=== PATIENT | male | born 1955 | race Caucasian/White ===

== ENCOUNTER 2019-02-23 03:13 | Inpatient (IN) ==
[2019-02-23] MEDS ORDERED: Aspirin 81 MG TAB.CHEW PO ONE (03:18)
[2019-02-23] MEDS ORDERED: Nitroglycerin 0.4 MG TAB.SUBL SL PRN (03:50)
[2019-02-23 04:14] LABS: Basophils # 0.1 K/mcL (0.0-0.2); Basophils % 0.6 %; Eosinophils # 0.3 K/mcL (0.0-0.6); Hemoglobin 13.4 g/dL (12.9-16.9); Immature Granulocytes % 0.4 % (0-4); Lymphocytes # 2.3 K/mcL (0.6-4.6); Lymphocytes % 28.3 %; Mean Corpuscular HGB Conc 33.5 g/dL (31.6-35.5); Mean Corpuscular Hemoglobin 28.3 pg (28.0-33.3); Mean Corpuscular Volume 84.4 fL (83.0-100.0); Mean Platelet Volume 8.7 fL (9.4-12.4); Monocytes # 0.6 K/mcL (0.0-1.3); Monocytes % 7.6 %; Neutrophils # 4.8 K/mcL (1.6-8.9); Platelet Count 321 K/mcL (140-400); Red Blood Count 4.74 M/mcL (4.19-5.50); Red Cell Distribution Width 12.8 % (11.5-14.5); Segmented Neutrophils % 59.1 %
[2019-02-23] MEDS ORDERED: *HR* FentaNYL (PF) 100 MCG/2 ML VIAL IVP ONE (04:20)
[2019-02-23 04:21] LABS: INR 0.9; Prothrombin Time 9.7 Seconds (9.4-12.1)
[2019-02-23 04:37] LABS: Alanine Aminotransferase 8 Units/L (7-52); Albumin 3.6 g/dL (3.5-5.7); Albumin/Globulin Ratio 1.3 (1.1-2.2); Alkaline Phosphatase 90 Units/L (34-104); Aspartate Amino Transferase 13 Units/L (13-39); BUN/Creatinine Ratio 12 (6-26); Bilirubin,Indirect 0.3 mg/dL (0.0-1.2); Bilirubin,Total 0.3 mg/dL (0.3-1.0); Blood Urea Nitrogen 27 mg/dL (8-23); Calcium 8.8 mg/dL (8.6-10.3); Carbon Dioxide 27 mEq/L (23-29); Chloride 97 mEq/L (98-107); Globulin 2.7 g/dL (2.4-3.5); Glucose 500 mg/dL (70-105); Lipase 33 Units/L (11-82); Osmolality,Calculated 307 (280-300); Potassium 3.7 mEq/L (3.5-5.1); Sodium 135 mEq/L (136-145); Total Protein 6.3 g/dL (6.4-8.9); Troponin I < 0.03 ng/mL (< 0.04); eGFR For Non-African Americans 29 (> 60)
--- NOTE | 2019-02-23 04:37 | Emergency Department Note ---
Disposition Clinical Impression: Chest pain Qualifiers: Chest pain type: unspecified Qualified Code(s): R07.9 - Chest pain, unspecified Disposition: Admitted As Inpatient Condition: Fair [facility] Care Provider[facility] - Forms: ED Satisfaction Letter Time of Disposition: 05:53 Chest Pain HPI - General Chief Complaint: ED Chest Pain Stated Complaint: chest pain Time Seen by Provider: 02/23/19 03:18 Source: patient Mode of arrival: ambulatory Limitations: no limitations Vital Signs Reviewed: Yes Nursing Notes Reviewed: Yes - History of Present Illness HPI Narrative: Alert and oriented nontoxic-appearing 64-year-old male with a history of diabetes, hypertension, hyperlipidemia presents for evaluation of a sudden onset of nonradiating left lower chest/left lateral chest pain that began while he was sitting on the couch watching television. He describes the pain as sharp in nature. It is worse with inspiration, cough, and is somewhat reproducible with palpation. He denies any associated nausea, vomiting, diaphoresis, fever, chills, hemoptysis. He denies any known alleviating factors. Currently, he rates his pain a 6 out of 10 on a 10 point scale. Pt complaint: chest pain Onset (ago): Just [employer] Duration: constant Onset: during rest Pain Location: left chest Severity: moderate Severity scale (1-10): 6 Quality: sharp Pain Radiation: none Improves with: nothing Worsens with: exertion, inspiration, palpation, other (Cough) Associated symptoms: Denies: nausea, vomiting, diaphoresis, syncope, palpitations, fever, leg swelling Treatments prior to arrival chest pain: none - Related Data Home Medications Medication Instructions Recorded Confirmed Cyanocobalamin (Vitamin B-12) 100 mcg PO HS 05/28/17 01/15/19 [Vitamin B-12] Lisinopril [Zestril] 40 mg PO DAILY 05/28/17 01/15/19 Magnesium Oxide [Magnesium] 400 mg PO QPM 05/28/17 01/15/19 Subcutaneous Insulin Pump [T:Slim] 1 each MC AD 05/28/17 01/15/19 Tamsulosin [Flomax] 0.4 mg PO HS 05/28/17 01/15/19 hydroCHLOROthiazide 25 mg PO DAILY 05/28/17 01/15/19 [Hydrochlorothiazide] Amlodipine Besylate 2.5 mg PO DAILY 01/14/19 01/15/19 Folic Acid 1 mg PO BID 01/14/19 01/15/19 Acetaminophen [Tylenol] 1,000 mg PO BID PRN 01/15/19 01/15/19 Acetaminophen/Butalbital/Caffe 1 tab PO TID PRN MDD 6 TABS PER DAY 01/15/19 01/15/19 [Fioricet] Acyclovir [Zovirax] 400 mg PO BID 01/15/19 01/15/19 Aspirin [Adult Aspirin Regimen] 81 mg PO HS 01/15/19 01/15/19 Aspirin/Acetaminophen/Caffeine 2 tab PO DAILY PRN 01/15/19 01/15/19 [Excedrin Migraine Caplet] Aspirin/Sod Bicarb/Citric Acid 2 tab PO DAILY 01/15/19 01/15/19 [[place] Original Tab Eff] Atorvastatin Calcium [Lipitor] 80 mg PO HS 01/15/19 01/15/19 Capsaicin [Arthritis Pain Relief] 1 appl TP TID PRN 01/15/19 01/15/19 Cetirizine HCl [Zyrtec] 10 mg PO DAILY 01/15/19 01/15/19 DULoxetine [Cymbalta] 90 mg PO HS 01/15/19 01/15/19 Dextrose/Vitamin D3 [Trueplus 4 tab PO PRN PRN 01/15/19 01/15/19 Glucose 4 gm Tab Chew] EPINEPHrine [Epipen] 0.3 mg IM ONCE PRN 01/15/19 01/15/19 Ergocalciferol (VITAMIN D2) 6,000 unit PO HS 01/15/19 01/15/19 [Vitamin D2] Folic Acid/Vit Bcomp,C [Hm Super 400 mcg PO HS 01/15/19 01/15/19 Vitamin B Complex] Glucagon,Human Recombinant 1 mg IJ ONCE PRN 01/15/19 01/15/19 [Glucagon Emergency Kit] Insulin ASPART [NovoLOG] 0 unit SQ AD 01/15/19 01/15/19 Magnesium Oxide [Magnesium] 800 mg PO QAM 01/15/19 01/15/19 Multivitamin [Daily Multiple 1 tab PO HS 01/15/19 01/15/19 Vitamin] Omeprazole Magnesium [Prilosec Otc] 20 mg PO HS 01/15/19 01/15/19 Previous Rx's Medication Instructions Recorded Aspirin Enteric Coated [Aspirin EC] 81 mg PO HS tablet. 01/18/19 Propranolol [Inderal] 10 mg PO HS #30 tablet 01/18/19 SUMAtriptan succinate [Imitrex] 50 mg PO DAILY PRN #20 tablet 01/18/19 Allergies Allergy/AdvReac Type Severity Reaction Status Date / Time No Known Allergies Allergy Verified 01/15/19 16:58 All systems ED: reviewed and negative except as stated. Review of Systems: As Per HPI Constitutional: Denies: fever, chills, weakness, weight change Eyes: Denies: eye pain, eye discharge, vision change ENT ED: Denies: ear pain, throat pain, dental pain, hearing loss, epistaxis, congestion, dysphagia Cardiovascular: Reports: as per HPI, chest pain. Denies: palpitations, dyspnea on exertion, edema, syncope Respiratory: Denies: cough, dyspnea, wheezes, hemoptysis, stridor Gastrointestinal: Denies: abdominal pain, nausea, vomiting, diarrhea, constipation, hematemesis, melena, hematochezia Genitourinary: Denies: urgency, dysuria, frequency, hematuria Musculoskeletal: Denies: back pain, neck pain, arthralgia, myalgia Integumentary: Denies: rash, abrasion, lesions Neurological: Denies: headache, weakness, numbness, paresthesias, confusion, abnormal gait, vertigo Psychiatric: Denies: anxiety, depression, suicidal thoughts, homicidal thoughts, auditory hallucinations, visual hallucinations Endocrine: Denies: fatigue Hematological/Lymphatic: Denies: easy bleeding, easy bruising Allergic/Immunologic: Denies: facial swelling, urticaria Chest Pain PMH - Past Medical History Medical history: Reports: diabetes, hypertension, migraine, renal disease, other Surgical history: Reports: appendectomy, cholecystectomy, other Psychiatric history: Reports: anxiety, depression - Social History Smoking Status: Former smoker Alcohol use: Reports: occasionally Drug use: Reports: none Physical Exam - General Limitations: no limitations General appearance: alert, in no apparent distress - Head Head exam: atraumatic, normocephalic, normal inspection - Eye Eye exam: Present: normal appearance, PERRL, EOMI. Absent: conjunctival injection - ENT ENT exam: mucous membranes moist - Neck Neck exam: Present: normal inspection, full ROM - Chest Chest inspection: Present: normal inspection, symmetric chest wall rise, tenderness (Left-sided anterior/anterolateral chest wall tenderness with palpation area this somewhat reproduces the patient's symptoms but not in their entirety.) - Respiratory Respiratory exam: Present: normal lung sounds bilaterally. Absent: respiratory distress, wheezes, stridor, accessory muscle use, prolonged expiratory phase - Cardiovascular Cardiovascular exam: Present: regular rate, normal rhythm, normal heart sounds - Abdominal Exam Abdominal exam: Present: soft, Non-Tender, normal bowel sounds - Extremities Exam Extremities exam: Present: normal inspection, full ROM. Absent: pedal edema - Neurological Exam Neurological exam: Present: alert, oriented X3, normal gait - Psychiatric Psychiatric exam: Present: normal affect, normal mood - Skin Skin exam: Present: warm, dry, intact, normal color. Absent: rash Course Course Narrative: 0516: I spoke with Dr. Duncan, admitting hospitalist. He has accepted the patient for admission to the hospitalist care for a chest pain rule out. This patient's case has been discussed with Dr. Hartman as well. Dr. Hartman has had a [id number] evaluation with the patient and agrees with admission to the hospitalist service. - Reevaluation(s) Reevaluation #1: The patient states complete resolution of chest pain after the administration of IV fentanyl. He has a normal EKG. Normal troponin. Normal chest x-ray. He does, however, have a heart score of 4. As such, he will be admitted to medicine for further cardiac evaluation. The patient is agreeable with this plan. Time: 05:30 Vital Signs Temperature 98.2 F 02/23/19 03:15 Pulse Rate 102 02/23/19 03:15 Respiratory Rate 02/23/19 03:15 Blood Pressure 218/126 02/23/19 03:15 O2 Sat by Pulse Oximetry 97 02/23/19 03:15 Temperature 98.2 F 02/23/19 03:15 Pulse Rate 82 02/23/19 05:24 Respiratory Rate 20 02/23/19 05:24 Blood Pressure 177/126 02/23/19 05:24 O2 Sat by Pulse Oximetry 96 02/23/19 05:24 Oxygen Delivery Oxygen Delivery Room Air Chest Pain - Medical Records Medical records reviewed: Yes I reviewed the patient's medical records. - Lab Data Lab results reviewed: Yes I reviewed the patient's lab results. Lab results narrative: Lab Results 02/23/19 02/23/19 02/23/19 Range/Units 03:52 03:52 03:52 WBC 8.2 (4.3-11.1) K/mcL RBC 4.74 (4.19-5.50) M/mcL Hgb 13.4 (12.9-16.9) g/dL Hct 40.0 (37.5-50.1) % MCV 84.4 (83.0-100.0) fL MCH 28.3 (28.0-33.3) pg MCHC 33.5 (31.6-35.5) g/dL RDW 12.8 (11.5-14.5) % Plt Count 321 (140-400) K/mcL MPV 8.7 L (9.4-12.4) fL Immature Gran % 0.4 (0-4) % Seg Neutrophils % 59.1 % Lymphocytes % 28.3 % Monocytes % 7.6 % Eosinophils % 4.0 % Basophils % 0.6 % Neutrophils # 4.8 (1.6-8.9) K/mcL Lymphocytes # 2.3 (0.6-4.6) K/mcL Monocytes # 0.6 (0.0-1.3) K/mcL Eosinophils # 0.3 (0.0-0.6) K/mcL Basophils # 0.1 (0.0-0.2) K/mcL PT 9.7 (9.4-12.1) Seconds INR 0.9 APTT 32.0 (26.0-36.0) Seconds D-Dimer 480 (0-500) ng/mLFEU Sodium 135 L (136-145) mEq/L Potassium 3.7 (3.5-5.1) mEq/L Chloride 97 L (98-107) mEq/L Carbon Dioxide 27 (23-29) mEq/L BUN 27 H (8-23) mg/dL Creatinine 2.28 H (0.70-1.30) mg/dL Est GFR ( Amer) 35 L (> 60) Est GFR (Non-Af Amer) 29 L (> 60) BUN/Creatinine Ratio 12 (6-26) Glucose 500 H* (70-105) mg/dL Calculated Osmolality 307 H (280-300) Calcium 8.8 (8.6-10.3) mg/dL Total Bilirubin 0.3 (0.3-1.0) mg/dL Direct Bilirubin 0.0 (0.0-0.2) mg/dL Indirect Bilirubin 0.3 (0.0-1.2) mg/dL AST 13 (13-39) Units/L ALT 8 (7-52) Units/L Alkaline Phosphatase 90 (34-104) Units/L Troponin I < 0.03 (< 0.04) ng/mL Serum Total Protein 6.3 L (6.4-8.9) g/dL Albumin 3.6 (3.5-5.7) g/dL Globulin 2.7 (2.4-3.5) g/dL Albumin/Globulin Ratio 1.3 (1.1-2.2) Lipase 33 (11-82) Units/L Result diagrams: 02/23/19 03:52 02/23/19 03:52 Lab Results 02/23/19 02/23/19 02/23/19 Range/Units 03:52 03:52 03:52 WBC 8.2 (4.3-11.1) K/mcL RBC 4.74 (4.19-5.50) M/mcL Hgb 13.4 (12.9-16.9) g/dL Hct 40.0 (37.5-50.1) % MCV 84.4 (83.0-100.0) fL MCH 28.3 (28.0-33.3) pg MCHC 33.5 (31.6-35.5) g/dL RDW 12.8 (11.5-14.5) % Plt Count 321 (140-400) K/mcL MPV 8.7 L (9.4-12.4) fL Immature Gran % 0.4 (0-4) % Seg Neutrophils % 59.1 % Lymphocytes % 28.3 % Monocytes % 7.6 % Eosinophils % 4.0 % Basophils % 0.6 % Neutrophils # 4.8 (1.6-8.9) K/mcL Lymphocytes # 2.3 (0.6-4.6) K/mcL Monocytes # 0.6 (0.0-1.3) K/mcL Eosinophils # 0.3 (0.0-0.6) K/mcL Basophils # 0.1 (0.0-0.2) K/mcL PT 9.7 (9.4-12.1) Seconds INR 0.9 APTT 32.0 (26.0-36.0) Seconds D-Dimer 480 (0-500) ng/mLFEU Sodium 135 L (136-145) mEq/L Potassium 3.7 (3.5-5.1) mEq/L Chloride 97 L (98-107) mEq/L Carbon Dioxide 27 (23-29) mEq/L BUN 27 H (8-23) mg/dL Creatinine 2.28 H (0.70-1.30) mg/dL Est GFR ( Amer) 35 L (> 60) Est GFR (Non-Af Amer) 29 L (> 60) BUN/Creatinine Ratio 12 (6-26) Glucose 500 H* (70-105) mg/dL Calculated Osmolality 307 H (280-300) Calcium 8.8 (8.6-10.3) mg/dL Total Bilirubin 0.3 (0.3-1.0) mg/dL Direct Bilirubin 0.0 (0.0-0.2) mg/dL Indirect Bilirubin 0.3 (0.0-1.2) mg/dL AST 13 (13-39) Units/L ALT 8 (7-52) Units/L Alkaline Phosphatase 90 (34-104) Units/L Troponin I < 0.03 (< 0.04) ng/mL Serum Total Protein 6.3 L (6.4-8.9) g/dL Albumin 3.6 (3.5-5.7) g/dL Globulin 2.7 (2.4-3.5) g/dL Albumin/Globulin Ratio 1.3 (1.1-2.2) Lipase 33 (11-82) Units/L - Radiology Data Radiology results reviewed: Yes I reviewed the patient's radiology results. - EKG Data EKG attestation: Yes I reviewed and interpreted this EKG. EKG results narrative: EKG shows a sinus rhythm at a rate of 96 bpm. TN interval 176, QRS duration 91, QT/QTc interval 44/435. No ectopy noted. No ST elevation or significant dep ressions. No changes in morphology when compared to an EKG dated from 08/2016. Heart Score - Score History: Moderately Suspicious EKG: Normal Age: 45-65 Risk Factors: Equal/Greater than 3 risk factor or history of atherosclerotic disease Troponin: Less than normal limit HEART Score Total: 4
--- NOTE | 2019-02-23 05:06 | Emergency Department Note ---
Disposition Clinical Impression: Chest pain Disposition: Admitted As Inpatient Condition: Fair [facility]errals: [facility] [Primary Care Provider[facility] - Forms: ED Satisfaction Letter Time of Disposition: 05:12 General Adult HPI - General Chief complaint: ED Chest Pain Stated complaint: chest pain Time Seen by Provider: 02/23/19 03:18 Source: patient Mode of arrival: ambulatory Limitations: no limitations - History of Present Illness Pain Scale: 6 - Related Data Home Medications Medication Instructions Recorded Confirmed Cyanocobalamin (Vitamin B-12) 100 mcg PO HS 05/28/17 01/15/19 [Vitamin B-12] Lisinopril [Zestril] 40 mg PO DAILY 05/28/17 01/15/19 Magnesium Oxide [Magnesium] 400 mg PO QPM 05/28/17 01/15/19 Subcutaneous Insulin Pump [T:Slim] 1 each MC AD 05/28/17 01/15/19 Tamsulosin [Flomax] 0.4 mg PO HS 05/28/17 01/15/19 hydroCHLOROthiazide 25 mg PO DAILY 05/28/17 01/15/19 [Hydrochlorothiazide] Amlodipine Besylate 2.5 mg PO DAILY 01/14/19 01/15/19 Folic Acid 1 mg PO BID 01/14/19 01/15/19 Acetaminophen [Tylenol] 1,000 mg PO BID PRN 01/15/19 01/15/19 Acetaminophen/Butalbital/Caffe 1 tab PO TID PRN MDD 6 TABS PER DAY 01/15/19 01/15/19 [Fioricet] Acyclovir [Zovirax] 400 mg PO BID 01/15/19 01/15/19 Aspirin [Adult Aspirin Regimen] 81 mg PO HS 01/15/19 01/15/19 Aspirin/Acetaminophen/Caffeine 2 tab PO DAILY PRN 01/15/19 01/15/19 [Excedrin Migraine Caplet] Aspirin/Sod Bicarb/Citric Acid 2 tab PO DAILY 01/15/19 01/15/19 [[place] Original Tab Eff] Atorvastatin Calcium [Lipitor] 80 mg PO HS 01/15/19 01/15/19 Capsaicin [Arthritis Pain Relief] 1 appl TP TID PRN 01/15/19 01/15/19 Cetirizine HCl [Zyrtec] 10 mg PO DAILY 01/15/19 01/15/19 DULoxetine [Cymbalta] 90 mg PO HS 01/15/19 01/15/19 Dextrose/Vitamin D3 [Trueplus 4 tab PO PRN PRN 01/15/19 01/15/19 Glucose 4 gm Tab Chew] EPINEPHrine [Epipen] 0.3 mg IM ONCE PRN 01/15/19 01/15/19 Ergocalciferol (VITAMIN D2) 6,000 unit PO HS 01/15/19 01/15/19 [Vitamin D2] Folic Acid/Vit Bcomp,C [Hm Super 400 mcg PO HS 01/15/19 01/15/19 Vitamin B Complex] Glucagon,Human Recombinant 1 mg IJ ONCE PRN 01/15/19 01/15/19 [Glucagon Emergency Kit] Insulin ASPART [NovoLOG] 0 unit SQ AD 01/15/19 01/15/19 Magnesium Oxide [Magnesium] 800 mg PO QAM 01/15/19 01/15/19 Multivitamin [Daily Multiple 1 tab PO HS 01/15/19 01/15/19 Vitamin] Omeprazole Magnesium [Prilosec Otc] 20 mg PO HS 01/15/19 01/15/19 Previous Rx's Medication Instructions Recorded Aspirin Enteric Coated [Aspirin EC] 81 mg PO HS tablet. 01/18/19 Propranolol [Inderal] 10 mg PO HS #30 tablet 01/18/19 SUMAtriptan succinate [Imitrex] 50 mg PO DAILY PRN #20 tablet 01/18/19 Allergies Allergy/AdvReac Type Severity Reaction Status Date / Time No Known Allergies Allergy Verified 01/15/19 16:58 Constitutional: Denies: fever, chills, weakness, weight change Eyes: Denies: eye pain, eye discharge, vision change ENT ED: Denies: ear pain, throat pain, dental pain, hearing loss, epistaxis, congestion, dysphagia Cardiovascular: Reports: as per HPI, chest pain. Denies: palpitations, dyspnea on exertion, edema, syncope Respiratory: Denies: cough, dyspnea, wheezes, hemoptysis, stridor Gastrointestinal: Denies: abdominal pain, nausea, vomiting, diarrhea, constipation, hematemesis, melena, hematochezia Genitourinary: Denies: urgency, dysuria, frequency, hematuria Musculoskeletal: Denies: back pain, neck pain, arthralgia, myalgia Integumentary: Denies: rash, abrasion, lesions Neurological: Denies: headache, weakness, numbness, paresthesias, confusion, abnormal gait, vertigo Psychiatric: Denies: anxiety, depression, suicidal thoughts, homicidal thoughts, auditory hallucinations, visual hallucinations Endocrine: Denies: fatigue Hematological/Lymphatic: Denies: easy bleeding, easy bruising Allergic/Immunologic: Denies: facial swelling, urticaria Past Medical History - Past Medical History Medical history: Reports: diabetes, hypertension, migraine, renal disease, other Surgical history: Reports: appendectomy, cholecystectomy, other Psychiatric history: Reports: anxiety, depression - Social History Smoking Status: Former smoker Smokeless Tobacco Status: No Alcohol use: Reports: occasionally Drug use: Reports: none Physical Exam - General Limitations: no limitations General appearance: alert, in no apparent distress Course Vital Signs Temperature 98.2 F 02/23/19 03:15 Pulse Rate 102 02/23/19 03:15 Respiratory Rate 20 02/23/19 03:15 Blood Pressure 218/126 02/23/19 03:15 O2 Sat by Pulse Oximetry 97 02/23/19 03:15 Temperature 98.2 F 02/23/19 03:15 Pulse Rate 100 02/23/19 04:30 Respiratory Rate 20 02/23/19 04:30 Blood Pressure 210/126 02/23/19 04:30 O2 Sat by Pulse Oximetry 97 02/23/19 04:30 Oxygen Delivery Oxygen Delivery Room Air Medical Decision Making - Lab Data Result diagrams: 02/23/19 03:52 02/23/19 03:52 Lab Results 02/23/19 02/23/19 02/23/19 Range/Units 03:52 03:52 03:52 WBC 8.2 (4.3-11.1) K/mcL RBC 4.74 (4.19-5.50) M/mcL Hgb 13.4 (12.9-16.9) g/dL Hct 40.0 (37.5-50.1) % MCV 84.4 (83.0-100.0) fL MCH 28.3 (28.0-33.3) pg MCHC 33.5 (31.6-35.5) g/dL RDW 12.8 (11.5-14.5) % Plt Count 321 (140-400) K/mcL MPV 8.7 L (9.4-12.4) fL Immature Gran % 0.4 (0-4) % Seg Neutrophils % 59.1 % Lymphocytes % 28.3 % Monocytes % 7.6 % Eosinophils % 4.0 % Basophils % 0.6 % Neutrophils # 4.8 (1.6-8.9) K/mcL Lymphocytes # 2.3 (0.6-4.6) K/mcL Monocytes # 0.6 (0.0-1.3) K/mcL Eosinophils # 0.3 (0.0-0.6) K/mcL Basophils # 0.1 (0.0-0.2) K/mcL PT 9.7 (9.4-12.1) Seconds INR 0.9 APTT 32.0 (26.0-36.0) Seconds D-Dimer 480 (0-500) ng/mLFEU Sodium 135 L (136-145) mEq/L Potassium 3.7 (3.5-5.1) mEq/L Chloride 97 L (98-107) mEq/L Carbon Dioxide 27 (23-29) mEq/L BUN 27 H (8-23) mg/dL Creatinine 2.28 H (0.70-1.30) mg/dL Est GFR ( Amer) 35 L (> 60) Est GFR (Non-Af Amer) 29 L (> 60) BUN/Creatinine Ratio 12 (6-26) Glucose 500 H* (70-105) mg/dL Calculated Osmolality 307 H (280-300) Calcium 8.8 (8.6-10.3) mg/dL Total Bilirubin 0.3 (0.3-1.0) mg/dL Direct Bilirubin 0.0 (0.0-0.2) mg/dL Indirect Bilirubin 0.3 (0.0-1.2) mg/dL AST 13 (13-39) Units/L ALT 8 (7-52) Units/L Alkaline Phosphatase 90 (34-104) Units/L Troponin I < 0.03 (< 0.04) ng/mL Serum Total Protein 6.3 L (6.4-8.9) g/dL Albumin 3.6 (3.5-5.7) g/dL Globulin 2.7 (2.4-3.5) g/dL Albumin/Globulin Ratio 1.3 (1.1-2.2) Lipase 33 (11-82) Units/L Attestation Statement - Attestation Attestation: I have seen this patient with the mid level provider. I personally evaluated this patient. I reviewed the charting by the mid-level provider and in agreement with the charting including past medical history family history review of systems current history and physical examination laboratory testing and imaging. Please see documentation by the mid-level provider for full H&P and documentation. Patient presented to the emergency department with chief complaint of sudden onset of left-sided chest pain. He describes it as sharp but also just very intense and radiating around to the left side of his chest. He states he did not really get short of breath but it does sort of hurt to breathe and he does not feel right. He has never had pain like this before. He does not think he goes into his abdomen but states that he has some chronic issues with his abdomen. He denies palpitations. Denies recent surgery travel or immobilization. He states he has never had chest pain like this in the past he has multiple risk factors for coronary artery disease. EKG is interpreted by myself as a normal sinus rhythm, heart rate of 96, no evidence of acute ischemic dysrhythmia or hyperkalemia with compared to prior EKG, there was no acute change. Chest x-ray as interpreted by radiology showed no acute findings. Basic laboratory studies revealed significant hyperglycemia of 500 negative cardiac enzymes negative d-dimer, chronic renal insufficiency with a creatinine of 2.28, slightly increased from baseline. Because on my physical examination it was difficult to delineate his pain being intra-abdominal versus intrathoracic, he did also order a CT scan of the abdomen pelvis with no IV contrast to evaluate for any evidence of aortic aneurysm as it was in his left upper abdomen/left lower chest sudden onset in nature, and somewhat into his back, CT scan abdomen pelvis showed multiple chronic stable findings, no evidence of aortic pathology. Although the patient's symptoms are relatively atypical, he has never had symptoms like this in the past it has been over 10 years since any cardiac eval uation and he has multiple cardiac risk factors, heart score was 4, and patient will be admitted to the hospital for further evaluation and management of chest pain.
[2019-02-23] MEDS ORDERED: *HR* Labetalol 20 MG/4 ML SYRINGE IVP ONE (05:13)
[2019-02-23] MEDS: Insulin Human Regular 10 UNIT in 0.9 % Sodium Chloride 10 ML IV ONE ×2 (05:15→06:17)
[2019-02-23] MEDS ORDERED: *HR* Dextrose 50 % in Water (Syg) 50 ML SYRINGE IVP PRN (09:52)
[2019-02-23] MEDS ORDERED: traMADol 50 MG TABLET PO PRN (09:52)
[2019-02-23] MEDS ORDERED: Ondansetron 4 MG/2 ML VIAL IVP PRN (09:52)
[2019-02-23] MEDS ORDERED: D5% in Water 1,000 ML IVC PRN (09:52)
[2019-02-23] MEDS ORDERED: Acetaminophen 325 MG TABLET PO PRN (09:52)
[2019-02-23] MEDS ORDERED: Dextrose Gel 15 GM/37.5 ML TUBE PO PRN ×2 (09:52)
[2019-02-23] MEDS ORDERED: Naloxone 0.4 MG/ML INJ IVP PRN (09:52)
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
[2019-02-23] MEDS ORDERED: Capsaicin 0.025% 60 GM TUBE TP PRN (09:59)
[2019-02-23] MEDS ORDERED: 0.9 % Sodium Chloride 1,000 ML IVC SCH (10:00)
[2019-02-23] MEDS: Magnesium Oxide 400 MG TABLET PO SCH ×2 (10:38→17:32)
[2019-02-23] MEDS: amLODIPine 5 MG TABLET PO SCH (10:38)
[2019-02-23] MEDS: *HR* HYDROcodone/Acet 5/325 mg TABLET PO PRN ×2 (10:38→22:27)
[2019-02-23] MEDS: Lisinopril 20 MG TABLET PO SCH (10:38)
[2019-02-23] MEDS: Acyclovir 200 MG CAPSULE PO SCH ×2 (10:42→21:31)
[2019-02-23 10:52] LABS: Magnesium 2.1 mg/dL (1.6-2.6)
[2019-02-23 10:53] LABS: Troponin I < 0.03 ng/mL (< 0.04)
[2019-02-23] MEDS: Insulin LISPRO 300 UNITS/3 ML VIAL SQ SCH ×2 (12:04→17:31)
[2019-02-23 12:14] LABS: Estimated Average Glucose 226 mg/dl; Hemoglobin A1C 9.5 %
--- NOTE | 2019-02-23 13:15 | Electrocardiograph Report ---
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
[2019-02-23] MEDS: *HR* Heparin 5,000 UNIT/ML VIAL SQ SCH ×2 (15:17→21:28)
[2019-02-23] MEDS ORDERED: Insulin LISPRO 300 UNITS/3 ML VIAL SQ SCH (21:00)
[2019-02-23] MEDS: SUMAtriptan succinate 50 MG TABLET PO PRN (21:26)
[2019-02-23] MEDS: Aspirin Enteric Coated 81 MG Tablet PO SCH (21:27)
[2019-02-24] MEDS ORDERED: Regadenoson 0.4 MG/5 ML SYRINGE IVP ONE (06:10)
[2019-02-24] MEDS: *HR* Heparin 5,000 UNIT/ML VIAL SQ SCH ×3 (06:37→21:09)
[2019-02-24] MEDS: Acyclovir 200 MG CAPSULE PO SCH (07:39)
[2019-02-24] MEDS: Magnesium Oxide 400 MG TABLET PO SCH ×2 (07:39→17:18)
[2019-02-24] MEDS: *HR* HYDROcodone/Acet 5/325 mg TABLET PO PRN ×2 (07:39→15:27)
[2019-02-24] MEDS: Insulin LISPRO 300 UNITS/3 ML VIAL SQ SCH (07:40)
[2019-02-24 08:53] LABS: Hematocrit 39.8 % (37.5-50.1); Hemoglobin 12.9 g/dL (12.9-16.9); Mean Corpuscular HGB Conc 32.4 g/dL (31.6-35.5); Mean Corpuscular Hemoglobin 27.8 pg (28.0-33.3); Mean Corpuscular Volume 85.8 fL (83.0-100.0); Mean Platelet Volume 8.6 fL (9.4-12.4); Platelet Count 330 K/mcL (140-400); Red Blood Count 4.64 M/mcL (4.19-5.50); Red Cell Distribution Width 13.4 % (11.5-14.5)
[2019-02-24 09:08] LABS: Potassium 3.5 mEq/L (3.5-5.1)
--- NOTE | 2019-02-24 09:17 | Electrocardiograph Report ---
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
[2019-02-24] MEDS: amLODIPine 5 MG TABLET PO SCH (09:40)
[2019-02-24] MEDS: Lisinopril 20 MG TABLET PO SCH (09:40)
--- NOTE | 2019-02-24 10:22 | Internal Med Progress Note ---
Hospitalist Progress Note - Encounter Date of Encounter: 02/24/19 Time of Encounter: 10:20 - Subjective Interval History: Admitted for chest pain and hypertensive urgency - Exam Vitals: Temp Pulse Resp BP Pulse Ox 98.2 F 93 16 141/86 98 02/24/19 07:25 02/24/19 07:25 02/24/19 07:25 02/24/19 09:38 02/24/19 07:25 Exam: General appearance: Present: A&O X 3, no acute distress Head exam: Present: normocephalic Respiratory exam: Present: CTAB. Absent: accessory muscle use, rales, rhonchi, wheezes Cardiovascular exam: Present: RRR, +S1, +S2. Absent: diastolic murmur, gallop, rubs, systolic murmur GI/Abdominal exam: Soft, NT, ND, +BS Extremities exam: Absent: pedal edema Neurological exam: Present: alert, oriented X3, no focal deficits. Absent: altered - Assessment and Plan (1) Hypertensive urgency Current Visit: Yes Status: Acute Assessment and Plan: BP was 218/126 on arrival.He was given Labetalol 10mg IV x1. Resume oral anti-hypertensive therapy.Hydralazine IV prn BP controlled this am on oral amlodipine and lisinopril (2) Diabetes mellitus Current Visit: Yes Status: Chronic Assessment and Plan: Patient with insulin-dependent diabetes mellitus status post pancreatectomy HGB a1c 9.5 Continue basal insulin and SSI. Outpatient management (3) Polycystic kidney disease Current Visit: Yes Status: Chronic Assessment and Plan: Likely contributing to poorly controlled hypertension CT abdomen/pelvis revealed polycystic kidney disease with numerous benign and proteinaceous cysts, not appreciably changed since the previous study on 05/22. Outpatient management. (4) Chest pain Current Visit: Yes Status: Acute Assessment and Plan: Patient with left sided chest pain the setting of hypertensive urgency. Chest pain is reproducible with chest wall palpation Given patient's age and CAD risk factors (hypertension, DM, BMI > 30), patient w as scheduled for stress test this am However patient says medication for stress test gave him a severe headache and stress test was halted Echo was done and came back WNL Pt has reproducible chest pain in a dermatomal distribution suspicious for shingles Started on valcyclovir TID (5) CKD (chronic kidney disease) stage 3, GFR 30-59 ml/min Current Visit: Yes Status: Chronic Assessment and Plan: Renal function near baseline. Continue WALI inhibitor. Follow-up with nephrology as an outpatient (6) HLD (hyperlipidemia) Current Visit: No Status: Chronic Assessment and Plan: Continue statin. (7) Obesity (BMI 30.0-34.9) Current Visit: Yes Status: Chronic Assessment and Plan: Lifestyle modification. (8) Headache Current Visit: Yes Status: Acute Assessment and Plan: Symptomatic control. CT head showed no acute intracranial abnormality (9) Shingles Current Visit: Yes Status: Acute Assessment and Plan: On valacyclovir TID (10) DVT prophylaxis Current Visit: No Status: Acute Assessment and Plan: Heparin subcutaneous TID - Time Spent with Patient Total time spent is greater than 50% in coordination of care (as documented) at patient's floor/unit and/or counseling patient: Internal Medicine: Result - Labs CBC & Chem 7: 02/24/19 08:29 02/24/19 08:29 Labs: Short CBC 02/24/19 Range/Units 08:29 WBC 8.8 (4.3-11.1) K/mcL Hgb 12.9 (12.9-16.9) g/dL Hct 39.8 (37.5-50.1) % Plt Count 330 (140-400) K/mcL BMP 02/24/19 08:29 Sodium 138 Potassium 3.5 Chloride 104 Carbon Dioxide 27 BUN 25 H Creatinine 1.82 H Glucose 153 H Calcium 9.0 Cardiac Enzymes 02/23/19 02/23/19 02/23/19 Range/Units 10:17 15:47 18:16 Troponin I < 0.03 < 0.03 < 0.03 (< 0.04) ng/mL - ABG Interpretation ABG results: PT/INR, D-dimer PT 9.7 Seconds (9.4-12.1) 02/23/19 03:52 480 ng/mLFEU (0-500) 02/23/19 03:52 - Impressions Impressions Abdomen/Pelvis CT 02/23/19 04:19 IMPRESSION: 1. No acute findings in the abdomen or pelvis to account for the patient's pain. 2. Polycystic kidney disease with numerous benign and proteinaceous cysts, not appreciably changed since the previous study on 05/22/2017. 3. Enlarged prostate. 4. Colonic diverticulosis. D/ / 02/23/2019 08:33:20 Tomas Maria MD / dion Interpreting Provider: Tomas Maria MD Consult Discharge Plan - Plan [facility]errals: [facility] [Primary Care Provider] - (2) Diabetes mellitus Qualifiers: Diabetes mellitus type: type 2 Diabetes mellitus snf insulin use: with snf use Diabetes mellitus complication status: without complication Qualified Code(s): E11.9 - Type 2 diabetes mellitus without complications; Z79.4 - extermination supervisor (current) use of insulin (4) Chest pain Qualifiers: Chest pain type: unspecified Qualified Code(s): R07.9 - Chest pain, unspecified (6) HLD (hyperlipidemia) Qualifiers: Hyperlipidemia type: unspecified Qualified Code(s): E78.5 - Hyperlipidemia, unspecified (8) Headache Qualifiers: Headache type: other vascular headache Qualified Code(s): G44.1 - Vascular headache, not elsewhere classified (9) Shingles Qualifiers: Qualified Code(s): B02.9 - Zoster without complications
[2019-02-24] MEDS: SUMAtriptan succinate 50 MG TABLET PO PRN (12:35)
[2019-02-24] MEDS: valACYclovir 500 MG TABLET PO SCH ×2 (14:34→21:09)
[2019-02-24] MEDS: Aspirin Enteric Coated 81 MG Tablet PO SCH (21:09)
[2019-02-25 04:32] LABS: Basophils % 0.4 %; Eosinophils # 0.3 K/mcL (0.0-0.6); Eosinophils % 3.4 %; Hematocrit 38.2 % (37.5-50.1); Hemoglobin 12.2 g/dL (12.9-16.9); Immature Granulocytes % 0.2 % (0-4); Lymphocytes # 2.6 K/mcL (0.6-4.6); Lymphocytes % 31.4 %; Mean Corpuscular HGB Conc 31.9 g/dL (31.6-35.5); Mean Corpuscular Hemoglobin 28.4 pg (28.0-33.3); Mean Corpuscular Volume 88.8 fL (83.0-100.0); Mean Platelet Volume 8.9 fL (9.4-12.4); Monocytes # 0.8 K/mcL (0.0-1.3); Monocytes % 9.5 %; Neutrophils # 4.5 K/mcL (1.6-8.9); Platelet Count 292 K/mcL (140-400); Red Cell Distribution Width 13.2 % (11.5-14.5); Segmented Neutrophils % 55.1 %
[2019-02-25 04:49] LABS: Calcium 9.1 mg/dL (8.6-10.3); Magnesium 2.2 mg/dL (1.6-2.6); Phosphorous 3.4 mg/dL (2.7-4.5); Potassium 3.6 mEq/L (3.5-5.1)
[2019-02-25] MEDS: *HR* Heparin 5,000 UNIT/ML VIAL SQ SCH (05:09)
[2019-02-25 07:17] VITALS: BP 115/70
[2019-02-25] MEDS: valACYclovir 500 MG TABLET PO SCH (08:15)
[2019-02-25] MEDS: Lisinopril 20 MG TABLET PO SCH (08:15)
[2019-02-25] MEDS: Magnesium Oxide 400 MG TABLET PO SCH (08:16)
[2019-02-25] MEDS: amLODIPine 5 MG TABLET PO SCH (08:16)
[2019-02-25] MEDS: *HR* HYDROcodone/Acet 5/325 mg TABLET PO PRN ×2 (08:59→12:18)
--- NOTE | 2019-02-25 09:45 | Discharge Summary ---
Date of Encounter: 02/25/19 Time of Encounter: 09:40 - Discharge Diagnosis (1) Hypertensive urgency Priority: Primary Status: Acute Assessment and Plan: 64 [facility] patient with a PMH of HTN, HLD, CKD stage III due to polycystic kidney disease, and diabetes mellitus on an insulin pump s/p pancreatectomy who presented to the ED complaining of chest pain localized to his LUQ and anterior chest wall in a dermatomal distribution below his left breast. Pain is intermittent, sharp, 8/10 severity, occurs at rest, and resolves spontaneously. Chest pain is reproducible with anterior chest wall/ LUQ palpation. Patient reports associated increased stress as he is currently in the middle of a lawsuit with his employer. He was admitted with chest pain, headache and hypertensive urgency. BP was 218/126 on arrival.He was given Labetalol 10mg IV x1 and Hydralazine IV prn. His BP was subsequently controlled on oral amlodipine and lisinopril. For his chest pain, he appears to have the pain in a dermatomal distribution below the left breast and was started on valtrex for shingles with improvement. He will be discharged to complete a 7 day course of valtrex. He had negative troponins, an echo was done which came back WNL. A stress test was ordered on admission but had to be stopped the next day because he complained of severe headache with the nuclear medicine. A CT head was done for the severe headache and came back negative. He was discharged home in a stable condition. 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 (3) Polycystic kidney disease Priority: Primary Status: Chronic (4) Chest pain Priority: Primary Status: Acute Qualifiers: Chest pain type: unspecified Qualified Code(s): R07.9 - Chest pain, unspecified (5) CKD (chronic kidney disease) stage 3, GFR 30-59 ml/min Priority: Primary Status: Chronic (6) HLD (hyperlipidemia) Priority: Primary Status: Chronic Qualifiers: Hyperlipidemia type: unspecified Qualified Code(s): E78.5 - Hyperlipidemia, unspecified (7) Obesity (BMI 30.0-34.9) Priority: Primary Status: Chronic (8) Headache Priority: Primary Status: Acute Qualifiers: Headache type: other vascular headache Qualified Code(s): G44.1 - Vascular headache, not elsewhere classified (9) Shingles Priority: Primary Status: Acute Qualifiers: Qualified Code(s): B02.9 - Zoster without complications (10) DVT prophylaxis Priority: Primary Status: Acute Hospital course: Mr. Reece is a 64 year old male - Time Spent with Patient Total time spent providing and/or coordinating discharge services: - Discharge Medications Prescriptions: New valACYclovir [Valtrex] 1,000 mg PO TID 6 Days #18 tablet Continued Subcutaneous Insulin Pump [T:Slim] 1 each MC AD Magnesium Oxide [Magnesium] 400 mg PO QPM Lisinopril [Zestril] 40 mg PO DAILY Amlodipine Besylate 2.5 mg PO DAILY Folic Acid 1 mg PO BID Acetaminophen/Butalbital/Caffe [Fioricet] 1 tab PO TID PRN MDD 6 TABS PER DAY PRN Reason: Headache Aspirin [Adult Aspirin Regimen] 81 mg PO HS Aspirin/Acetaminophen/Caffeine [Excedrin Migraine Caplet] 2 tab PO DAILY PRN PRN Reason: Headache Aspirin/Sod Bicarb/Citric Acid [[place] Original Tab Eff] 2 tab PO DAILY Atorvastatin Calcium [Lipitor] 80 mg PO HS Capsaicin [Arthritis Pain Relief] 1 appl TP TID PRN PRN Reason: ABDOMINAL SCAR Cetirizine HCl [Zyrtec] 10 mg PO DAILY Dextrose/Vitamin D3 [Trueplus Glucose 4 gm Tab Chew] 4 tab PO PRN PRN PRN Reason: LOW BLOOD SUGAR DULoxetine [Cymbalta] 90 mg PO HS EPINEPHrine [Epipen] 0.3 mg IM ONCE PRN PRN Reason: Allergic Reaction Glucagon,Human Recombinant [Glucagon Emergency Kit] 1 mg IJ ONCE PRN PRN Reason: LOW BLOOD SUGAR Magnesium Oxide [Magnesium] 800 mg PO QAM Multivitamin [Daily Multiple Vitamin] 1 tab PO HS SUMAtriptan succinate [Imitrex] 50 mg PO DAILY PRN #20 tablet PRN Reason: Migraine Headache Propranolol [Inderal] 10 mg PO HS #30 tablet Acetaminophen [Non-Aspirin] 650 mg PO DAILY PRN PRN Reason: Pain Lidocaine Patch [Lidoderm 5% patch] 1 patch TP DAILY PRN PRN Reason: Pain Discontinued hydroCHLOROthiazide [Hydrochlorothiazide] 25 mg PO DAILY Acyclovir [Zovirax] 400 mg PO BID Home Medications: Lisinopril [Zestril] 40 mg PO DAILY 05/28/17 [History] Magnesium Oxide [Magnesium] 400 mg PO QPM 05/28/17 [History] Subcutaneous Insulin Pump [T:Slim] 1 each MC AD 05/28/17 [History] Amlodipine Besylate 2.5 mg PO DAILY 01/14/19 [History] Folic Acid 1 mg PO BID 01/14/19 [History] Acetaminophen/Butalbital/Caffe [Fioricet] 1 tab PO TID PRN MDD 6 TABS PER DAY 01/15/19 [History] Aspirin [Adult Aspirin Regimen] 81 mg PO HS 01/15/19 [History] Aspirin/Acetaminophen/Caffeine [Excedrin Migraine Caplet] 2 tab PO DAILY PRN 01/15/19 [History] Aspirin/Sod Bicarb/Citric Acid [[place] Original Tab Eff] 2 tab PO DAILY 01/15/19 [History] Atorvastatin Calcium [Lipitor] 80 mg PO HS 01/15/19 [History] Capsaicin [Arthritis Pain Relief] 1 appl TP TID PRN 01/15/19 [History] Cetirizine HCl [Zyrtec] 10 mg PO DAILY 01/15/19 [History] DULoxetine [Cymbalta] 90 mg PO HS 01/15/19 [History] Dextrose/Vitamin D3 [Trueplus Glucose 4 gm Tab Chew] 4 tab PO PRN PRN 01/15/19 [ History] EPINEPHrine [Epipen] 0.3 mg IM ONCE PRN 01/15/19 [History] Glucagon,Human Recombinant [Glucagon Emergency Kit] 1 mg IJ ONCE PRN 01/15/19 [History] Magnesium Oxide [Magnesium] 800 mg PO QAM 01/15/19 [History] Multivitamin [Daily Multiple Vitamin] 1 tab PO HS 01/15/19 [History] Propranolol [Inderal] 10 mg PO HS #30 tablet 01/18/19 [Rx] SUMAtriptan succinate [Imitrex] 50 mg PO DAILY PRN #20 tablet 01/18/19 [Rx] Acetaminophen [Non-Aspirin] 650 mg PO DAILY PRN 02/23/19 [History] Lidocaine Patch [Lidoderm 5% patch] 1 patch TP DAILY PRN 02/23/19 [History] valACYclovir [Valtrex] 1,000 mg PO TID 6 Days #18 tablet 02/25/19 [Rx] Allergies/Adverse Reactions: Allergy/AdvReac Type Severity Reaction Status Date / Time No Known Allergies Allergy Verified 01/15/19 16:58 Date of admission: 02/24/19 10:18 [facility] - Constitutional Vitals: Temp Pulse Resp BP Pulse Ox 98.4 F 91 16 115/70 96 02/25/19 07:12 02/25/19 07:12 02/25/19 07:12 02/25/19 07:12 02/25/19 07:12 General appearance: Present: cooperative, A&O X 3, pleasant, no acute distress, obese, answers questions appropriately Exam: General appearance: Present: A&O X 3, no acute distress Head exam: Present: normocephalic Respiratory exam: Present: CTAB. Absent: accessory muscle use, rales, rhonchi, wheezes Cardiovascular exam: Present: RRR, +S1, +S2. Absent: diastolic murmur, gallop, rubs, systolic murmur GI/Abdominal exam: Soft, NT, ND, +BS Extremities exam: Absent: pedal edema Neurological exam: Present: alert, oriented X3, no focal deficits. Absent: altered - Patient Status Disposition: Home, Self-Care Condition: Fair - Discharge Instructions Instructions: Valacyclovir (By mouth), Chest Pain (DC), Diabetes Mellitus Type 2 in Adults (DC), Chronic Hypertension (DC), Hypertensive Crisis (DC) [facility]: [facility] [Primary Care Provider[facility] - (please make hospital follow up appointment )
== END 2019-02-25 13:19 | disposition home or self-care (01) | DRG 305 ==
LOC: EMEROOARM 03:13 → 2NENU 03:13
PROVIDERS: ADMIT Internal Medicine; ATTEND Internal Medicine

== ENCOUNTER 2019-04-03 20:11 | Inpatient (IN) ==
[2019-04-03] MEDS ORDERED: 0.9 % Sodium Chloride 1,000 ML IVC ONE (20:43)
--- NOTE | 2019-04-03 20:57 | Emergency Department Note ---
Disposition Clinical Impression: Confusion, CVA (cerebral vascular accident) Disposition: Admitted As Inpatient [facility]errals: [facility] [Primary Care Provider[facility] - Forms: ED Satisfaction Letter Time of Disposition: 22:23 Neuro HPI - General Chief Complaint: ED Neuro Symptoms/Deficit Stated Complaint: "memory problems", balance problems Time Seen by Provider: 04/03/19 20:35 Source: patient Limitations: no limitations - History of Present Illness HPI Narrative: Patient is 64-year-old gentleman who presents to the emergency department with chief complaint of confusion. The patient reports that his had multiple episodes of falling recently and does since has been noticing has been having problems with memory patient stated he got significantly worse today where yesterday he used his basic password and today was unable to remember his Passcode. The patient is also had difficulty remembering some things but denies focal neurological deficit with light weakness in his arms or legs. Patient states that he called the [place] nurses line and they recommended he come to the emergency department for evaluation. Patient is concerned that he may be having a stroke. The patient reports that he has had some similar episodes and has had extensive evaluations before in the past - Related Data Home Medications: Home Medications Medication Instructions Recorded Confirmed Subcutaneous Insulin Pump [T:Slim] 1 each MC AD 05/28/17 03/20/19 Amlodipine Besylate 2.5 mg PO DAILY 01/14/19 03/20/19 Folic Acid 1 mg PO BID 01/14/19 03/20/19 Atorvastatin Calcium [Lipitor] 80 mg PO HS 01/15/19 03/20/19 DULoxetine [Cymbalta] 90 mg PO HS 01/15/19 03/20/19 EPINEPHrine [Epipen] 0.3 mg IM ONCE PRN 01/15/19 03/18/19 Glucagon,Human Recombinant 1 mg IJ ONCE PRN 01/15/19 03/20/19 [Glucagon Emergency Kit] Multivitamin [Daily Multiple 1 tab PO HS 01/15/19 03/18/19 Vitamin] Lidocaine Patch [Lidoderm 5% patch] 1 patch TP DAILY PRN 02/23/19 03/20/19 Magnesium Oxide [Magnesium] 800 mg PO QAM #0 03/18/19 03/20/19 Acyclovir [Zovirax] 400 mg PO BID 03/20/19 03/20/19 Lisinopril [Zestril] 40 mg PO DAILY 03/20/19 03/20/19 Magnesium Oxide [Magnesium] 400 mg PO QPM 03/20/19 03/20/19 hydroCHLOROthiazide 25 mg PO DAILY 03/20/19 03/20/19 [Hydrochlorothiazide] Previous Rx's Medication Instructions Recorded Acetaminophen/Butalbital/Caffe 1 each PO Q4HR PRN #30 tablet 03/20/19 [Fioricet] Allergies/Adverse Reactions: Allergies Allergy/AdvReac Type Severity Reaction Status Date / Time desflurane AdvReac Severe Agitated Verified 03/18/19 23:06 Halothane AdvReac Severe Agitated Verified 03/18/19 23:06 isoflurane AdvReac Severe Agitated Verified 03/18/19 23:06 Sevoflurane AdvReac Severe Agitated Verified 03/18/19 23:06 All systems ED: reviewed and negative except as stated. Past Medical History - Past Medical History Attestation: Yes The following information was validated with the patient. Medical history: Reports: diabetes, hyperlipidemia, hypertension, migraine, renal disease, seizures, other Surgical history: Reports: appendectomy, cholecystectomy, knee replacement Psychiatric history: Reports: anxiety, depression, PTSD - Social History Smoking Status: Former smoker Smokeless Tobacco Status: No Alcohol use: Reports: occasionally Drug use: Reports: none Physical Exam General: Conversant and pleasant interactive and nontoxic. Head: Normocephalic/atraumatic Eyes:PERRLA, EOMI, no conjunctivitis Nares: Without d/c. Ears: No erythema or d/c noted. Oralpharnyx: P&MMM noted, Neck: Supple, no JVD or [employer] noted. Cardovascular: regular rate and rhythm without murmur, brisk capillary refill, no peripheral edema. Lungs: Clear to ascultation bilaterally, non-labored Abd: Soft nontender, Non Distended, no guarding, no rebound. : Defered Extremities: moves all extremities equally Neuro: AOx3, no obvious gross neuro deficit Psych: Normal Affect Derm: No rash noted - General Limitations: no limitations General appearance: alert, in no apparent distress Course Vital Signs Temperature 98.1 F 04/03/19 20:15 Pulse Rate 101 04/03/19 20:15 Respiratory Rate 18 04/03/19 20:15 Blood Pressure 144/105 04/03/19 20:15 O2 Sat by Pulse Oximetry 96 04/03/19 20:15 Temperature 98.1 F 04/03/19 20:15 Pulse Rate 94 04/03/19 22:05 Respiratory Rate 18 04/03/19 20:15 Blood Pressure 150/117 04/03/19 22:05 O2 Sat by Pulse Oximetry 97 04/03/19 22:05 Oxygen Delivery Oxygen Delivery Room Air Neuro Symptoms/Deficit - Lab Data Result diagrams: 04/03/19 21:21 04/03/19 21:21 Lab Results 04/03/19 04/03/19 04/03/19 Range/Units 21:21 21:21 21:21 WBC 10.4 (4.3-11.1) K/mcL RBC 5.19 (4.19-5.50) M/mcL Hgb 15.3 (12.9-16.9) g/dL Hct 44.5 (37.5-50.1) % MCV 85.7 (83.0-100.0) fL MCH 29.5 (28.0-33.3) pg MCHC 34.4 (31.6-35.5) g/dL RDW 12.7 (11.5-14.5) % Plt Count 404 H (140-400) K/mcL MPV 9.2 L (9.4-12.4) fL Immature Gran % 0.3 (0-4) % Seg Neutrophils % 63.7 % Lymphocytes % 23.8 % Monocytes % 9.5 % Eosinophils % 2.0 % Basophils % 0.7 % Neutrophils # 6.7 (1.6-8.9) K/mcL Lymphocytes # 2.5 (0.6-4.6) K/mcL Monocytes # 1.0 (0.0-1.3) K/mcL Eosinophils # 0.2 (0.0-0.6) K/mcL Basophils # 0.1 (0.0-0.2) K/mcL PT 10.6 (9.4-12.1) Seconds INR 0.9 APTT 31.7 (26.0-36.0) Seconds Sodium 139 (136-145) mEq/L Potassium 3.4 L (3.5-5.1) mEq/L Chloride 98 (98-107) mEq/L Carbon Dioxide 29 (23-29) mEq/L BUN 32 H (8-23) mg/dL Creatinine 2.40 H (0.70-1.30) mg/dL Est GFR ( Amer) 33 L (> 60) Est GFR (Non-Af Amer) 27 L (> 60) BUN/Creatinine Ratio 13 (6-26) Glucose 197 H (70-105) mg/dL Calculated Osmolality 300 (280-300) Calcium 10.9 H (8.6-10.3) mg/dL Total Bilirubin 0.3 (0.3-1.0) mg/dL Direct Bilirubin 0.0 (0.0-0.2) mg/dL Indirect Bilirubin 0.3 (0.0-1.2) mg/dL AST 15 (13-39) Units/L ALT 9 (7-52) Units/L Alkaline Phosphatase 74 (34-104) Units/L Troponin I < 0.03 (< 0.04) ng/mL Serum Total Protein 6.7 (6.4-8.9) g/dL Albumin 3.7 (3.5-5.7) g/dL Globulin 3.0 (2.4-3.5) g/dL Albumin/Globulin Ratio 1.2 (1.1-2.2) Ur Drug Screen Interp Ethyl Alcohol < 10 (Less than 10) mg/dL 04/03/19 Range/Units 22:14 WBC (4.3-11.1) K/mcL RBC (4.19-5.50) M/mcL Hgb (12.9-16.9) g/dL Hct (37.5-50.1) % MCV (83.0-100.0) fL MCH (28.0-33.3) pg MCHC (31.6-35.5) g/dL RDW (11.5-14.5) % Plt Count (140-400) K/mcL MPV (9.4-12.4) fL Immature Gran % (0-4) % Seg Neutrophils % % Lymphocytes % % Monocytes % % Eosinophils % % Basophils % % Neutrophils # (1.6-8.9) K/mcL Lymphocytes # (0.6-4.6) K/mcL Monocytes # (0.0-1.3) K/mcL Eosinophils # (0.0-0.6) K/mcL Basophils # (0.0-0.2) K/mcL PT (9.4-12.1) Seconds INR APTT (26.0-36.0) Seconds Sodium (136-145) mEq/L Potassium (3.5-5.1) mEq/L Chloride (98-107) mEq/L Carbon Dioxide (23-29) mEq/L BUN (8-23) mg/dL Creatinine (0.70-1.30) mg/dL Est GFR ( Amer) (> 60) Est GFR (Non-Af Amer) (> 60) BUN/Creatinine Ratio (6-26) Glucose (70-105) mg/dL Calculated Osmolality (280-300) Calcium (8.6-10.3) mg/dL Total Bilirubin (0.3-1.0) mg/dL Direct Bilirubin (0.0-0.2) mg/dL Indirect Bilirubin (0.0-1.2) mg/dL AST (13-39) Units/L ALT (7-52) Units/L Alkaline Phosphatase (34-104) Units/L Troponin I (< 0.04) ng/mL Serum Total Protein (6.4-8.9) g/dL Albumin (3.5-5.7) g/dL Globulin (2.4-3.5) g/dL Albumin/Globulin Ratio (1.1-2.2) Ur Drug Screen Interp See Below Ethyl Alcohol (Less than 10) mg/dL NIH Stroke Scale - Level of Consciousness LOC: Alert - LOC Questions LOC Questions: Answers both correctly - LOC Commands LOC Commands: Performs both correctly - Best Gaze Best Gaze: Normal - Visual Visual: No visual loss - Facial Palsy Facial Palsy: Normal - Motor Arms Motor Arm-Left: No drift for 10 seconds Motor Arm-Right: No drift for 10 seconds - Motor Legs Motor Leg-Left: No drift for 5 seconds Motor Leg-Right: No drift for 5 seconds - Limb Ataxia Limb Ataxia: Normal, No Ataxia - Sensory Sensory: Normal - Best Language Best Language: No aphasia - Dysarthria Dysarthria: Normal - Extinction and Inattention Extinction and Inattention: Normal - NIHSS Total Score NIHSS Total Score: 0 TPA Checklist - Eligibilty for IV tPA 1. LKW equal to or less than 4.5 hours be before treatment: No 3. Age 18 years or older: Yes - LKW: 3-4.5 hrs Add. Warnings/Precautions Patient/family understanding: The patient/family members have been counseled and understood the risk, benefit, and alternatives of treatment.
[2019-04-03 21:45] LABS: Basophils # 0.1 K/mcL (0.0-0.2); Basophils % 0.7 %; Eosinophils # 0.2 K/mcL (0.0-0.6); Hematocrit 44.5 % (37.5-50.1); Hemoglobin 15.3 g/dL (12.9-16.9); Immature Granulocytes % 0.3 % (0-4); Lymphocytes # 2.5 K/mcL (0.6-4.6); Lymphocytes % 23.8 %; Mean Corpuscular HGB Conc 34.4 g/dL (31.6-35.5); Mean Corpuscular Hemoglobin 29.5 pg (28.0-33.3); Mean Corpuscular Volume 85.7 fL (83.0-100.0); Mean Platelet Volume 9.2 fL (9.4-12.4); Monocytes % 9.5 %; Neutrophils # 6.7 K/mcL (1.6-8.9); Platelet Count 404 K/mcL (140-400); Red Blood Count 5.19 M/mcL (4.19-5.50); Red Cell Distribution Width 12.7 % (11.5-14.5); Segmented Neutrophils % 63.7 %; White Blood Count 10.4 K/mcL (4.3-11.1)
[2019-04-03 21:48] LABS: INR 0.9; Prothrombin Time 10.6 Seconds (9.4-12.1)
[2019-04-03 21:51] LABS: Activated Partial Thrombo Time 31.7 Seconds (26.0-36.0)
[2019-04-03 22:03] LABS: Alanine Aminotransferase 9 Units/L (7-52); Albumin 3.7 g/dL (3.5-5.7); Albumin/Globulin Ratio 1.2 (1.1-2.2); Alkaline Phosphatase 74 Units/L (34-104); Aspartate Amino Transferase 15 Units/L (13-39); BUN/Creatinine Ratio 13 (6-26); Bilirubin,Indirect 0.3 mg/dL (0.0-1.2); Bilirubin,Total 0.3 mg/dL (0.3-1.0); Blood Urea Nitrogen 32 mg/dL (8-23); Calcium 10.9 mg/dL (8.6-10.3); Carbon Dioxide 29 mEq/L (23-29); Chloride 98 mEq/L (98-107); Ethanol < 10 mg/dL (Less than 10); Glucose 197 mg/dL (70-105); Osmolality,Calculated 300 (280-300); Potassium 3.4 mEq/L (3.5-5.1); Sodium 139 mEq/L (136-145); Total Protein 6.7 g/dL (6.4-8.9); Troponin I < 0.03 ng/mL (< 0.04); eGFR For African Americans 33 (> 60); eGFR For Non-African Americans 27 (> 60)
[2019-04-03 22:22] LABS: Bilirubin,Urine Negative (Negative); Blood,Urine Negative (Negative); Clarity,Urine Clear (Clear); Color,Urine Yellow (Yellow); Glucose,Urine (UA) 100 mg/dL (Normal); Ketones,Urine Negative (Negative); Leukocyte Esterase,Urine Negative (Negative); Nitrite,Urine Negative (Negative); Protein,Urine >=300 mg/dL (Neg-Trace); Specific Gravity,Urine 1.022 (1.010-1.025); Urobilinogen,Urine Normal (Normal)
[2019-04-03 22:24] LABS: Bacteria,Urine None Seen per hpf (None-Few); Hyaline Casts,Urine None Seen per lpf (None-Few); Squamous Epithelial Cell,Urine Many per lpf (None-Few); WBC,Urine 0-3 per hpf (0-3)
[2019-04-03 22:40] LABS: Amphetamine Screen,Urine Negative ng/mL (Cutoff=1000); Barbiturate Screen,Urine Positive ng/mL (Cutoff=200); Benzodiazepines Screen,Urine Negative ng/mL (Cutoff=200); Cannabinoid Screen,Urine Negative ng/mL (Cutoff = 50); Cocaine Screen,Urine Negative ng/mL (Cutoff= 300); Opiate Screen,Urine Negative ng/mL (Cutoff=300); Phencyclidine Screen,Urine Negative ng/mL (Cutoff=25)
[2019-04-04] MEDS ORDERED: Naloxone 0.4 MG/ML INJ IVP PRN (00:02)
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
[2019-04-04] MEDS ORDERED: Dextrose Gel 15 GM/37.5 ML TUBE PO PRN ×2 (01:15)
[2019-04-04] MEDS ORDERED: *HR* Dextrose 50 % in Water (Syg) 50 ML SYRINGE IVP PRN (01:15)
[2019-04-04] MEDS ORDERED: D5% in Water 1,000 ML IVC PRN (01:15)
[2019-04-04] MEDS: Acetaminophen/Butalbital/CaffeineTABLET PO PRN ×2 (03:19→20:39)
[2019-04-04 04:46] LABS: Hematocrit 42.2 % (37.5-50.1); Hemoglobin 14.3 g/dL (12.9-16.9); Mean Corpuscular HGB Conc 33.9 g/dL (31.6-35.5); Mean Corpuscular Hemoglobin 28.7 pg (28.0-33.3); Mean Corpuscular Volume 84.6 fL (83.0-100.0); Mean Platelet Volume 9.3 fL (9.4-12.4); Platelet Count 369 K/mcL (140-400); Red Blood Count 4.99 M/mcL (4.19-5.50); Red Cell Distribution Width 12.9 % (11.5-14.5); White Blood Count 11.5 K/mcL (4.3-11.1)
[2019-04-04 05:05] LABS: Potassium 2.9 mEq/L (3.5-5.1)
[2019-04-04] MEDS: Acyclovir 200 MG CAPSULE PO SCH ×2 (07:39→20:54)
[2019-04-04] MEDS: Lisinopril 20 MG TABLET PO SCH (07:40)
[2019-04-04] MEDS: Insulin LISPRO 300 UNITS/3 ML VIAL SQ SCH ×3 (07:40→17:36)
[2019-04-04] MEDS ORDERED: amLODIPine 5 MG TABLET PO SCH (09:00)
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
[2019-04-04] MEDS: amLODIPine 5 MG TABLET PO SCH (11:01)
[2019-04-04] MEDS ORDERED: Magnesium Oxide 400 MG TABLET PO SCH (18:00)
[2019-04-04] MEDS: Folic Acid 1 MG TABLET PO SCH (20:54)
[2019-04-04] MEDS ORDERED: Multivit/Ca/Min/Fe/FA 1 TAB TABLET PO SCH (21:00)
[2019-04-04] MEDS ORDERED: Insulin LISPRO 300 UNITS/3 ML VIAL SQ SCH (21:00)
[2019-04-05] MEDS: Acetaminophen/Butalbital/CaffeineTABLET PO PRN ×2 (02:44→08:47)
[2019-04-05 03:05] LABS: Basophils % 0.5 %; Eosinophils # 0.2 K/mcL (0.0-0.6); Eosinophils % 2.3 %; Hematocrit 37.2 % (37.5-50.1); Immature Granulocytes % 0.4 % (0-4); Lymphocytes # 2.5 K/mcL (0.6-4.6); Lymphocytes % 32.2 %; Mean Corpuscular HGB Conc 33.6 g/dL (31.6-35.5); Mean Corpuscular Hemoglobin 29.2 pg (28.0-33.3); Mean Corpuscular Volume 86.9 fL (83.0-100.0); Mean Platelet Volume 9.6 fL (9.4-12.4); Monocytes # 0.8 K/mcL (0.0-1.3); Monocytes % 10.3 %; Neutrophils # 4.2 K/mcL (1.6-8.9); Platelet Count 321 K/mcL (140-400); Red Blood Count 4.28 M/mcL (4.19-5.50); Red Cell Distribution Width 12.9 % (11.5-14.5); Segmented Neutrophils % 54.3 %; White Blood Count 7.8 K/mcL (4.3-11.1)
[2019-04-05 03:07] LABS: Hemoglobin 12.5 g/dL (12.9-16.9)
[2019-04-05 03:11] LABS: Calcium 8.9 mg/dL (8.6-10.3); Potassium 3.1 mEq/L (3.5-5.1)
[2019-04-05 03:12] LABS: Magnesium 1.6 mg/dL (1.6-2.6)
[2019-04-05 04:27] LABS: Thyroid Stimulating Hormone 0.879 mcIU/mL (0.340-5.600)
[2019-04-05] MEDS: Insulin LISPRO 300 UNITS/3 ML VIAL SQ SCH ×2 (08:46→12:13)
[2019-04-05] MEDS: Folic Acid 1 MG TABLET PO SCH (08:47)
[2019-04-05] MEDS: Acyclovir 200 MG CAPSULE PO SCH (08:47)
[2019-04-05] MEDS: amLODIPine 5 MG TABLET PO SCH (08:47)
[2019-04-05] MEDS: Lisinopril 20 MG TABLET PO SCH (08:47)
[2019-04-05] MEDS ORDERED: Magnesium Oxide 400 MG TABLET PO SCH (09:00)
[2019-04-05] MEDS ORDERED: hydroCHLOROthiazide 25 MG TABLET PO SCH (09:00)
--- NOTE | 2019-04-05 09:23 | Event Note ---
Date of Encounter: 04/04/19 Time of Encounter: 09:00 PT admitted for generalized weakness and confusion. He has been in and out hospital several times in the past 2-3 months. He is alert and oriented currently and reported that he has been ambulating today. C/O of pain at the right knee. Neuro consulted and thought it is musculoskeletal issue rather than neurological issues. XR to right knee, if normal, will dc in am.
--- NOTE | 2019-04-05 11:12 | Neurology Progress Note ---
<Que Martinez J - Last Filed: 04/05/19 11:04> Date of Encounter: 04/05/19 Time of Encounter: 11:04 Assessment and Plan (1) Headache Status: Resolved Qualifiers: Headache type: unspecified Headache chronicity pattern: acute headache Intractability: intractable Qualified Code(s): R51 - Headache (2) Confusion Status: Resolved (3) Ambulatory dysfunction Status: Acute The patient was seen in follow-up for ambulatory dysfunction today. He has had neuro imaging including CT of the head which was negative for an acute intracranial abnormality. He was offered MRI of the brain for further evaluation of an acute neurological cause of ambulatory dysfunction however, the patient declined. I have low suspicion for an acute neurological cause of ambulatory dysfunction however as the patient is having right leg pain and right leg weakness which is chronic and there are no focal neurological deficits on exam. Symptoms appear to be of musculoskeletal origin and therefore we are recommending PT/OT evaluation as he may benefit from gait training and physical therapy. Neurology will sign off at this time. He is okay to discharge at the discretion of the primary team. Subjective Principal diagnosis: Ambulatory dysfunction Interval history: Patient seen in follow-up for evaluation of altered mental state, a laboratory dysfunction and falls. Yesterday reporting right knee pain and right leg weakne ss. CT of the head was completed and unremarkable for an acute intracranial abnormality. The neurological exam was nonfocal and nonlateralizing. His symptoms are thought to be musculoskeletal and not an acute neurological origin. However, he was ordered an MRI of the brain for further evaulation of a possible central neurological cause but he declined the MRI. On exam today his primary concerns at this time are in regards to migraine headache. He reports that he has migraines chronically and that this migraine is similar to prior headaches. He has no other complaints at this time. Objective - Constitutional Vitals: Temp Pulse Resp BP Pulse Ox 98.5 F 82 17 164/81 95 04/05/19 08:05 04/05/19 08:05 04/05/19 08:05 04/05/19 08:05 04/05/19 08:05 Exam: Examination: General Examination: *CONSTITUTIONAL: Alert and oriented X 3, no acute distress *GENERAL APPEARANCE OF PATIENT appears healthy and well groomed *EYES: pupils equal, round, reactive to light and accommodation, conjunctiva clear *CARDIOVASCULAR no peripheral edema, distal temperature normal, dorsalis pedis pulses normal. Musculoskeletal: *GAIT AND STATION deferred today *ASSESSMENT OF MUSCLE STRENGTH IN THE UPPER AND LOWER EXTREMITIES bilateral deltoid, bicep, tricep, assistant strength, hip flexors ,anterior tibialis, dorsoflexion of the foot 5/5 *MUSCLE TONE IN THE UPPER AND LOWER EXTREMITIES normal. No abnormal movements, fasciculations. Appears to have some atrophy of the right vastus musculature which he reports is chronic S/P multiple knee surgeries Neurological: *ORIENTATION to person, situation, time and place *RECURRENT AND REMOTE MEMORY intact *ATTENTION AND CONCENTRATION are normal *LANGUAGE FUNCTION no significant aphasia or dysarthia was noted. *FUND OF KNOWLEDGE aware of current events, past history, vocabulary *MENTAL attention span and concentration normal. *CN II optic fundi were normal, no papilledema noted. *CN III,IV, PERRLA extraocular eye movements were full, no nystagmus and no ptosis noted. *CN V shows normal sensation and jaw opens symmetrically. *CN VII shows normal facial movement symmetrically, upper and lower bilaterally. *CN VIII shows no significant hearing loss on exam *CN IX,,X palate elevated symmetrically *CN XI normal strength in the sternocleidomastoid muscles, symmetrical shoulder shrugging. *CN XII tongue protruded in the midline, with normal strength and movement. *SENSORY EXAMINATION light touch intact *REFLEXES: deep tendon reflexes were normal and symmetrical in all muscle groups of the upper extremities, grade 2/4. DTR absent in the right knee S/P knee replacement. Right Achilles 2/4. Left patellar and Achilles 2/4. no pathological reflexes were noted. *CEREBELLAR TESTING normal finger to nose, heel/knee/tsai *PAIN LEVEL 0/10 Results - Laboratory Findings CBC and BMP: 04/05/19 02:05 04/05/19 02:05 Abnormal lab findings: Abnormal lab results WBC 11.5 K/mcL (4.3-11.1) H 04/04/19 03:53 Hgb 12.5 g/dL (12.9-16.9) L D 04/05/19 02:05 Hct 37.2 % (37.5-50.1) L 04/05/19 02:05 Plt Count 404 K/mcL (140-400) H 04/03/19 21:21 MPV 9.3 fL (9.4-12.4) L 04/04/19 03:53 Sodium 133 mEq/L (136-145) L 04/05/19 02:05 Potassium 3.1 mEq/L (3.5-5.1) L 04/05/19 02:05 Chloride 95 mEq/L (98-107) L 04/05/19 02:05 BUN 39 mg/dL (8-23) H 04/05/19 02:05 2.66 mg/dL (0.70-1.30) H 04/05/19 02:05 Est GFR ( Amer) 30 (> 60) L 04/05/19 02:05 Est GFR (Non-Af Amer) 24 (> 60) L 04/05/19 02:05 Glucose 375 mg/dL (70-105) H 04/05/19 02:05 POC Glucose 344 mg/dL (70-99) H 04/05/19 00:03 301 (280-300) H 04/05/19 02:05 Calcium 10.9 mg/dL (8.6-10.3) H 04/03/19 21:21 >=300 mg/dL (Neg-Trace) H 04/03/19 22:14 100 mg/dL (Normal) H 04/03/19 22:14 5-15 per hpf (0-3) H 04/03/19 22:14 Ur Squamous Epith Cells Many per lpf (None-Few) H 04/03/19 22:14 Ur Barbiturates Screen Positive ng/mL (Rnnqnw=008) H 04/03/19 22:14 Consult Discharge Plan - Plan Instructions: Metoprolol (By mouth), Amlodipine (By mouth), Chest Pain (DC), Fall Prevention (DC) [facility] - 04/12/19 2:00 pm Prescriptions: Amlodipine Besylate 10 mg PO DAILY #30 tablet Metoprolol [Lopressor] 25 mg PO BID #60 tablet <Tung Gaines I - Last Filed: 04/05/19 16:56> Date of Encounter: 04/05/19 Assessment and Plan (1) Ambulatory dysfunction Status: Acute I have personally performed a face to face diagnostic evaluation, including HPI, EXAM, which is included in the Assesment and plan, which was discussed with Que Martinez CNP, I agree with the above outlined documentation. Tung Gaines MD. NeurologyI Objective - Constitutional Vitals: Temp Pulse Resp BP Pulse Ox 98.6 F 69 17 150/82 97 04/05/19 11:11 04/05/19 11:11 04/05/19 11:11 04/05/19 11:11 04/05/19 11:11 Results - Laboratory Findings CBC and BMP: 04/05/19 02:05 04/05/19 02:05 Abnormal lab findings: Abnormal lab results WBC 11.5 K/mcL (4.3-11.1) H 04/04/19 03:53 Hgb 12.5 g/dL (12.9-16.9) L D 04/05/19 02:05 Hct 37.2 % (37.5-50.1) L 04/05/19 02:05 Plt Count 404 K/mcL (140-400) H 04/03/19 21:21 MPV 9.3 fL (9.4-12.4) L 04/04/19 03:53 Sodium 133 mEq/L (136-145) L 04/05/19 02:05 Potassium 3.1 mEq/L (3.5-5.1) L 04/05/19 02:05 Chloride 95 mEq/L (98-107) L 04/05/19 02:05 BUN 39 mg/dL (8-23) H 04/05/19 02:05 2.66 mg/dL (0.70-1.30) H 04/05/19 02:05 Est GFR ( Amer) 30 (> 60) L 04/05/19 02:05 Est GFR (Non-Af Amer) 24 (> 60) L 04/05/19 02:05 Glucose 375 mg/dL (70-105) H 04/05/19 02:05 POC Glucose 344 mg/dL (70-99) H 04/05/19 00:03 301 (280-300) H 04/05/19 02:05 Calcium 10.9 mg/dL (8.6-10.3) H 04/03/19 21:21 >=300 mg/dL (Neg-Trace) H 04/03/19 22:14 100 mg/dL (Normal) H 04/03/19 22:14 5-15 per hpf (0-3) H 04/03/19 22:14 Ur Squamous Epith Cells Many per lpf (None-Few) H 04/03/19 22:14 Ur Barbiturates Screen Positive ng/mL (Tdbese=478) H 04/03/19 22:14
[2019-04-05 11:16] VITALS: BP 150/82
--- NOTE | 2019-04-05 11:42 | Discharge Summary ---
- NOTES TO OUTPATIENT PROVIDER Notes to Outpatient Provider: f/u with PCP in one week. Orders not resulted at time of discharge: Pending orders 04/03/19 20:43 ECG 12 lead ECG [ECG] Stat Date of Encounter: 04/05/19 Time of Encounter: 11:36 - Discharge Diagnosis (1) Confusion Priority: Primary Status: Resolved (2) Falls Priority: Primary Status: Acute Qualifiers: Encounter type: initial encounter Qualified Code(s): W19.XXXA - Unspecified fall, initial encounter (3) Headache Priority: Primary Status: Resolved Qualifiers: Headache type: unspecified Headache chronicity pattern: acute headache Intractability: intractable Qualified Code(s): R51 - Headache (4) Diabetes mellitus Priority: Secondary Status: Chronic Qualifiers: Diabetes mellitus type: type 2 Diabetes mellitus nursing home insulin use: with nursing home use Diabetes mellitus complication status: with kidney complications Diabetes mellitus complication detail: with chronic kidney disease Chronic kidney disease stage: stage 3 (moderate) Qualified Code(s): E11.22 - Type 2 diabetes mellitus with diabetic chronic kidney disease; N18.3 - Chronic kidney disease, stage 3 (moderate); 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 Reece is a 64 year old male with known PMH of HTN, HLD, CKD-3, Seizure, DM2 and PTSD pt [facility] confusion, generalied weakness and frequent falls. He did have Rt knee replacement surgery in the past, now he c/o chronic Rt knee pain which is giving up on him when he walks. He was admitted in the hospital and placed him on front desk monitor. He did not have focal neuro deficits. His Rt knee X ray did not show any acute findings other than status post knee arthroplasty. Fernando and I suggested the pt to go for MRI of brain for further work up however he declined to have MRI done. Today pt is more alert, awake , O x4. No focal neuro deficits noticed. So will d/c him home in stable condition today. He did have uncontrolled blood pressure, so increased his Norvasc 10 mg and added new medication metoprolol 25 mg PO b.i.d. - Time Spent with Patient Total time spent providing and/or coordinating discharge services: - Discharge Medications Prescriptions: New Amlodipine Besylate 10 mg PO DAILY #30 tablet Metoprolol [Lopressor] 25 mg PO BID #60 tablet Continued Subcutaneous Insulin Pump [T:Slim] 1 each MC AD Folic Acid 1 mg PO BID Atorvastatin Calcium [Lipitor] 80 mg PO HS DULoxetine [Cymbalta] 90 mg PO HS EPINEPHrine [Epipen] 0.3 mg IM ONCE PRN PRN Reason: Allergic Reaction Glucagon,Human Recombinant [Glucagon Emergency Kit] 1 mg IJ ONCE PRN PRN Reason: LOW BLOOD SUGAR Multivitamin [Daily Multiple Vitamin] 1 tab PO HS Lidocaine Patch [Lidoderm 5% patch] 1 patch TP DAILY PRN PRN Reason: Pain Magnesium Oxide [Magnesium] 800 mg PO QAM #0 Acetaminophen/Butalbital/Caffe [Fioricet] 1 each PO Q4HR PRN #30 tablet PRN Reason: Headache Magnesium Oxide [Magnesium] 400 mg PO QPM Acyclovir [Zovirax] 400 mg PO BID hydroCHLOROthiazide [Hydrochlorothiazide] 25 mg PO DAILY Lisinopril [Zestril] 40 mg PO DAILY Discontinued Amlodipine Besylate 2.5 mg PO DAILY Home Medications: Subcutaneous Insulin Pump [T:Slim] 1 each MC AD 05/28/17 [History] Folic Acid 1 mg PO BID 01/14/19 [History] Atorvastatin Calcium [Lipitor] 80 mg PO HS 01/15/19 [History] DULoxetine [Cymbalta] 90 mg PO HS 01/15/19 [History] EPINEPHrine [Epipen] 0.3 mg IM ONCE PRN 01/15/19 [History] Glucagon,Human Recombinant [Glucagon Emergency Kit] 1 mg IJ ONCE PRN 01/15/19 [History] Multivitamin [Daily Multiple Vitamin] 1 tab PO HS 01/15/19 [History] Lidocaine Patch [Lidoderm 5% patch] 1 patch TP DAILY PRN 02/23/19 [History] Magnesium Oxide [Magnesium] 800 mg PO QAM #0 03/18/19 [History] Acetaminophen/Butalbital/Caffe [Fioricet] 1 each PO Q4HR PRN #30 tablet 03/20/19 [Rx] Acyclovir [Zovirax] 400 mg PO BID 03/20/19 [History] Lisinopril [Zestril] 40 mg PO DAILY 03/20/19 [History] Magnesium Oxide [Magnesium] 400 mg PO QPM 03/20/19 [History] hydroCHLOROthiazide [Hydrochlorothiazide] 25 mg PO DAILY 03/20/19 [History] Amlodipine Besylate 10 mg PO DAILY #30 tablet 04/05/19 [Rx] Metoprolol [Lopressor] 25 mg PO BID #60 tablet 04/05/19 [Rx] Allergies/Adverse Reactions: Allergy/AdvReac Type Severity Reaction Status Date / Time desflurane AdvReac Severe Agitated Verified 03/18/19 23:06 Halothane AdvReac Severe Agitated Verified 03/18/19 23:06 isoflurane AdvReac Severe Agitated Verified 03/18/19 23:06 Sevoflurane AdvReac Severe Agitated Verified 03/18/19 23:06 Date of admission: 04/05/19 09:35 Primary care physician: [facility] Consults: 04/04/19 00:04 Consult to Physical Therapy [CONS] Routine Comment: Evaluate, develop and implement POC Reason for Consult: Frequent falls, possible stroke Does patient have active BEDREST order?: No Is patient medically & hemodynamically stable?: Yes Patient assessed for mobility or mobilized this visit?: No 04/04/19 03:47 Consult to Neurology [CONS] Routine Consulting Provider: Neurology [facility] Reason for Consult: Confusion, frequent falls at home. Patient also has chronic headache. Call Completed: No - Constitutional Vitals: Temp Pulse Resp BP Pulse Ox 98.6 F 69 17 150/82 97 04/05/19 11:11 04/05/19 11:11 04/05/19 11:11 04/05/19 11:11 04/05/19 11:11 General appearance: Present: cooperative, A&O X 3, pleasant, no acute distress, answers questions appropriately Exam: Gen: Alert, awake, Oriented to time,place and person Chest: Diminished breath sounds B/L, No wheezing, No crackles, No rales Heart: S1S2+ RRR No murmurs Abd: Soft, NT, BS +, No organomegaly Ext: No edema, pulses are palpable, No calf tenderness Neuro : No acute focal neuro deficits noticed Skin: No rash. - Patient Status Disposition: Home, Self-Care Condition: Good Overall status at discharge: patient is back to baseline - Discharge Instructions Follow Up With: DAMARISPCP [Primary Care Provider] - 04/12/19 2:00 pm - Diet and Activity Activity: increase activity as tolerated Diet: low salt diet
--- NOTE | 2019-04-05 13:36 | Electrocardiograph Report ---
RamilaTriond Test Date: 2019-04-03 Pat Name: Matthew Reece Department: EXAM4 Room: 3B12 Gender: M Monologist: : [id number] Requested By: Marcus Nguyen Order Number: [id number] Reading MD: Main Bass Measurements Intervals [place] Rate: 102 P: 7 WI: 166 QRS: 255 QRSD: 100 T: 33 QT: 349 QTc: 455 Interpretive Statements Sinus tachycardia Ventricular premature complex LAD, consider left anterior fascicular block Abnormal R-wave progression, late transition Electronically Signed On 04-05-2019 13:35:22 EDT by Main Bass
[2019-04-05] MEDS ORDERED: *HR* Heparin 5,000 UNIT/ML VIAL SQ SCH (18:00)
== END 2019-04-05 15:33 | disposition home or self-care (01) | DRG 948 ==
LOC: 3BNU 20:11 → EMEROOARM 20:11 → SUATTDRO 22:29 → 3BNU 04-04 00:14
PROVIDERS: ADMIT Family Medicine; ATTEND Family Medicine

== ENCOUNTER 2020-03-30 01:02 | Inpatient (IN) ==
[2020-03-30 01:34] LABS: Basophils # 0.1 K/mcL (0.0-0.2); Basophils % 0.7 %; Eosinophils # 0.3 K/mcL (0.0-0.6); Eosinophils % 2.8 %; Hematocrit 36.2 % (37.5-50.1); Hemoglobin 12.2 g/dL (12.9-16.9); Immature Granulocytes % 0.4 % (0-4); Lymphocytes # 3.7 K/mcL (0.6-4.6); Mean Corpuscular HGB Conc 33.7 g/dL (31.6-35.5); Mean Corpuscular Hemoglobin 27.3 pg (28.0-33.3); Mean Platelet Volume 9.3 fL (9.4-12.4); Monocytes # 0.9 K/mcL (0.0-1.3); Monocytes % 7.8 %; Neutrophils # 6.1 K/mcL (1.6-8.9); Platelet Count 412 K/mcL (140-400); Red Blood Count 4.47 M/mcL (4.19-5.50); Segmented Neutrophils % 55.3 %; White Blood Count 11.1 K/mcL (4.3-11.1)
[2020-03-30 01:35] LABS: INR 0.9; Prothrombin Time 9.9 Seconds (9.4-12.1)
[2020-03-30] MEDS ORDERED: Aspirin 325 MG TABLET PO ONE (01:35)
[2020-03-30 01:38] LABS: Activated Partial Thrombo Time 23.8 Seconds (26.0-36.0)
[2020-03-30] MEDS ORDERED: Aspirin 81 MG TAB.CHEW ONE (01:41)
[2020-03-30] MEDS ORDERED: *HR* Heparin 5,000 UNIT/ML VIAL ONE (01:41)
[2020-03-30] MEDS ORDERED: *HR* Ticagrelor 90 MG TABLET ONE ×2 (01:41→02:50)
[2020-03-30] MEDS ORDERED: 0.9 % Sodium Chloride 1,000 ML ONE (01:42)
[2020-03-30] MEDS ORDERED: *HR* Heparin 5,000 UNIT/ML VIAL IVP ONE (01:43)
[2020-03-30] MEDS: *HR* Heparin 5,000 UNIT/ML VIAL IVP ONE ×2 (01:46→01:47)
[2020-03-30 01:56] LABS: Troponin I < 0.03 ng/mL (< 0.04)
[2020-03-30 01:58] LABS: Alanine Aminotransferase 13 Units/L (7-52); Albumin 4.2 g/dL (3.5-5.7); Albumin/Globulin Ratio 1.5 (1.1-2.2); Alkaline Phosphatase 142 Units/L (34-104); Aspartate Amino Transferase 17 Units/L (13-39); BUN/Creatinine Ratio 16 (6-26); Bilirubin,Direct 0.1 mg/dL (0.0-0.2); Bilirubin,Indirect 0.3 mg/dL (0.0-1.0); Bilirubin,Total 0.4 mg/dL (0.3-1.0); Blood Urea Nitrogen 52 mg/dL (8-23); Calcium 10.3 mg/dL (8.6-10.3); Carbon Dioxide 23 mEq/L (23-29); Chloride 99 mEq/L (98-107); Globulin 2.8 g/dL (2.4-3.5); Glucose 136 mg/dL (70-105); Osmolality,Calculated 296 (280-300); Potassium 4.3 mEq/L (3.5-5.1); Sodium 135 mEq/L (136-145); eGFR For African Americans 24 (> 60); eGFR For Non-African Americans 20 (> 60)
[2020-03-30] MEDS ORDERED: 0.9 % Sodium Chloride 2,000 ML ONE (02:09)
[2020-03-30] MEDS ORDERED: Heparin 1,000 UNITS/500 mL 500 ML ONE (02:09)
[2020-03-30] MEDS ORDERED: *HR* Heparin 10,000 UNIT/10 ML VIAL ONE ×2 (02:09→03:03)
[2020-03-30] MEDS ORDERED: ISOVUE-370 200 ML INFUS..BTL ONE (02:10)
[2020-03-30] MEDS ORDERED: Nitroglycerin 1,000 MCG/10 ML VIAL IV ONE (02:10)
[2020-03-30] MEDS ORDERED: *HR* FentaNYL (PF) 100 MCG/2 ML VIAL ONE (02:15)
[2020-03-30] MEDS ORDERED: *HR* Midazolam HCl 2 MG/2 ML VIAL ONE (02:15)
[2020-03-30 04:10] LABS: Basophils # 0.1 K/mcL (0.0-0.2); Basophils % 0.6 %; Eosinophils # 0.4 K/mcL (0.0-0.6); Eosinophils % 2.5 %; Hematocrit 34.8 % (37.5-50.1); Hemoglobin 11.8 g/dL (12.9-16.9); Immature Granulocytes % 0.9 % (0-4); Lymphocytes # 2.7 K/mcL (0.6-4.6); Lymphocytes % 19.4 %; Mean Corpuscular HGB Conc 33.9 g/dL (31.6-35.5); Mean Corpuscular Volume 82.5 fL (83.0-100.0); Mean Platelet Volume 9.5 fL (9.4-12.4); Monocytes # 0.8 K/mcL (0.0-1.3); Neutrophils # 9.9 K/mcL (1.6-8.9); Platelet Count 336 K/mcL (140-400); Red Blood Count 4.22 M/mcL (4.19-5.50); Red Cell Distribution Width 12.1 % (11.5-14.5); Segmented Neutrophils % 70.6 %
[2020-03-30 04:31] LABS: Calcium 9.7 mg/dL (8.6-10.3); Chol/HDL Ratio 3.6 (0-4.9); Potassium 4.3 mEq/L (3.5-5.1)
[2020-03-30] MEDS ORDERED: D5% in Water 1,000 ML IVC PRN ×2 (05:11→08:10)
[2020-03-30] MEDS: 0.9 % Sodium Chloride 1,000 ML IVC SCH ×2 (05:51→15:56)
[2020-03-30] MEDS: *HR* Heparin 5,000 UNIT/ML VIAL SQ SCH ×2 (05:51→17:05)
[2020-03-30] MEDS ORDERED: Perflutren Lipid Microsphere 1.3 ML in 0.9 % Sodium Chloride 8.7 ML IVP ONE (07:29)
[2020-03-30] MEDS ORDERED: *HR* Dextrose 50 % in Water (Vial) 50 ML VIAL IVP PRN (08:10)
[2020-03-30] MEDS ORDERED: Dextrose Gel 15 GM/37.5 ML TUBE PO PRN ×2 (08:10)
[2020-03-30] MEDS: *HR* Ticagrelor 90 MG TABLET PO SCH ×2 (08:34→19:56)
[2020-03-30] MEDS: Aspirin 81 MG TAB.CHEW PO SCH (08:34)
[2020-03-30] MEDS ORDERED: Aspirin 81 MG TAB.CHEW PO SCH (09:00)
[2020-03-30 09:51] LABS: Estimated Average Glucose 278 mg/dl
[2020-03-30] MEDS ORDERED: Insulin LISPRO 300 UNITS/3 ML VIAL SQ SCH ×2 (11:30→21:00)
[2020-03-30] MEDS ORDERED: Acyclovir 200 MG CAPSULE PO SCH (12:45)
[2020-03-30] MEDS: Folic Acid 1 MG TABLET PO SCH ×2 (14:19→19:55)
[2020-03-30] MEDS: Cholecalciferol (D-3) 1,000 UNIT (25MCG) TABLET PO SCH (14:20)
[2020-03-30] MEDS: lisinopriL 10 MG TABLET PO SCH (14:20)
[2020-03-30] MEDS: Vitamin B Complex/Vit C/Vit E 1 EACH TABLET PO SCH (14:20)
[2020-03-30] MEDS: Insulin LISPRO 300 UNITS/3 ML VIAL SQ SCH (15:43)
[2020-03-30] MEDS: hydrALAZINE 25 MG TABLET PO SCH (17:05)
[2020-03-30] MEDS: Magnesium Oxide 400 MG TABLET PO SCH (17:05)
[2020-03-30] MEDS: Multivit/Ca/Min/Fe/FA 1 TAB TABLET PO SCH (19:55)
[2020-03-30] MEDS ORDERED: NON-FORMULARY MEDICATION 1 EACH EACH (Atorvastatin Calcium [Lipitor] 40 MG) PO SCH (21:00)
[2020-03-30] MEDS ORDERED: Insulin DETEMIR 100 UNIT/ML X5UNITS SQ SCH (21:00)
[2020-03-31] MEDS: hydrALAZINE 25 MG TABLET PO SCH ×3 (00:01→16:29)
[2020-03-31] MEDS: Acetaminophen 325 MG TABLET PO PRN ×2 (00:01→19:25)
[2020-03-31] MEDS: hydrOXYzine pamoate 25 MG CAPSULE PO PRN ×2 (02:15→20:45)
[2020-03-31 04:39] LABS: Basophils % 0.4 %; Eosinophils # 0.2 K/mcL (0.0-0.6); Eosinophils % 2.3 %; Hematocrit 31.6 % (37.5-50.1); Hemoglobin 10.3 g/dL (12.9-16.9); Immature Granulocytes % 0.5 % (0-4); Lymphocytes # 2.3 K/mcL (0.6-4.6); Lymphocytes % 24.9 %; Mean Corpuscular HGB Conc 32.6 g/dL (31.6-35.5); Mean Corpuscular Hemoglobin 27.2 pg (28.0-33.3); Mean Corpuscular Volume 83.4 fL (83.0-100.0); Mean Platelet Volume 9.9 fL (9.4-12.4); Monocytes # 0.7 K/mcL (0.0-1.3); Monocytes % 7.2 %; Platelet Count 343 K/mcL (140-400); Red Blood Count 3.79 M/mcL (4.19-5.50); Red Cell Distribution Width 12.4 % (11.5-14.5); Segmented Neutrophils % 64.7 %; White Blood Count 9.2 K/mcL (4.3-11.1)
[2020-03-31 04:59] LABS: Calcium 8.2 mg/dL (8.6-10.3); Magnesium 2.2 mg/dL (1.6-2.6); Potassium 4.8 mEq/L (3.5-5.1)
[2020-03-31 05:02] LABS: Troponin I 0.18 ng/mL (< 0.04)
[2020-03-31] MEDS: 0.9 % Sodium Chloride 1,000 ML IVC SCH ×3 (05:14→18:49)
[2020-03-31] MEDS: *HR* Heparin 5,000 UNIT/ML VIAL SQ SCH ×2 (06:16→16:30)
[2020-03-31] MEDS: *HR* Ticagrelor 90 MG TABLET PO SCH ×2 (08:41→20:45)
[2020-03-31] MEDS: amLODIPine 5 MG TABLET PO SCH (08:41)
[2020-03-31] MEDS: Aspirin 81 MG TAB.CHEW PO SCH (08:42)
[2020-03-31] MEDS: Vitamin B Complex/Vit C/Vit E 1 EACH TABLET PO SCH (08:42)
[2020-03-31] MEDS: Folic Acid 1 MG TABLET PO SCH ×2 (08:42→20:44)
[2020-03-31] MEDS: Cholecalciferol (D-3) 1,000 UNIT (25MCG) TABLET PO SCH (08:42)
[2020-03-31] MEDS: lisinopriL 10 MG TABLET PO SCH (08:42)
[2020-03-31] MEDS: Magnesium Oxide 400 MG TABLET PO SCH ×2 (08:43→16:29)
[2020-03-31] MEDS: Insulin LISPRO 300 UNITS/3 ML VIAL SQ SCH ×4 (08:49→18:49)
[2020-03-31] MEDS ORDERED: Insulin LISPRO 300 UNITS/3 ML VIAL SQ SCH (12:05)
[2020-03-31] MEDS: Multivit/Ca/Min/Fe/FA 1 TAB TABLET PO SCH (20:44)
[2020-03-31] MEDS ORDERED: Insulin DETEMIR 100 UNIT/ML X5UNITS SQ SCH (21:00)
[2020-03-31] MEDS ORDERED: Acyclovir 200 MG CAPSULE PO SCH (21:00)
[2020-04-01] MEDS: hydrALAZINE 25 MG TABLET PO SCH ×2 (00:08→07:14)
[2020-04-01] MEDS ORDERED: Melatonin 3 MG TABLET PO ONE (02:01)
[2020-04-01] MEDS ORDERED: Bismuth Subsalicylate 120 ML ORAL SUSPENSION PO ONE (03:50)
[2020-04-01 05:10] LABS: Calcium 8.5 mg/dL (8.6-10.3); Potassium 4.6 mEq/L (3.5-5.1)
[2020-04-01] MEDS: *HR* Heparin 5,000 UNIT/ML VIAL SQ SCH (05:24)
[2020-04-01] MEDS: Folic Acid 1 MG TABLET PO SCH (07:14)
[2020-04-01] MEDS: *HR* Ticagrelor 90 MG TABLET PO SCH (07:14)
[2020-04-01] MEDS: Aspirin 81 MG TAB.CHEW PO SCH (07:14)
[2020-04-01] MEDS: Insulin LISPRO 300 UNITS/3 ML VIAL SQ SCH ×4 (07:15→11:49)
[2020-04-01] MEDS: amLODIPine 5 MG TABLET PO SCH (07:15)
[2020-04-01] MEDS: hydrOXYzine pamoate 25 MG CAPSULE PO PRN (07:15)
[2020-04-01] MEDS: Magnesium Oxide 400 MG TABLET PO SCH (07:15)
[2020-04-01] MEDS: lisinopriL 10 MG TABLET PO SCH (07:15)
[2020-04-01] MEDS: Vitamin B Complex/Vit C/Vit E 1 EACH TABLET PO SCH (07:15)
[2020-04-01] MEDS: Cholecalciferol (D-3) 1,000 UNIT (25MCG) TABLET PO SCH (07:15)
[2020-04-01 11:08] VITALS: BP 117/67
[2020-04-01 11:18] LABS: Basophils # 0.1 K/mcL (0.0-0.2); Basophils % 0.5 %; Eosinophils # 0.3 K/mcL (0.0-0.6); Eosinophils % 2.5 %; Hematocrit 31.7 % (37.5-50.1); Hemoglobin 10.1 g/dL (12.9-16.9); Immature Granulocytes % 0.6 % (0-4); Lymphocytes # 1.5 K/mcL (0.6-4.6); Lymphocytes % 14.8 %; Mean Corpuscular HGB Conc 31.9 g/dL (31.6-35.5); Mean Corpuscular Hemoglobin 27.2 pg (28.0-33.3); Mean Corpuscular Volume 85.2 fL (83.0-100.0); Mean Platelet Volume 9.7 fL (9.4-12.4); Monocytes # 0.8 K/mcL (0.0-1.3); Monocytes % 7.5 %; Neutrophils # 7.5 K/mcL (1.6-8.9); Platelet Count 351 K/mcL (140-400); Red Blood Count 3.72 M/mcL (4.19-5.50); Segmented Neutrophils % 74.1 %; White Blood Count 10.1 K/mcL (4.3-11.1)
== END 2020-04-01 14:57 | disposition home or self-care (01) | DRG 247 ==
LOC: EMEROOARM 01:02 → ICNU 02:12 → 3BNU 03-31 15:16
PROVIDERS: ADMIT Internal Medicine; ATTEND Internal Medicine

== ENCOUNTER 2020-04-02 21:52 | Inpatient (IN) ==
[2020-04-02 22:17] LABS: Basophils % 0.5 %; Eosinophils # 0.3 K/mcL (0.0-0.6); Eosinophils % 3.3 %; Hematocrit 31.3 % (37.5-50.1); Hemoglobin 9.8 g/dL (12.9-16.9); Immature Granulocytes % 0.5 % (0-4); Lymphocytes # 1.4 K/mcL (0.6-4.6); Lymphocytes % 17.9 %; Mean Corpuscular HGB Conc 31.3 g/dL (31.6-35.5); Mean Corpuscular Hemoglobin 27.1 pg (28.0-33.3); Mean Corpuscular Volume 86.7 fL (83.0-100.0); Mean Platelet Volume 10.1 fL (9.4-12.4); Monocytes # 0.6 K/mcL (0.0-1.3); Monocytes % 8.5 %; Neutrophils # 5.2 K/mcL (1.6-8.9); Platelet Count 293 K/mcL (140-400); Red Blood Count 3.61 M/mcL (4.19-5.50); Red Cell Distribution Width 12.8 % (11.5-14.5); Segmented Neutrophils % 69.3 %; White Blood Count 7.6 K/mcL (4.3-11.1)
[2020-04-02 22:19] LABS: INR 0.9; Prothrombin Time 10.5 Seconds (9.4-12.1)
[2020-04-02] MEDS ORDERED: Aspirin 81 MG TAB.CHEW PO ONE (22:25)
[2020-04-02] MEDS: Nitroglycerin 0.4 MG TAB.SUBL SL PRN ×3 (22:38→23:06)
[2020-04-02 22:42] LABS: Albumin 3.5 g/dL (3.5-5.7); Albumin/Globulin Ratio 1.5 (1.1-2.2); Bilirubin,Total 0.4 mg/dL (0.3-1.0); Calcium 8.7 mg/dL (8.6-10.3); Globulin 2.3 g/dL (2.4-3.5); Potassium 4.7 mEq/L (3.5-5.1); Total Protein 5.8 g/dL (6.4-8.9); Troponin I 0.1 ng/mL (< 0.04)
[2020-04-02] MEDS ORDERED: 0.9 % Sodium Chloride 1,000 ML IVC ONE (22:43)
[2020-04-02 23:02] LABS: VBG HCO3 22 mEq/L (21-27); VBG PCO2 33 mmHg (41-51); VBG PH 7.44 pH Units (7.32-7.42); VBG PO2 168 mmHg (25-50)
[2020-04-02] MEDS ORDERED: Naloxone 0.4 MG/ML INJ IVP PRN (23:04)
[2020-04-03] MEDS ORDERED: Insulin LISPRO 300 UNITS/3 ML VIAL SQ ONE ×2 (00:01→03:34)
[2020-04-03] MEDS ORDERED: EPINEPHrine 1 MG/ML VIAL IM PRN (00:53)
[2020-04-03] MEDS ORDERED: *HR* Dextrose 50 % in Water (Vial) 50 ML VIAL IVP PRN (00:56)
[2020-04-03] MEDS ORDERED: D5% in Water 1,000 ML IVC PRN (00:56)
[2020-04-03] MEDS ORDERED: Dextrose Gel 15 GM/37.5 ML TUBE PO PRN ×2 (00:56)
[2020-04-03] MEDS: Insulin DETEMIR 100 UNIT/ML X5UNITS SQ SCH ×2 (01:15→20:37)
[2020-04-03] MEDS: hydrALAZINE 25 MG TABLET PO SCH ×5 (01:26→23:18)
[2020-04-03 02:49] LABS: Basophils % 0.4 %; Eosinophils # 0.2 K/mcL (0.0-0.6); Eosinophils % 3.1 %; Hemoglobin 9.9 g/dL (12.9-16.9); Immature Granulocytes % 0.6 % (0-4); Lymphocytes # 1.3 K/mcL (0.6-4.6); Lymphocytes % 19.3 %; Mean Corpuscular HGB Conc 30.9 g/dL (31.6-35.5); Mean Corpuscular Hemoglobin 27.1 pg (28.0-33.3); Mean Corpuscular Volume 87.7 fL (83.0-100.0); Mean Platelet Volume 9.8 fL (9.4-12.4); Monocytes # 0.5 K/mcL (0.0-1.3); Monocytes % 6.8 %; Neutrophils # 4.7 K/mcL (1.6-8.9); Platelet Count 250 K/mcL (140-400); Red Blood Count 3.65 M/mcL (4.19-5.50); Red Cell Distribution Width 12.9 % (11.5-14.5); Segmented Neutrophils % 69.8 %; White Blood Count 6.8 K/mcL (4.3-11.1)
[2020-04-03 03:29] LABS: Calcium 8.3 mg/dL (8.6-10.3); Potassium 4.5 mEq/L (3.5-5.1)
[2020-04-03] MEDS ORDERED: Insulin Human Regular 10 UNIT in 0.9 % Sodium Chloride 10 ML IV ONE (03:34)
[2020-04-03] MEDS ORDERED: *HR* Heparin 5,000 UNIT/ML VIAL SQ SCH (06:00)
[2020-04-03] MEDS: amLODIPine 5 MG TABLET PO SCH (07:44)
[2020-04-03] MEDS: Magnesium Oxide 400 MG TABLET PO SCH (07:44)
[2020-04-03] MEDS: Aspirin 81 MG TAB.CHEW PO SCH (07:44)
[2020-04-03] MEDS: Cholecalciferol (D-3) 1,000 UNIT (25MCG) TABLET PO SCH (07:44)
[2020-04-03] MEDS: lisinopriL 10 MG TABLET PO SCH (07:44)
[2020-04-03] MEDS: Folic Acid 1 MG TABLET PO SCH ×2 (07:44→20:34)
[2020-04-03] MEDS: *HR* Ticagrelor 90 MG TABLET PO SCH ×2 (07:44→20:34)
[2020-04-03] MEDS: Insulin LISPRO 300 UNITS/3 ML VIAL SQ SCH ×5 (07:45→16:20)
[2020-04-03] MEDS ORDERED: Acyclovir 200 MG CAPSULE PO SCH (09:00)
[2020-04-03] MEDS: 0.9 % Sodium Chloride 1,000 ML IVC SCH ×2 (10:14→20:33)
[2020-04-03] MEDS ORDERED: Acyclovir 200 MG CAPSULE PO PRN (15:47)
[2020-04-03] MEDS: carvediloL 6.25 MG TABLET PO SCH (16:19)
[2020-04-03] MEDS ORDERED: Acetaminophen 325 MG TABLET PO PRN (16:25)
[2020-04-03] MEDS: *HR* Heparin 5,000 UNIT/ML VIAL SQ SCH (17:16)
[2020-04-03] MEDS ORDERED: Magnesium Oxide 400 MG TABLET PO SCH (18:00)
[2020-04-03] MEDS: Gabapentin 100 MG CAPSULE PO SCH (19:13)
[2020-04-03] MEDS ORDERED: hydrOXYzine pamoate 25 MG CAPSULE PO SCH (21:00)
[2020-04-03] MEDS ORDERED: Insulin LISPRO 300 UNITS/3 ML VIAL SQ SCH (21:00)
[2020-04-03] MEDS ORDERED: Multivit/Ca/Min/Fe/FA 1 TAB TABLET PO SCH (21:00)
[2020-04-03] MEDS ORDERED: *HR* LORazepam 2 MG/ML VIAL IVP ONE (22:49)
[2020-04-03] MEDS ORDERED: Artificial Tears SOLN 15 ML BOTTLE BOTH EYES SCH (23:00)
[2020-04-04] MEDS: *HR* Heparin 5,000 UNIT/ML VIAL SQ SCH (05:11)
[2020-04-04] MEDS: hydrALAZINE 25 MG TABLET PO SCH (05:11)
[2020-04-04 05:57] LABS: Hematocrit 29.2 % (37.5-50.1); Hemoglobin 9.3 g/dL (12.9-16.9); Mean Corpuscular HGB Conc 31.8 g/dL (31.6-35.5); Mean Corpuscular Hemoglobin 27.6 pg (28.0-33.3); Mean Corpuscular Volume 86.6 fL (83.0-100.0); Mean Platelet Volume 9.8 fL (9.4-12.4); Platelet Count 249 K/mcL (140-400); Red Blood Count 3.37 M/mcL (4.19-5.50); Red Cell Distribution Width 12.9 % (11.5-14.5); White Blood Count 7.7 K/mcL (4.3-11.1)
[2020-04-04 06:18] LABS: Calcium 8.5 mg/dL (8.6-10.3); Potassium 4.4 mEq/L (3.5-5.1)
[2020-04-04 07:14] VITALS: BP 137/70
[2020-04-04] MEDS: Gabapentin 100 MG CAPSULE PO SCH (08:47)
[2020-04-04] MEDS: lisinopriL 10 MG TABLET PO SCH (08:47)
[2020-04-04] MEDS: Folic Acid 1 MG TABLET PO SCH (08:47)
[2020-04-04] MEDS: Aspirin 81 MG TAB.CHEW PO SCH (08:48)
[2020-04-04] MEDS: amLODIPine 5 MG TABLET PO SCH (08:48)
[2020-04-04] MEDS: Cholecalciferol (D-3) 1,000 UNIT (25MCG) TABLET PO SCH (08:48)
[2020-04-04] MEDS: Magnesium Oxide 400 MG TABLET PO SCH (08:48)
[2020-04-04] MEDS: carvediloL 6.25 MG TABLET PO SCH (08:48)
[2020-04-04] MEDS: Insulin LISPRO 300 UNITS/3 ML VIAL SQ SCH ×2 (08:49)
== END 2020-04-04 11:32 | disposition home or self-care (01) | DRG 281 ==
LOC: EMEROOARM 21:52 → 2ANU 21:52
PROVIDERS: ADMIT Family Medicine; ATTEND Family Medicine

== ENCOUNTER 2020-06-17 13:31 | Observation (INO) ==
[2020-06-17 13:54] LABS: Basophils % 0.6 %; Eosinophils # 0.2 K/mcL (0.0-0.6); Eosinophils % 3.3 %; Hematocrit 30.6 % (37.5-50.1); Hemoglobin 9.6 g/dL (12.9-16.9); Immature Granulocytes % 0.4 % (0-4); Lymphocytes # 1.1 K/mcL (0.6-4.6); Lymphocytes % 14.9 %; Mean Corpuscular HGB Conc 31.4 g/dL (31.6-35.5); Mean Corpuscular Hemoglobin 27.7 pg (28.0-33.3); Mean Corpuscular Volume 88.4 fL (83.0-100.0); Mean Platelet Volume 9.3 fL (9.4-12.4); Monocytes # 0.6 K/mcL (0.0-1.3); Monocytes % 7.8 %; Neutrophils # 5.2 K/mcL (1.6-8.9); Platelet Count 268 K/mcL (140-400); Red Blood Count 3.46 M/mcL (4.19-5.50); Red Cell Distribution Width 12.8 % (11.5-14.5); White Blood Count 7.1 K/mcL (4.3-11.1)
[2020-06-17 13:58] LABS: Prothrombin Time 11.3 Seconds (9.4-12.1)
[2020-06-17 14:00] LABS: Activated Partial Thrombo Time 32.5 Seconds (26.0-36.0)
[2020-06-17] MEDS: Nitroglycerin 0.4 MG TAB.SUBL SL PRN (14:08)
[2020-06-17 14:18] LABS: BUN/Creatinine Ratio 13 (6-26); Blood Urea Nitrogen 34 mg/dL (8-23); Calcium 8.6 mg/dL (8.6-10.3); Carbon Dioxide 24 mEq/L (23-29); Chloride 111 mEq/L (98-107); Glucose 113 mg/dL (70-105); Osmolality,Calculated 298 (280-300); Potassium 4.4 mEq/L (3.5-5.1); Sodium 140 mEq/L (136-145); Troponin I < 0.03 ng/mL (< 0.04); eGFR For African Americans 29 (> 60); eGFR For Non-African Americans 24 (> 60)
[2020-06-17] MEDS ORDERED: Naloxone 0.4 MG/ML INJ IVP PRN (15:34)
[2020-06-17] MEDS ORDERED: Acyclovir 200 MG CAPSULE PO PRN (15:35)
[2020-06-17] MEDS ORDERED: EPINEPHrine 1 MG/ML VIAL IM PRN (15:35)
[2020-06-17] MEDS ORDERED: Dextrose 4 GM Chewable Tablets PO PRN (15:35)
[2020-06-17] MEDS: [UNRECOGNIZED DRUG - SUPPLY] SQ SCH (16:30)
[2020-06-17] MEDS ORDERED: *HR* Heparin 5,000 UNIT/ML VIAL IVP PRN ×2 (17:37)
[2020-06-17] MEDS ORDERED: *HR* Heparin 5,000 UNIT/ML VIAL IVP ONE (17:37)
[2020-06-17] MEDS ORDERED: Heparin 25,000UNIT/250ML 1/2NS 25,000 UNIT/250 ML IV.SOLN IVC SCH (17:45)
[2020-06-17] MEDS: carvediloL 6.25 MG TABLET PO SCH (17:59)
[2020-06-17 19:10] LABS: Hematocrit 31.4 % (37.5-50.1); Hemoglobin 9.7 g/dL (12.9-16.9); Mean Corpuscular HGB Conc 30.9 g/dL (31.6-35.5); Mean Corpuscular Hemoglobin 27.5 pg (28.0-33.3); Mean Platelet Volume 9.1 fL (9.4-12.4); Platelet Count 239 K/mcL (140-400); Red Blood Count 3.53 M/mcL (4.19-5.50); Red Cell Distribution Width 12.7 % (11.5-14.5); White Blood Count 7.1 K/mcL (4.3-11.1)
[2020-06-17 19:12] LABS: Heparin anti-factor XA UFH < 0.04 IU/mL (0.30-0.70); Prothrombin Time 11.6 Seconds (9.4-12.1)
[2020-06-17] MEDS ORDERED: *HR* Dextrose 50 % in Water (Vial) 50 ML VIAL IVP ONE (20:20)
[2020-06-17] MEDS: Multivit/Ca/Min/Fe/FA 1 TAB TABLET PO SCH (20:29)
[2020-06-17] MEDS: Folic Acid 1 MG TABLET PO SCH (20:29)
[2020-06-17] MEDS: Artificial Tears SOLN 15 ML BOTTLE BOTH EYES SCH (20:29)
[2020-06-17] MEDS: *HR* Ticagrelor 90 MG TABLET PO SCH (20:30)
[2020-06-17] MEDS: Magnesium Oxide 400 MG TABLET PO SCH (20:30)
[2020-06-17] MEDS: lisinopriL 20 MG TABLET PO SCH (20:31)
[2020-06-18] MEDS: Nitroglycerin 0.4 MG TAB.SUBL SL PRN ×2 (00:55→01:00)
[2020-06-18 01:04] LABS: Basophils % 0.4 %; Eosinophils # 0.3 K/mcL (0.0-0.6); Hematocrit 30.3 % (37.5-50.1); Hemoglobin 9.3 g/dL (12.9-16.9); Immature Granulocytes % 0.2 % (0-4); Lymphocytes # 1.5 K/mcL (0.6-4.6); Lymphocytes % 19.1 %; Mean Corpuscular HGB Conc 30.7 g/dL (31.6-35.5); Mean Corpuscular Volume 88.1 fL (83.0-100.0); Mean Platelet Volume 9.2 fL (9.4-12.4); Monocytes # 0.7 K/mcL (0.0-1.3); Monocytes % 8.6 %; Neutrophils # 5.5 K/mcL (1.6-8.9); Platelet Count 237 K/mcL (140-400); Red Blood Count 3.44 M/mcL (4.19-5.50); Red Cell Distribution Width 12.8 % (11.5-14.5); Segmented Neutrophils % 67.7 %; White Blood Count 8.1 K/mcL (4.3-11.1)
[2020-06-18 01:22] LABS: Calcium 8.8 mg/dL (8.6-10.3)
[2020-06-18] MEDS: Cholecalciferol (D-3) 1,000 UNIT (25MCG) TABLET PO SCH (09:38)
[2020-06-18] MEDS: Vitamin B Complex/Vit C/Vit E 1 EACH TABLET PO SCH (09:38)
[2020-06-18] MEDS: Aspirin 81 MG TAB.CHEW PO SCH (09:38)
[2020-06-18] MEDS: *HR* Ticagrelor 90 MG TABLET PO SCH ×2 (09:38→20:28)
[2020-06-18] MEDS: Folic Acid 1 MG TABLET PO SCH ×2 (09:39→20:29)
[2020-06-18] MEDS: lisinopriL 20 MG TABLET PO SCH ×2 (09:40→20:28)
[2020-06-18] MEDS: Artificial Tears SOLN 15 ML BOTTLE BOTH EYES SCH ×3 (09:40→20:28)
[2020-06-18] MEDS: carvediloL 6.25 MG TABLET PO SCH ×2 (09:40→15:54)
[2020-06-18] MEDS: Magnesium Oxide 400 MG TABLET PO SCH ×4 (09:41→18:37)
[2020-06-18] MEDS ORDERED: carvediloL 6.25 MG TABLET PO ONE (10:07)
[2020-06-18] MEDS: Ranolazine 500 MG TAB.ER.12H PO SCH ×2 (11:33→20:29)
[2020-06-18] MEDS: Isosorbide MONOnitrate (24 HR) 60 MG TAB.ER.24H PO SCH ×2 (11:59→20:29)
[2020-06-18] MEDS ORDERED: Furosemide 20 MG TABLET PO SCH (15:35)
[2020-06-18] MEDS: [UNRECOGNIZED DRUG - SUPPLY] SQ SCH (15:54)
[2020-06-18] MEDS: Multivit/Ca/Min/Fe/FA 1 TAB TABLET PO SCH (20:29)
[2020-06-19] MEDS ORDERED: Melatonin 3 MG TABLET PO PRN (02:26)
[2020-06-19 05:15] LABS: Basophils % 0.2 %; Eosinophils # 0.3 K/mcL (0.0-0.6); Hematocrit 28.7 % (37.5-50.1); Immature Granulocytes % 0.4 % (0-4); Lymphocytes # 1.2 K/mcL (0.6-4.6); Mean Corpuscular HGB Conc 31.4 g/dL (31.6-35.5); Mean Corpuscular Hemoglobin 27.4 pg (28.0-33.3); Mean Corpuscular Volume 87.5 fL (83.0-100.0); Monocytes # 0.8 K/mcL (0.0-1.3); Neutrophils # 5.9 K/mcL (1.6-8.9); Platelet Count 228 K/mcL (140-400); Red Blood Count 3.28 M/mcL (4.19-5.50); Red Cell Distribution Width 12.6 % (11.5-14.5); Segmented Neutrophils % 71.4 %; White Blood Count 8.3 K/mcL (4.3-11.1)
[2020-06-19 05:35] LABS: Calcium 8.6 mg/dL (8.6-10.3); Magnesium 2.1 mg/dL (1.6-2.6); Phosphorous 3.7 mg/dL (2.7-4.5); Potassium 4.5 mEq/L (3.5-5.1)
[2020-06-19] MEDS: Ranolazine 500 MG TAB.ER.12H PO SCH (08:04)
[2020-06-19] MEDS: lisinopriL 20 MG TABLET PO SCH (08:04)
[2020-06-19] MEDS: Vitamin B Complex/Vit C/Vit E 1 EACH TABLET PO SCH (08:04)
[2020-06-19] MEDS: *HR* Ticagrelor 90 MG TABLET PO SCH (08:04)
[2020-06-19] MEDS: Isosorbide MONOnitrate (24 HR) 60 MG TAB.ER.24H PO SCH (08:04)
[2020-06-19] MEDS: carvediloL 6.25 MG TABLET PO SCH (08:04)
[2020-06-19] MEDS: Folic Acid 1 MG TABLET PO SCH (08:04)
[2020-06-19] MEDS: Cholecalciferol (D-3) 1,000 UNIT (25MCG) TABLET PO SCH (08:04)
[2020-06-19] MEDS: Aspirin 81 MG TAB.CHEW PO SCH (08:05)
[2020-06-19] MEDS: Artificial Tears SOLN 15 ML BOTTLE BOTH EYES SCH (08:05)
[2020-06-19] MEDS: Magnesium Oxide 400 MG TABLET PO SCH (08:07)
[2020-06-19 10:52] VITALS: BP 147/82
== END 2020-06-19 13:14 | disposition home or self-care (01) ==
LOC: 2NNU 13:31 → EMEROOARM 13:31 → SUATTDRO 15:41 → 2NNU 16:19
PROVIDERS: ADMIT Student in an Organized Health Care Education/Training Program; ATTEND Family Medicine

== ENCOUNTER 2020-09-08 16:24 | Inpatient (IN) ==
[2020-09-08 17:38] LABS: Bilirubin,Urine Negative (Negative); Blood,Urine Negative (Negative); Clarity,Urine Clear (Clear); Color,Urine Light-Yellow (Yellow); Glucose,Urine (UA) >=1000 mg/dL (Normal); Hyaline Casts,Urine Few per lpf (None Seen); Ketones,Urine Negative (Negative); Leukocyte Esterase,Urine Negative (Negative); Nitrite,Urine Negative (Negative); PH,Urine 6.5 pH Units (5.0-8.0); Protein,Urine 200 mg/dL (Neg-Trace); RBC,Urine 0-3 per hpf (0-3); Specific Gravity,Urine 1.016 (1.010-1.025); Urobilinogen,Urine Normal (Normal); WBC,Urine 0-3 per hpf (0-3)
[2020-09-08 17:40] LABS: INR 1.1; Prothrombin Time 12.4 Seconds (9.4-12.1)
[2020-09-08 17:43] LABS: Activated Partial Thrombo Time 23.7 Seconds (26.0-36.0)
[2020-09-08 17:45] LABS: Amphetamine Screen,Urine Negative ng/mL (Cutoff=1000); Barbiturate Screen,Urine Negative ng/mL (Cutoff=200); Benzodiazepines Screen,Urine Negative ng/mL (Cutoff=200); Cannabinoid Screen,Urine Negative ng/mL (Cutoff = 50); Cocaine Screen,Urine Negative ng/mL (Cutoff= 300); Opiate Screen,Urine Negative ng/mL (Cutoff=300); Phencyclidine Screen,Urine Negative ng/mL (Cutoff=25)
[2020-09-08 17:54] LABS: Acetaminophen 10 mcg/mL (10-20); Alanine Aminotransferase 11 Units/L (7-52); Albumin/Globulin Ratio 1.6 (1.1-2.2); Alkaline Phosphatase 125 Units/L (34-104); Aspartate Amino Transferase 15 Units/L (13-39); BUN/Creatinine Ratio 14 (6-26); Bilirubin,Direct 0.1 mg/dL (0.0-0.2); Bilirubin,Indirect 0.3 mg/dL (0.0-1.0); Bilirubin,Total 0.4 mg/dL (0.3-1.0); Blood Urea Nitrogen 52 mg/dL (8-23); Calcium 9.4 mg/dL (8.6-10.3); Carbon Dioxide 23 mEq/L (23-29); Chloride 104 mEq/L (98-107); Cholesterol 121 mg/dL (< 200); Ethanol < 10 mg/dL (Less than 10); Globulin 2.5 g/dL (2.4-3.5); Glucose 198 mg/dL (70-105); HDL Cholesterol 40 mg/dL (40-59); LDL Cholesterol,Calculated 60 mg/dL (< 100); Osmolality,Calculated 300 (280-300); Potassium 4.5 mEq/L (3.5-5.1); Salicylate < 2.5 mg/dL (15.0-30.0); Sodium 135 mEq/L (136-145); Total Protein 6.5 g/dL (6.4-8.9); Triglycerides 106 mg/dL (< 150); Troponin I < 0.03 ng/mL (< 0.04); eGFR For African Americans 21 (> 60); eGFR For Non-African Americans 17 (> 60)
[2020-09-08 17:55] LABS: Basophils % 0.3 %; Eosinophils # 0.1 K/mcL (0.0-0.6); Hematocrit 33.9 % (37.5-50.1); Immature Granulocytes % 0.4 % (0-4); Lymphocytes # 0.9 K/mcL (0.6-4.6); Lymphocytes % 8.8 %; Mean Corpuscular HGB Conc 32.4 g/dL (31.6-35.5); Mean Corpuscular Volume 83.3 fL (83.0-100.0); Mean Platelet Volume 9.1 fL (9.4-12.4); Monocytes # 0.6 K/mcL (0.0-1.3); Monocytes % 5.6 %; Neutrophils # 8.2 K/mcL (1.6-8.9); Platelet Count 305 K/mcL (140-400); Red Blood Count 4.07 M/mcL (4.19-5.50); Red Cell Distribution Width 12.8 % (11.5-14.5); Segmented Neutrophils % 83.9 %; White Blood Count 9.8 K/mcL (4.3-11.1)
[2020-09-08 18:02] LABS: Estimated Average Glucose 246 mg/dl
[2020-09-08] MEDS ORDERED: D5% in Water 1,000 ML IVC PRN (20:02)
[2020-09-08] MEDS ORDERED: Dextrose Gel 15 GM/37.5 ML TUBE PO PRN ×2 (20:02)
[2020-09-08] MEDS ORDERED: *HR* Dextrose 50 % in Water (Vial) 50 ML VIAL IVP PRN (20:02)
[2020-09-08] MEDS ORDERED: Naloxone 0.4 MG/ML INJ IVP PRN (20:03)
[2020-09-08] MEDS ORDERED: *HR* HYDROcodone/Acet 5/325 mg TABLET PO PRN (20:03)
[2020-09-08] MEDS: *HR* Heparin 5,000 UNIT/ML VIAL SQ SCH (22:16)
[2020-09-08] MEDS: Famotidine 20 MG TABLET PO SCH (22:17)
[2020-09-09 01:36] LABS: Hematocrit 33.5 % (37.5-50.1); Hemoglobin 10.6 g/dL (12.9-16.9); Mean Corpuscular HGB Conc 31.6 g/dL (31.6-35.5); Mean Corpuscular Hemoglobin 26.8 pg (28.0-33.3); Mean Corpuscular Volume 84.8 fL (83.0-100.0); Mean Platelet Volume 9.3 fL (9.4-12.4); Platelet Count 311 K/mcL (140-400); Red Blood Count 3.95 M/mcL (4.19-5.50); Red Cell Distribution Width 12.8 % (11.5-14.5); White Blood Count 8.9 K/mcL (4.3-11.1)
[2020-09-09 01:51] LABS: % Iron Saturation 13 % (20-55); Iron 45 mcg/dL (65-175); Transferrin 243 mg/dL (203-362)
[2020-09-09 01:52] LABS: Calcium 8.5 mg/dL (8.6-10.3); Magnesium 2.3 mg/dL (1.6-2.6); Phosphorous 4.3 mg/dL (2.7-4.5); Potassium 4.2 mEq/L (3.5-5.1)
[2020-09-09] MEDS: Acetaminophen 325 MG TABLET PO PRN (03:06)
[2020-09-09] MEDS: *HR* Heparin 5,000 UNIT/ML VIAL SQ SCH ×3 (06:25→21:36)
[2020-09-09] MEDS ORDERED: Regadenoson 0.4 MG/5 ML SYRINGE IVP ONE (07:21)
[2020-09-09] MEDS: Aspirin Enteric Coated 81 MG Tablet PO SCH (09:08)
[2020-09-09] MEDS: Famotidine 20 MG TABLET PO SCH (09:08)
[2020-09-09] MEDS: amLODIPine 5 MG TABLET PO SCH (12:25)
[2020-09-09] MEDS: carvediloL 25 MG TABLET PO SCH ×2 (12:25→16:11)
[2020-09-09] MEDS ORDERED: Sodium Bicarbonate 75 MEQ in 0.45 % Sodium Chloride 1,000 ML IVC SCH (15:15)
[2020-09-09] MEDS: *HR* Ticagrelor 90 MG TABLET PO SCH (21:35)
[2020-09-10] MEDS: *HR* Heparin 5,000 UNIT/ML VIAL SQ SCH ×3 (06:09→22:22)
[2020-09-10 06:34] LABS: Hematocrit 31.6 % (37.5-50.1); Hemoglobin 10.1 g/dL (12.9-16.9); Mean Corpuscular Hemoglobin 27.2 pg (28.0-33.3); Mean Corpuscular Volume 85.2 fL (83.0-100.0); Mean Platelet Volume 9.4 fL (9.4-12.4); Platelet Count 292 K/mcL (140-400); Red Blood Count 3.71 M/mcL (4.19-5.50); Red Cell Distribution Width 12.9 % (11.5-14.5); White Blood Count 7.8 K/mcL (4.3-11.1)
[2020-09-10 06:52] LABS: Calcium 8.6 mg/dL (8.6-10.3); Potassium 3.9 mEq/L (3.5-5.1)
[2020-09-10] MEDS: amLODIPine 5 MG TABLET PO SCH (07:59)
[2020-09-10] MEDS: *HR* Ticagrelor 90 MG TABLET PO SCH ×2 (07:59→22:22)
[2020-09-10] MEDS: Aspirin Enteric Coated 81 MG Tablet PO SCH (07:59)
[2020-09-10] MEDS: carvediloL 25 MG TABLET PO SCH ×2 (07:59→16:40)
[2020-09-10] MEDS ORDERED: Famotidine 20 MG TABLET PO SCH (09:00)
[2020-09-10] MEDS: Acetaminophen 325 MG TABLET PO PRN (09:59)
[2020-09-10] MEDS ORDERED: Sodium Bicarbonate 75 MEQ in 0.45 % Sodium Chloride 1,000 ML IVC SCH (14:00)
[2020-09-10] MEDS: Ranolazine 500 MG TAB.ER.12H PO SCH (22:22)
[2020-09-10] MEDS: Subcutaneous Insulin Pump [T:Slim] SQ SCH (22:23)
[2020-09-11] MEDS: Nitroglycerin 0.4 MG TAB.SUBL SL PRN ×3 (01:38→04:29)
[2020-09-11] MEDS: *HR* Heparin 5,000 UNIT/ML VIAL SQ SCH ×3 (05:07→21:07)
[2020-09-11 06:28] LABS: Hematocrit 30.8 % (37.5-50.1); Hemoglobin 9.9 g/dL (12.9-16.9); Mean Corpuscular HGB Conc 32.1 g/dL (31.6-35.5); Mean Corpuscular Hemoglobin 27.6 pg (28.0-33.3); Mean Corpuscular Volume 85.8 fL (83.0-100.0); Mean Platelet Volume 9.2 fL (9.4-12.4); Platelet Count 280 K/mcL (140-400); Red Blood Count 3.59 M/mcL (4.19-5.50); Red Cell Distribution Width 12.6 % (11.5-14.5); White Blood Count 7.3 K/mcL (4.3-11.1)
[2020-09-11 06:29] LABS: Calcium 8.3 mg/dL (8.6-10.3); Potassium 3.5 mEq/L (3.5-5.1)
[2020-09-11] MEDS: carvediloL 25 MG TABLET PO SCH ×2 (08:17→16:10)
[2020-09-11] MEDS: Aspirin Enteric Coated 81 MG Tablet PO SCH (08:17)
[2020-09-11] MEDS: *HR* Ticagrelor 90 MG TABLET PO SCH ×2 (08:17→21:07)
[2020-09-11] MEDS: amLODIPine 5 MG TABLET PO SCH (08:17)
[2020-09-11] MEDS: Ranolazine 500 MG TAB.ER.12H PO SCH ×2 (08:17→21:07)
[2020-09-11] MEDS: Subcutaneous Insulin Pump [T:Slim] SQ SCH (16:13)
[2020-09-11] MEDS: FLUoxetine 20 MG CAPSULE PO SCH (17:41)
[2020-09-12] MEDS ORDERED: Melatonin 3 MG TABLET PO PRN (02:04)
[2020-09-12] MEDS: *HR* Heparin 5,000 UNIT/ML VIAL SQ SCH (06:10)
[2020-09-12 06:21] LABS: Basophils % 0.3 %; Eosinophils # 0.2 K/mcL (0.0-0.6); Eosinophils % 3.8 %; Hematocrit 29.4 % (37.5-50.1); Hemoglobin 9.6 g/dL (12.9-16.9); Immature Granulocytes % 0.2 % (0-4); Lymphocytes # 1.1 K/mcL (0.6-4.6); Lymphocytes % 18.2 %; Mean Corpuscular HGB Conc 32.7 g/dL (31.6-35.5); Mean Corpuscular Hemoglobin 27.7 pg (28.0-33.3); Mean Corpuscular Volume 84.7 fL (83.0-100.0); Monocytes # 0.6 K/mcL (0.0-1.3); Monocytes % 9.9 %; Platelet Count 226 K/mcL (140-400); Red Blood Count 3.47 M/mcL (4.19-5.50); Red Cell Distribution Width 12.7 % (11.5-14.5); Segmented Neutrophils % 67.6 %; White Blood Count 5.8 K/mcL (4.3-11.1)
[2020-09-12 06:42] LABS: Calcium 8.3 mg/dL (8.6-10.3); Potassium 4.3 mEq/L (3.5-5.1)
[2020-09-12] MEDS ORDERED: Isosorbide MONOnitrate (24 HR) 30 MG TAB.ER.24H PO SCH (09:00)
[2020-09-12] MEDS: FLUoxetine 20 MG CAPSULE PO SCH (09:11)
[2020-09-12] MEDS: *HR* Ticagrelor 90 MG TABLET PO SCH (09:11)
[2020-09-12] MEDS: Ranolazine 500 MG TAB.ER.12H PO SCH (09:11)
[2020-09-12] MEDS: Aspirin Enteric Coated 81 MG Tablet PO SCH (09:11)
[2020-09-12] MEDS: amLODIPine 5 MG TABLET PO SCH (09:11)
[2020-09-12] MEDS: carvediloL 25 MG TABLET PO SCH (09:11)
[2020-09-12 11:55] VITALS: BP 110/66
== END 2020-09-12 16:26 | disposition home or self-care (01) | DRG 313 ==
LOC: EMEROOARM 16:24 → 3BNU 16:24 → SUATTDRO 09-09 15:01
PROVIDERS: ADMIT Student in an Organized Health Care Education/Training Program; ATTEND Internal Medicine

== ENCOUNTER 2020-12-07 14:07 | Inpatient (IN) ==
[2020-12-07] MEDS ORDERED: Perflutren Lipid Microsphere 1.3 ML in 0.9 % Sodium Chloride 8.7 ML IVP PRN (17:44)
[2020-12-07] MEDS ORDERED: Ondansetron 4 MG/2 ML VIAL IVP PRN (17:49)
[2020-12-07] MEDS ORDERED: Naloxone 0.4 MG/ML INJ IVP PRN (17:49)
[2020-12-07 21:39] LABS: Bilirubin,Urine Negative (Negative); Blood,Urine Negative (Negative); Clarity,Urine Clear (Clear); Color,Urine Colorless (Yellow); Glucose,Urine (UA) 200 mg/dL (Normal); Ketones,Urine Negative (Negative); Leukocyte Esterase,Urine Negative (Negative); Mucus,Urine Few per lpf (None-Few); Nitrite,Urine Negative (Negative); PH,Urine 6.5 pH Units (5.0-8.0); Protein,Urine 200 mg/dL (Neg-Trace); RBC,Urine 0-3 per hpf (0-3); Specific Gravity,Urine 1.015 (1.010-1.025); Urobilinogen,Urine Normal (Normal); WBC,Urine 0-3 per hpf (0-3)
[2020-12-08] MEDS: Acetaminophen 325 MG TABLET PO PRN ×2 (00:10→14:53)
[2020-12-08 01:12] LABS: Basophils % 0.5 %; Eosinophils # 0.1 K/mcL (0.0-0.6); Eosinophils % 1.9 %; Hematocrit 24.8 % (37.5-50.1); Immature Granulocytes % 0.3 % (0-4); Lymphocytes # 0.5 K/mcL (0.6-4.6); Lymphocytes % 7.5 %; Mean Corpuscular HGB Conc 32.3 g/dL (31.6-35.5); Mean Corpuscular Hemoglobin 30.5 pg (28.0-33.3); Mean Corpuscular Volume 94.7 fL (83.0-100.0); Mean Platelet Volume 9.1 fL (9.4-12.4); Monocytes # 0.7 K/mcL (0.0-1.3); Monocytes % 10.7 %; Neutrophils # 4.9 K/mcL (1.6-8.9); Platelet Count 239 K/mcL (140-400); Red Blood Count 2.62 M/mcL (4.19-5.50); Red Cell Distribution Width 13.1 % (11.5-14.5); Segmented Neutrophils % 79.1 %; White Blood Count 6.3 K/mcL (4.3-11.1)
[2020-12-08 01:33] LABS: Albumin 3.1 g/dL (3.5-5.7); Albumin/Globulin Ratio 1.6 (1.1-2.2); Bilirubin,Total 0.4 mg/dL (0.3-1.0); Calcium 8.1 mg/dL (8.6-10.3); Potassium 5.7 mEq/L (3.5-5.1); Total Protein 5.1 g/dL (6.4-8.9)
[2020-12-08] MEDS: Aspirin 81 MG TAB.CHEW PO SCH (07:46)
[2020-12-08] MEDS ORDERED: Furosemide 20 MG TABLET PO PRN (10:21)
[2020-12-08] MEDS: Acetaminophen/Butalbital/CaffeineTABLET PO PRN (15:31)
[2020-12-08] MEDS: carvediloL 25 MG TABLET PO SCH (16:38)
[2020-12-08] MEDS ORDERED: *HR* Dextrose 50 % in Water (Vial) 50 ML VIAL IVP PRN (19:53)
[2020-12-08] MEDS ORDERED: D5% in Water 1,000 ML IVC PRN (19:53)
[2020-12-08] MEDS ORDERED: Dextrose Gel 15 GM/37.5 ML TUBE PO PRN (19:53)
[2020-12-08] MEDS: Insulin LISPRO 300 UNITS/3 ML VIAL SUBQ SCH (20:13)
[2020-12-08] MEDS: *HR* Ticagrelor 90 MG TABLET PO SCH (20:14)
[2020-12-08] MEDS: hydrALAZINE 25 MG TABLET PO SCH (20:16)
[2020-12-08] MEDS: Folic Acid 1 MG TABLET PO SCH (20:16)
[2020-12-08] MEDS: Ranolazine 500 MG TAB.ER.12H PO SCH (20:16)
[2020-12-08] MEDS: Acyclovir 200 MG CAPSULE PO SCH (20:17)
[2020-12-08] MEDS ORDERED: NON-FORMULARY MEDICATION 1 EACH EACH (Memantine Hcl 10 MG Tablet) PO SCH (21:00)
[2020-12-09] MEDS: Insulin LISPRO 300 UNITS/3 ML VIAL SUBQ SCH ×4 (06:52→19:22)
[2020-12-09] MEDS: Ranolazine 500 MG TAB.ER.12H PO SCH ×2 (07:33→19:26)
[2020-12-09] MEDS: Aspirin 81 MG TAB.CHEW PO SCH (07:34)
[2020-12-09] MEDS: *HR* Ticagrelor 90 MG TABLET PO SCH ×2 (07:34→19:29)
[2020-12-09] MEDS: Folic Acid 1 MG TABLET PO SCH ×2 (07:34→19:29)
[2020-12-09] MEDS: Acyclovir 200 MG CAPSULE PO SCH ×2 (07:34→19:27)
[2020-12-09] MEDS: carvediloL 25 MG TABLET PO SCH ×2 (07:34→16:24)
[2020-12-09] MEDS: Isosorbide MONOnitrate (24 HR) 30 MG TAB.ER.24H PO SCH (07:35)
[2020-12-09] MEDS: amLODIPine 5 MG TABLET PO SCH (07:55)
[2020-12-09] MEDS ORDERED: amLODIPine 5 MG TABLET PO SCH (09:00)
[2020-12-09] MEDS: Acetaminophen/Butalbital/CaffeineTABLET PO PRN (11:47)
[2020-12-09] MEDS: lisinopriL 20 MG TABLET PO SCH (19:28)
[2020-12-09] MEDS: hydrALAZINE 25 MG TABLET PO SCH (19:29)
[2020-12-10] MEDS: Dextrose Gel 15 GM/37.5 ML TUBE PO PRN ×2 (05:23→05:35)
[2020-12-10] MEDS: Insulin LISPRO 300 UNITS/3 ML VIAL SUBQ SCH ×4 (06:53→20:30)
[2020-12-10] MEDS ORDERED: 0.9 % Sodium Chloride 1,000 ML IVC ONE (07:42)
[2020-12-10] MEDS: Ranolazine 500 MG TAB.ER.12H PO SCH ×2 (07:58→20:14)
[2020-12-10] MEDS: Aspirin 81 MG TAB.CHEW PO SCH (07:58)
[2020-12-10] MEDS: *HR* Ticagrelor 90 MG TABLET PO SCH ×2 (07:59→20:13)
[2020-12-10] MEDS: Acyclovir 200 MG CAPSULE PO SCH ×2 (07:59→20:15)
[2020-12-10] MEDS: Folic Acid 1 MG TABLET PO SCH ×2 (07:59→20:15)
[2020-12-10] MEDS: carvediloL 25 MG TABLET PO SCH ×2 (07:59→16:38)
[2020-12-10] MEDS: Isosorbide MONOnitrate (24 HR) 30 MG TAB.ER.24H PO SCH (07:59)
[2020-12-10] MEDS: amLODIPine 5 MG TABLET PO SCH (07:59)
[2020-12-10] MEDS: Acetaminophen/Butalbital/CaffeineTABLET PO PRN (14:37)
[2020-12-10] MEDS: Acetaminophen 325 MG TABLET PO PRN (15:53)
[2020-12-10] MEDS ORDERED: Nitroglycerin 0.4 MG TAB.SUBL SL PRN (16:11)
[2020-12-10] MEDS: lisinopriL 20 MG TABLET PO SCH (20:13)
[2020-12-10] MEDS: hydrALAZINE 25 MG TABLET PO SCH (20:13)
[2020-12-11] MEDS: Folic Acid 1 MG TABLET PO SCH ×2 (07:48→19:52)
[2020-12-11] MEDS: Ranolazine 500 MG TAB.ER.12H PO SCH ×2 (07:48→19:51)
[2020-12-11] MEDS: amLODIPine 5 MG TABLET PO SCH (07:48)
[2020-12-11] MEDS: Isosorbide MONOnitrate (24 HR) 30 MG TAB.ER.24H PO SCH (07:48)
[2020-12-11] MEDS: Insulin LISPRO 300 UNITS/3 ML VIAL SUBQ SCH ×4 (07:48→21:17)
[2020-12-11] MEDS: Acyclovir 200 MG CAPSULE PO SCH ×2 (07:48→19:52)
[2020-12-11] MEDS: carvediloL 25 MG TABLET PO SCH ×2 (07:49→17:45)
[2020-12-11] MEDS: Aspirin 81 MG TAB.CHEW PO SCH (07:49)
[2020-12-11] MEDS: *HR* Ticagrelor 90 MG TABLET PO SCH ×2 (07:49→19:52)
[2020-12-11 08:09] LABS: Basophils % 0.4 %; Eosinophils # 0.2 K/mcL (0.0-0.6); Hematocrit 26.1 % (37.5-50.1); Hemoglobin 8.3 g/dL (12.9-16.9); Immature Granulocytes % 0.7 % (0-4); Lymphocytes # 1.2 K/mcL (0.6-4.6); Lymphocytes % 16.5 %; Mean Corpuscular HGB Conc 31.8 g/dL (31.6-35.5); Mean Corpuscular Hemoglobin 29.5 pg (28.0-33.3); Mean Corpuscular Volume 92.9 fL (83.0-100.0); Mean Platelet Volume 8.8 fL (9.4-12.4); Monocytes # 0.7 K/mcL (0.0-1.3); Monocytes % 10.2 %; Neutrophils # 4.9 K/mcL (1.6-8.9); Platelet Count 239 K/mcL (140-400); Red Blood Count 2.81 M/mcL (4.19-5.50); Red Cell Distribution Width 12.6 % (11.5-14.5); Segmented Neutrophils % 69.2 %; White Blood Count 7.1 K/mcL (4.3-11.1)
[2020-12-11 08:29] LABS: Calcium 8.5 mg/dL (8.6-10.3); Potassium 4.4 mEq/L (3.5-5.1)
[2020-12-11] MEDS: lisinopriL 20 MG TABLET PO SCH (19:52)
[2020-12-11] MEDS: hydrALAZINE 25 MG TABLET PO SCH (19:52)
[2020-12-12] MEDS: Insulin LISPRO 300 UNITS/3 ML VIAL SUBQ SCH ×4 (08:14→19:41)
[2020-12-12] MEDS: *HR* Ticagrelor 90 MG TABLET PO SCH ×2 (08:24→19:44)
[2020-12-12] MEDS: Isosorbide MONOnitrate (24 HR) 30 MG TAB.ER.24H PO SCH (08:24)
[2020-12-12] MEDS: carvediloL 25 MG TABLET PO SCH ×2 (08:25→17:27)
[2020-12-12] MEDS: Folic Acid 1 MG TABLET PO SCH ×2 (08:25→19:45)
[2020-12-12] MEDS: Acyclovir 200 MG CAPSULE PO SCH ×2 (08:26→19:37)
[2020-12-12] MEDS: Aspirin 81 MG TAB.CHEW PO SCH (08:26)
[2020-12-12] MEDS: amLODIPine 5 MG TABLET PO SCH (08:26)
[2020-12-12] MEDS: Ranolazine 500 MG TAB.ER.12H PO SCH ×2 (08:26→19:44)
[2020-12-12] MEDS: Acetaminophen 325 MG TABLET PO PRN (12:59)
[2020-12-12] MEDS: hydrALAZINE 25 MG TABLET PO SCH (19:44)
[2020-12-12] MEDS: lisinopriL 20 MG TABLET PO SCH (19:45)
[2020-12-13 03:30] LABS: Calcium 7.7 mg/dL (8.6-10.3); Potassium 4.5 mEq/L (3.5-5.1)
[2020-12-13] MEDS: Insulin LISPRO 300 UNITS/3 ML VIAL SUBQ SCH ×2 (07:46→11:16)
[2020-12-13] MEDS: Ranolazine 500 MG TAB.ER.12H PO SCH (08:19)
[2020-12-13] MEDS: Folic Acid 1 MG TABLET PO SCH (08:19)
[2020-12-13] MEDS: *HR* Ticagrelor 90 MG TABLET PO SCH (08:19)
[2020-12-13] MEDS: Acyclovir 200 MG CAPSULE PO SCH (08:19)
[2020-12-13] MEDS: carvediloL 25 MG TABLET PO SCH (08:19)
[2020-12-13] MEDS: amLODIPine 5 MG TABLET PO SCH (08:19)
[2020-12-13] MEDS: Aspirin 81 MG TAB.CHEW PO SCH (08:19)
[2020-12-13] MEDS: Isosorbide MONOnitrate (24 HR) 30 MG TAB.ER.24H PO SCH (08:20)
[2020-12-13] MEDS ORDERED: 0.9 % Sodium Chloride 500 ML ONE (10:24)
[2020-12-13 12:17] LABS: Calcium 7.6 mg/dL (8.6-10.3); Magnesium 1.5 mg/dL (1.6-2.6); Phosphorous 3.2 mg/dL (2.7-4.5); Potassium 4.9 mEq/L (3.5-5.1)
[2020-12-13] MEDS ORDERED: Magnesium Oxide 400 MG TABLET PO SCH (12:45)
[2020-12-13] MEDS ORDERED: Isovue-370 500 ML BOTTLE IVP ONE (13:29)
[2020-12-13] MEDS ORDERED: Alteplase (Activase) 9 MG in Syringe LUER-LOK 1 EACH IVPB ONE (14:12)
[2020-12-13 16:29] VITALS: BP 111/76
== END 2020-12-13 15:20 | disposition short-term general hospital (02) | DRG 73 ==
LOC: 3BNU
PROVIDERS: ADMIT Internal Medicine; ATTEND Internal Medicine

== ENCOUNTER 2021-01-16 19:47 | Observation (INO) ==
[2021-01-16] MEDS ORDERED: Ondansetron 4 MG/2 ML VIAL IVP PRN (21:57)
[2021-01-16] MEDS ORDERED: Naloxone 0.4 MG/ML INJ IVP PRN (21:57)
[2021-01-16] MEDS ORDERED: Melatonin 3 MG TABLET PO PRN (21:57)
[2021-01-16] MEDS ORDERED: Acetaminophen 325 MG TABLET PO PRN (21:57)
[2021-01-16] MEDS ORDERED: *HR* Dextrose 50 % in Water (Vial) 50 ML VIAL IVP PRN (23:04)
[2021-01-16] MEDS ORDERED: D5% in Water 1,000 ML IVC PRN (23:04)
[2021-01-16] MEDS ORDERED: Dextrose Gel 15 GM/37.5 ML TUBE PO PRN ×2 (23:04)
[2021-01-17] MEDS: Insulin LISPRO 300 UNITS/3 ML VIAL SUBQ SCH ×3 (00:42→12:00)
[2021-01-17 01:50] LABS: Basophils % 0.4 %; Eosinophils # 0.2 K/mcL (0.0-0.6); Eosinophils % 2.7 %; Hematocrit 28.1 % (37.5-50.1); Immature Granulocytes % 0.6 % (0-4); Lymphocytes # 2.2 K/mcL (0.6-4.6); Lymphocytes % 25.2 %; Mean Corpuscular Hemoglobin 28.8 pg (28.0-33.3); Mean Corpuscular Volume 90.1 fL (83.0-100.0); Monocytes # 0.5 K/mcL (0.0-1.3); Monocytes % 5.2 %; Neutrophils # 5.9 K/mcL (1.6-8.9); Platelet Count 250 K/mcL (140-400); Red Blood Count 3.12 M/mcL (4.19-5.50); Red Cell Distribution Width 13.3 % (11.5-14.5); Segmented Neutrophils % 65.9 %; White Blood Count 8.9 K/mcL (4.3-11.1)
[2021-01-17 02:12] LABS: Alanine Aminotransferase 8 Units/L (7-52); Albumin 3.1 g/dL (3.5-5.7); Albumin/Globulin Ratio 1.3 (1.1-2.2); Alkaline Phosphatase 92 Units/L (34-104); Aspartate Amino Transferase 13 Units/L (13-39); BUN/Creatinine Ratio 12 (6-26); Bilirubin,Total 0.3 mg/dL (0.3-1.0); Blood Urea Nitrogen 35 mg/dL (8-23); Calcium 8.5 mg/dL (8.6-10.3); Carbon Dioxide 25 mEq/L (23-29); Chloride 104 mEq/L (98-107); Globulin 2.3 g/dL (2.4-3.5); Glucose 310 mg/dL (70-105); Magnesium 1.8 mg/dL (1.6-2.6); Osmolality,Calculated 304 (280-300); Phosphorous 3.2 mg/dL (2.7-4.5); Potassium 4.1 mEq/L (3.5-5.1); Sodium 137 mEq/L (136-145); Total Protein 5.4 g/dL (6.4-8.9); Troponin I < 0.03 ng/mL (< 0.04); eGFR For African Americans 27 (> 60); eGFR For Non-African Americans 22 (> 60)
[2021-01-17] MEDS: *HR* Heparin 5,000 UNIT/ML VIAL SQ SCH ×2 (06:21→17:13)
[2021-01-17 08:50] LABS: Cholesterol 128 mg/dL (< 200); HDL Cholesterol 32 mg/dL (40-59); LDL Cholesterol,Calculated 63 mg/dL (< 100); Triglycerides 165 mg/dL (< 150)
[2021-01-17] MEDS ORDERED: Insulin DETEMIR 100 UNIT/ML X5UNITS SUBQ SCH ×2 (09:00→21:00)
[2021-01-17 09:03] LABS: Thyroid Stimulating Hormone 0.519 mcIU/mL (0.340-5.600)
[2021-01-17] MEDS ORDERED: 0.9 % Sodium Chloride 1,000 ML IVC SCH (09:45)
[2021-01-17] MEDS: Aspirin 81 MG TAB.CHEW PO SCH (09:51)
[2021-01-17] MEDS: *HR* Ticagrelor 90 MG TABLET PO SCH ×2 (09:53→20:25)
[2021-01-17 11:03] LABS: Estimated Average Glucose 209 mg/dl; Hemoglobin A1C 8.9 %
[2021-01-17] MEDS ORDERED: amLODIPine 5 MG TABLET PO SCH (11:30)
[2021-01-17] MEDS: Isosorbide MONOnitrate (24 HR) 30 MG TAB.ER.24H PO SCH (11:59)
[2021-01-17] MEDS: Sodium Bicarbonate 150 MEQ in Water for inj. (sterile) 1,000 ML IVC SCH (15:51)
[2021-01-17] MEDS ORDERED: hydrOXYzine pamoate 25 MG CAPSULE PO PRN (16:02)
[2021-01-17] MEDS ORDERED: lisinopriL 20 MG TABLET PO SCH ×2 (16:08→16:09)
[2021-01-17] MEDS ORDERED: *HR* Metoprolol 5 MG/5 ML VIAL IVP PRN (16:11)
[2021-01-17] MEDS ORDERED: carvediloL 25 MG TABLET PO SCH ×2 (17:00)
[2021-01-17] MEDS: carvediloL 25 MG TABLET PO SCH (17:12)
[2021-01-17] MEDS: INSULIN PUMP CARTRIDGE SQ SCH (17:12)
[2021-01-17] MEDS ORDERED: Insulin Regular, Human 100 UNIT/ML IV ONE (20:05)
[2021-01-17] MEDS: Ranolazine 500 MG TAB.ER.12H PO SCH (20:25)
[2021-01-17] MEDS: Acyclovir 200 MG CAPSULE PO SCH (20:25)
[2021-01-17] MEDS ORDERED: Insulin Human Regular 5 UNIT in 0.9 % Sodium Chloride 10 ML IV ONE (20:45)
[2021-01-17] MEDS ORDERED: Insulin LISPRO 300 UNITS/3 ML VIAL SUBQ SCH (21:00)
[2021-01-18] MEDS: Nitroglycerin 0.4 MG TAB.SUBL SL PRN ×3 (00:32→14:46)
[2021-01-18] MEDS: hydrALAZINE 25 MG TABLET PO SCH ×4 (00:50→23:55)
[2021-01-18 01:09] LABS: Hematocrit 24.4 % (37.5-50.1); Hemoglobin 8.1 g/dL (12.9-16.9); Mean Corpuscular HGB Conc 33.2 g/dL (31.6-35.5); Mean Corpuscular Hemoglobin 29.5 pg (28.0-33.3); Mean Corpuscular Volume 88.7 fL (83.0-100.0); Mean Platelet Volume 8.7 fL (9.4-12.4); Platelet Count 230 K/mcL (140-400); Red Blood Count 2.75 M/mcL (4.19-5.50); Red Cell Distribution Width 12.9 % (11.5-14.5); White Blood Count 6.9 K/mcL (4.3-11.1)
[2021-01-18 01:25] LABS: Magnesium 1.5 mg/dL (1.6-2.6); Phosphorous 3.4 mg/dL (2.7-4.5); Potassium 3.9 mEq/L (3.5-5.1)
[2021-01-18 01:32] LABS: % Iron Saturation 21 % (20-55); Iron 50 mcg/dL (65-175); Transferrin 171 mg/dL (203-362)
[2021-01-18 01:46] LABS: Ferritin 27 ng/mL (20-250)
[2021-01-18 01:52] LABS: Folate 13.3 ng/mL (3.0-16.0)
[2021-01-18] MEDS: Sodium Bicarbonate 150 MEQ in Water for inj. (sterile) 1,000 ML IVC SCH (04:55)
[2021-01-18] MEDS: *HR* Heparin 5,000 UNIT/ML VIAL SQ SCH ×2 (05:50→17:26)
[2021-01-18] MEDS ORDERED: Insulin LISPRO 300 UNITS/3 ML VIAL SUBQ SCH ×2 (07:30→22:00)
[2021-01-18] MEDS ORDERED: Iron Sucrose Complex 400 MG in 0.9 % Sodium Chloride 250 ML IVPB ONE (07:49)
[2021-01-18] MEDS ORDERED: Insulin DETEMIR 100 UNIT/ML X5UNITS SUBQ SCH (09:00)
[2021-01-18] MEDS: Renal Vitamin 1 CAP CAPSULE PO SCH (10:32)
[2021-01-18] MEDS: carvediloL 25 MG TABLET PO SCH ×2 (10:32→17:26)
[2021-01-18] MEDS: amLODIPine 5 MG TABLET PO SCH (10:33)
[2021-01-18] MEDS: Ranolazine 500 MG TAB.ER.12H PO SCH ×2 (10:33→21:06)
[2021-01-18] MEDS: Aspirin 81 MG TAB.CHEW PO SCH (10:33)
[2021-01-18] MEDS: Acyclovir 200 MG CAPSULE PO SCH ×2 (10:33→21:06)
[2021-01-18] MEDS: Isosorbide MONOnitrate (24 HR) 30 MG TAB.ER.24H PO SCH (10:33)
[2021-01-18] MEDS: *HR* Ticagrelor 90 MG TABLET PO SCH ×2 (10:33→21:06)
[2021-01-18] MEDS ORDERED: Perflutren Lipid Microsphere 1.3 ML in 0.9 % Sodium Chloride 8.7 ML IVP PRN (11:19)
[2021-01-18] MEDS: Insulin LISPRO 300 UNITS/3 ML VIAL SUBQ SCH ×2 (11:49→17:26)
[2021-01-18] MEDS ORDERED: Isosorbide MONOnitrate (24 HR) 60 MG TAB.ER.24H PO ONE (13:50)
[2021-01-18] MEDS: Calcium Gluconate 1gm/50mL 1 GM/50 ML BAG IVPB SCH ×2 (13:59→14:36)
[2021-01-18] MEDS ORDERED: *HR* OxyCODONE Immed Rel 5 MG TABLET PO PRN (14:58)
[2021-01-18] MEDS ORDERED: 0.9 % Sodium Chloride 250 ML ONE (15:59)
[2021-01-18] MEDS: INSULIN PUMP CARTRIDGE SQ SCH (16:52)
[2021-01-19 02:14] LABS: Hematocrit 26.4 % (37.5-50.1); Hemoglobin 8.9 g/dL (12.9-16.9); Mean Corpuscular HGB Conc 33.7 g/dL (31.6-35.5); Mean Corpuscular Hemoglobin 29.9 pg (28.0-33.3); Mean Corpuscular Volume 88.6 fL (83.0-100.0); Mean Platelet Volume 9.1 fL (9.4-12.4); Platelet Count 221 K/mcL (140-400); Red Blood Count 2.98 M/mcL (4.19-5.50); Red Cell Distribution Width 13.1 % (11.5-14.5); White Blood Count 6.9 K/mcL (4.3-11.1)
[2021-01-19 02:34] LABS: Calcium 8.1 mg/dL (8.6-10.3); Magnesium 1.9 mg/dL (1.6-2.6); Phosphorous 3.7 mg/dL (2.7-4.5); Potassium 3.9 mEq/L (3.5-5.1)
[2021-01-19] MEDS: Sodium Bicarbonate 150 MEQ in Water for inj. (sterile) 1,000 ML IVC SCH ×2 (04:22→13:09)
[2021-01-19] MEDS: *HR* Heparin 5,000 UNIT/ML VIAL SQ SCH (05:36)
[2021-01-19] MEDS: amLODIPine 5 MG TABLET PO SCH (08:39)
[2021-01-19] MEDS: Renal Vitamin 1 CAP CAPSULE PO SCH (08:39)
[2021-01-19] MEDS: Aspirin 81 MG TAB.CHEW PO SCH (08:39)
[2021-01-19] MEDS: Ranolazine 500 MG TAB.ER.12H PO SCH (08:41)
[2021-01-19] MEDS: Acyclovir 200 MG CAPSULE PO SCH (08:41)
[2021-01-19] MEDS: carvediloL 25 MG TABLET PO SCH (08:41)
[2021-01-19] MEDS: hydrALAZINE 25 MG TABLET PO SCH (08:41)
[2021-01-19] MEDS: Insulin LISPRO 300 UNITS/3 ML VIAL SUBQ SCH ×2 (08:45→12:30)
[2021-01-19] MEDS: *HR* Ticagrelor 90 MG TABLET PO SCH (08:55)
[2021-01-19] MEDS ORDERED: Isosorbide MONOnitrate (24 HR) 60 MG TAB.ER.24H PO SCH (09:00)
[2021-01-19] MEDS ORDERED: Artificial Tears SOLN 15 ML BOTTLE BOTH EYES PRN (11:47)
[2021-01-19 14:58] VITALS: BP 108/61
== END 2021-01-19 15:55 | disposition home or self-care (01) ==
LOC: 3NENU → SUATTDRO 21:34
PROVIDERS: ADMIT Family Medicine; ATTEND Internal Medicine

== ENCOUNTER 2021-01-28 17:50 | Observation (INO) ==
[2021-01-28] MEDS ORDERED: 0.9 % Sodium Chloride 500 ML IVC ONE (18:42)
[2021-01-28] MEDS ORDERED: Acetaminophen 325 MG TABLET PO PRN (19:30)
[2021-01-28] MEDS ORDERED: Naloxone 0.4 MG/ML INJ IVP PRN (19:30)
[2021-01-28] MEDS ORDERED: Ondansetron 4 MG/2 ML VIAL IVP PRN (19:30)
[2021-01-28 20:09] LABS: Albumin 3.5 g/dL (3.5-5.7); Albumin/Globulin Ratio 1.4 (1.1-2.2); Bilirubin,Total 0.5 mg/dL (0.3-1.0); Calcium 9.1 mg/dL (8.6-10.3); Globulin 2.5 g/dL (2.4-3.5); Magnesium 2.1 mg/dL (1.6-2.6); Potassium 4.9 mEq/L (3.5-5.1)
[2021-01-28] MEDS ORDERED: *HR* Dextrose 50 % in Water (Vial) 50 ML VIAL IVP PRN (20:42)
[2021-01-28] MEDS ORDERED: Dextrose Gel 15 GM/37.5 ML TUBE PO PRN ×2 (20:42)
[2021-01-28] MEDS ORDERED: D5% in Water 1,000 ML IVC PRN (20:42)
[2021-01-28 21:13] LABS: Bacteria,Urine Few per hpf (None-Few); Bilirubin,Urine Negative (Negative); Blood,Urine Small (Negative); Clarity,Urine Turbid (Clear); Color,Urine Yellow (Yellow); Glucose,Urine (UA) 300 mg/dL (Normal); Ketones,Urine Negative (Negative); Leukocyte Esterase,Urine Large (Negative); Nitrite,Urine Negative (Negative); Protein,Urine 200 mg/dL (Neg-Trace); Specific Gravity,Urine 1.013 (1.010-1.025); Urobilinogen,Urine Normal (Normal); WBC,Urine TNTC per hpf (0-3)
[2021-01-28] MEDS: Insulin LISPRO 300 UNITS/3 ML VIAL SUBQ SCH ×2 (21:21)
[2021-01-29 07:27] LABS: Prothrombin Time 12.1 Seconds (9.4-12.1)
[2021-01-29] MEDS: Insulin LISPRO 300 UNITS/3 ML VIAL SUBQ SCH ×4 (07:50→20:54)
[2021-01-29 07:51] LABS: Basophils % 0.5 %; Eosinophils # 0.2 K/mcL (0.0-0.6); Eosinophils % 2.9 %; Hemoglobin 10.2 g/dL (12.9-16.9); Immature Granulocytes % 0.7 % (0-4); Lymphocytes # 1.3 K/mcL (0.6-4.6); Lymphocytes % 22.7 %; Mean Corpuscular HGB Conc 32.9 g/dL (31.6-35.5); Mean Corpuscular Hemoglobin 29.6 pg (28.0-33.3); Mean Corpuscular Volume 89.9 fL (83.0-100.0); Mean Platelet Volume 9.3 fL (9.4-12.4); Monocytes # 0.6 K/mcL (0.0-1.3); Monocytes % 9.5 %; Neutrophils # 3.7 K/mcL (1.6-8.9); Platelet Count 293 K/mcL (140-400); Red Blood Count 3.45 M/mcL (4.19-5.50); Red Cell Distribution Width 12.9 % (11.5-14.5); Segmented Neutrophils % 63.7 %; White Blood Count 5.8 K/mcL (4.3-11.1)
[2021-01-29 08:20] LABS: Calcium 8.5 mg/dL (8.6-10.3); Potassium 4.7 mEq/L (3.5-5.1)
[2021-01-29] MEDS ORDERED: Insulin Human Regular 20 UNIT in 0.9 % Sodium Chloride 10 ML IV ONE (08:37)
[2021-01-29] MEDS ORDERED: Artificial Tears SOLN 15 ML BOTTLE BOTH EYES PRN (08:38)
[2021-01-29] MEDS ORDERED: hydrOXYzine pamoate 25 MG CAPSULE PO PRN (08:38)
[2021-01-29] MEDS ORDERED: Insulin DETEMIR 100 UNIT/ML X5UNITS SUBQ SCH (09:00)
[2021-01-29] MEDS: 0.9 % Sodium Chloride 1,000 ML IVC SCH ×2 (09:25→23:06)
[2021-01-29] MEDS: Ranolazine 500 MG TAB.ER.12H PO SCH ×2 (09:25→20:52)
[2021-01-29] MEDS: Cholecalciferol (D-3) 1,000 UNIT (25MCG) TABLET PO SCH (09:25)
[2021-01-29] MEDS: *HR* Ticagrelor 90 MG TABLET PO SCH ×2 (09:26→20:52)
[2021-01-29] MEDS: amLODIPine 5 MG TABLET PO SCH (09:26)
[2021-01-29] MEDS: Folic Acid 1 MG TABLET PO SCH ×2 (09:26→20:52)
[2021-01-29] MEDS: Aspirin 81 MG TAB.CHEW PO SCH (09:26)
[2021-01-29] MEDS: Isosorbide MONOnitrate (24 HR) 60 MG TAB.ER.24H PO SCH (09:26)
[2021-01-29] MEDS ORDERED: 0.9 % Sodium Chloride 1,000 ML IVC ONE (14:24)
[2021-01-29] MEDS: *HR* Heparin 5,000 UNIT/ML VIAL SQ SCH (17:32)
[2021-01-29] MEDS ORDERED: Acyclovir 200 MG CAPSULE PO SCH (21:00)
[2021-01-30] MEDS: *HR* Heparin 5,000 UNIT/ML VIAL SQ SCH ×2 (05:08→17:25)
[2021-01-30 07:48] LABS: Basophils # 0.1 K/mcL (0.0-0.2); Basophils % 0.8 %; Eosinophils # 0.2 K/mcL (0.0-0.6); Eosinophils % 2.8 %; Hematocrit 30.2 % (37.5-50.1); Hemoglobin 9.8 g/dL (12.9-16.9); Immature Granulocytes % 0.6 % (0-4); Lymphocytes # 1.8 K/mcL (0.6-4.6); Lymphocytes % 28.3 %; Mean Corpuscular HGB Conc 32.5 g/dL (31.6-35.5); Mean Corpuscular Hemoglobin 28.9 pg (28.0-33.3); Mean Corpuscular Volume 89.1 fL (83.0-100.0); Mean Platelet Volume 9.1 fL (9.4-12.4); Monocytes # 0.6 K/mcL (0.0-1.3); Monocytes % 9.5 %; Neutrophils # 3.7 K/mcL (1.6-8.9); Platelet Count 273 K/mcL (140-400); Red Blood Count 3.39 M/mcL (4.19-5.50); Red Cell Distribution Width 12.8 % (11.5-14.5); White Blood Count 6.4 K/mcL (4.3-11.1)
[2021-01-30] MEDS ORDERED: carvediloL 25 MG TABLET PO SCH (08:00)
[2021-01-30] MEDS: *HR* Ticagrelor 90 MG TABLET PO SCH ×2 (08:05→21:06)
[2021-01-30] MEDS: Cholecalciferol (D-3) 1,000 UNIT (25MCG) TABLET PO SCH (08:05)
[2021-01-30] MEDS: Ranolazine 500 MG TAB.ER.12H PO SCH ×2 (08:05→21:06)
[2021-01-30] MEDS: Folic Acid 1 MG TABLET PO SCH ×2 (08:05→21:07)
[2021-01-30] MEDS: amLODIPine 5 MG TABLET PO SCH (08:05)
[2021-01-30] MEDS: Aspirin 81 MG TAB.CHEW PO SCH (08:06)
[2021-01-30] MEDS: Isosorbide MONOnitrate (24 HR) 60 MG TAB.ER.24H PO SCH (08:06)
[2021-01-30] MEDS: Insulin LISPRO 300 UNITS/3 ML VIAL SUBQ SCH ×4 (08:09→20:57)
[2021-01-30 08:28] LABS: Calcium 8.3 mg/dL (8.6-10.3); Magnesium 1.7 mg/dL (1.6-2.6); Phosphorous 3.9 mg/dL (2.7-4.5)
[2021-01-30] MEDS: 0.9 % Sodium Chloride 1,000 ML IVC SCH ×3 (12:41→12:54)
[2021-01-30] MEDS: carvediloL 25 MG TABLET PO SCH (17:25)
[2021-01-30] MEDS ORDERED: SUMAtriptan succinate 50 MG TABLET PO ONE (17:46)
[2021-01-30] MEDS: hydrALAZINE 25 MG TABLET PO SCH ×2 (19:35→23:44)
[2021-01-30] MEDS ORDERED: Ketorolac 30 MG/ML VIAL IVP ONE (20:59)
[2021-01-30] MEDS ORDERED: Prochlorperazine 10 MG/2 ML VIAL IVP PRN (20:59)
[2021-01-30] MEDS ORDERED: Insulin DETEMIR 100 UNIT/ML X5UNITS SUBQ SCH (21:00)
[2021-01-31 02:14] LABS: Basophils # 0.1 K/mcL (0.0-0.2); Basophils % 0.9 %; Eosinophils # 0.2 K/mcL (0.0-0.6); Eosinophils % 3.5 %; Hematocrit 30.2 % (37.5-50.1); Hemoglobin 9.9 g/dL (12.9-16.9); Immature Granulocytes % 0.9 % (0-4); Lymphocytes # 1.6 K/mcL (0.6-4.6); Mean Corpuscular HGB Conc 32.8 g/dL (31.6-35.5); Mean Corpuscular Hemoglobin 28.9 pg (28.0-33.3); Mean Corpuscular Volume 88.3 fL (83.0-100.0); Mean Platelet Volume 8.9 fL (9.4-12.4); Monocytes # 0.5 K/mcL (0.0-1.3); Monocytes % 9.3 %; Neutrophils # 3.1 K/mcL (1.6-8.9); Platelet Count 269 K/mcL (140-400); Red Blood Count 3.42 M/mcL (4.19-5.50); Red Cell Distribution Width 12.6 % (11.5-14.5); Segmented Neutrophils % 56.4 %; White Blood Count 5.5 K/mcL (4.3-11.1)
[2021-01-31 02:39] LABS: Calcium 8.5 mg/dL (8.6-10.3); Magnesium 1.7 mg/dL (1.6-2.6); Phosphorous 3.8 mg/dL (2.7-4.5)
[2021-01-31] MEDS: *HR* Heparin 5,000 UNIT/ML VIAL SQ SCH (05:01)
[2021-01-31] MEDS: carvediloL 25 MG TABLET PO SCH (07:58)
[2021-01-31] MEDS: Ranolazine 500 MG TAB.ER.12H PO SCH (07:58)
[2021-01-31] MEDS: Aspirin 81 MG TAB.CHEW PO SCH (07:58)
[2021-01-31] MEDS: *HR* Ticagrelor 90 MG TABLET PO SCH (07:58)
[2021-01-31] MEDS: Isosorbide MONOnitrate (24 HR) 60 MG TAB.ER.24H PO SCH (07:58)
[2021-01-31] MEDS: Folic Acid 1 MG TABLET PO SCH (07:58)
[2021-01-31] MEDS: Cholecalciferol (D-3) 1,000 UNIT (25MCG) TABLET PO SCH (07:58)
[2021-01-31] MEDS: hydrALAZINE 25 MG TABLET PO SCH (08:00)
[2021-01-31] MEDS: Insulin LISPRO 300 UNITS/3 ML VIAL SUBQ SCH ×2 (08:05→12:08)
[2021-01-31] MEDS ORDERED: NIFEdipine XL (24 HR) 30 MG TAB.ER.24 PO SCH (09:00)
[2021-01-31 11:12] LABS: Adenovirus Not Detected (Not Detect); Bordetella Pertussis Not Detected (Not Detect); Chlamydophila pneumoniae Not Detected (Not Detect); Coronavirus 229E Not Detected (Not Detect); Coronavirus HKU1 Not Detected (Not Detect); Coronavirus NL63 Not Detected (Not Detect); Coronavirus OC43 Not Detected (Not Detect); Human Metapneumovirus Not Detected (Not Detect); Human Rhinovirus/Enterovirus Not Detected (Not Detect); Influenza A Subtype 2009 H1 Not Detected (Not Detect); Influenza B Not Detected (Not Detect); Mycoplasma pneumoniae Not Detected (Not Detect); Parainfluenza Virus 1 Not Detected (Not Detect); Parainfluenza Virus 2 Not Detected (Not Detect); Parainfluenza Virus 3 Not Detected (Not Detect); Parainfluenza Virus 4 Not Detected (Not Detect); Respiratory Syncytial Virus Not Detected (Not Detect); SARS-CoV-2 Not Detected (Not Detect)
[2021-01-31 14:46] VITALS: BP 111/66
== END 2021-01-31 16:24 ==
LOC: 3BNU 17:50 → EMEROOARM 17:50 → SUATTDRO 19:12 → 3BNU 20:19
PROVIDERS: ADMIT Family Medicine; ATTEND Internal Medicine

== ENCOUNTER 2021-02-22 20:29 | Observation (INO) ==
[2021-02-22 21:51] LABS: Basophils % 0.6 %; Eosinophils # 0.1 K/mcL (0.0-0.6); Eosinophils % 1.9 %; Hematocrit 29.2 % (37.5-50.1); Hemoglobin 9.2 g/dL (12.9-16.9); Immature Granulocytes % 0.4 % (0-4); Lymphocytes % 13.6 %; Mean Corpuscular HGB Conc 31.5 g/dL (31.6-35.5); Mean Corpuscular Hemoglobin 28.9 pg (28.0-33.3); Mean Corpuscular Volume 91.8 fL (83.0-100.0); Monocytes # 0.6 K/mcL (0.0-1.3); Monocytes % 8.5 %; Neutrophils # 5.4 K/mcL (1.6-8.9); Platelet Count 223 K/mcL (140-400); Red Blood Count 3.18 M/mcL (4.19-5.50); Red Cell Distribution Width 13.2 % (11.5-14.5); White Blood Count 7.2 K/mcL (4.3-11.1)
[2021-02-22 22:08] LABS: Alanine Aminotransferase 11 Units/L (7-52); Albumin 3.6 g/dL (3.5-5.7); Albumin/Globulin Ratio 1.6 (1.1-2.2); Alkaline Phosphatase 75 Units/L (34-104); Aspartate Amino Transferase 16 Units/L (13-39); BUN/Creatinine Ratio 13 (6-26); Bilirubin,Total 0.5 mg/dL (0.3-1.0); Blood Urea Nitrogen 37 mg/dL (8-23); Calcium 8.9 mg/dL (8.6-10.3); Carbon Dioxide 25 mEq/L (23-29); Chloride 107 mEq/L (98-107); Ethanol < 10 mg/dL (Less than 10); Globulin 2.2 g/dL (2.4-3.5); Glucose 174 mg/dL (70-105); Osmolality,Calculated 299 (280-300); Potassium 4.6 mEq/L (3.5-5.1); Sodium 138 mEq/L (136-145); Total Protein 5.8 g/dL (6.4-8.9); Troponin I < 0.03 ng/mL (< 0.04); eGFR For African Americans 26 (> 60); eGFR For Non-African Americans 22 (> 60)
[2021-02-22 22:32] LABS: Bilirubin,Urine Negative (Negative); Blood,Urine Small (Negative); Clarity,Urine Clear (Clear); Color,Urine Light-Yellow (Yellow); Glucose,Urine (UA) 150 mg/dL (Normal); Ketones,Urine Negative (Negative); Leukocyte Esterase,Urine Trace (Negative); Nitrite,Urine Negative (Negative); PH,Urine 6.5 pH Units (5.0-8.0); Protein,Urine 200 mg/dL (Neg-Trace); Specific Gravity,Urine 1.014 (1.010-1.025); Urobilinogen,Urine Normal (Normal)
[2021-02-22] MEDS ORDERED: Pantoprazole 40 MG VIAL IVP ONE (23:05)
[2021-02-23] MEDS ORDERED: Naloxone 0.4 MG/ML INJ IVP PRN (01:24)
[2021-02-23] MEDS: hydrALAZINE 25 MG TABLET PO SCH ×3 (03:11→17:39)
[2021-02-23] MEDS ORDERED: D5% in Water 1,000 ML IVC PRN (03:15)
[2021-02-23] MEDS ORDERED: Dextrose Gel 15 GM/37.5 ML TUBE PO PRN ×2 (03:15)
[2021-02-23] MEDS ORDERED: *HR* Dextrose 50 % in Water (Vial) 50 ML VIAL IVP PRN (03:15)
[2021-02-23] MEDS: *HR* Heparin 5,000 UNIT/ML VIAL SQ SCH ×3 (06:01→21:22)
[2021-02-23] MEDS ORDERED: Insulin LISPRO 300 UNITS/3 ML VIAL SUBQ SCH ×2 (07:30→21:00)
[2021-02-23] MEDS: Aspirin 81 MG TAB.CHEW PO SCH (08:46)
[2021-02-23] MEDS: carvediloL 25 MG TABLET PO SCH (08:46)
[2021-02-23 08:51] LABS: Basophils % 0.4 %; Eosinophils # 0.2 K/mcL (0.0-0.6); Eosinophils % 2.5 %; Hematocrit 29.1 % (37.5-50.1); Hemoglobin 9.1 g/dL (12.9-16.9); Immature Granulocytes % 0.4 % (0-4); Mean Corpuscular HGB Conc 31.3 g/dL (31.6-35.5); Mean Corpuscular Hemoglobin 29.2 pg (28.0-33.3); Mean Corpuscular Volume 93.3 fL (83.0-100.0); Mean Platelet Volume 9.2 fL (9.4-12.4); Monocytes # 0.6 K/mcL (0.0-1.3); Monocytes % 8.2 %; Neutrophils # 5.5 K/mcL (1.6-8.9); Platelet Count 221 K/mcL (140-400); Red Blood Count 3.12 M/mcL (4.19-5.50); Red Cell Distribution Width 13.2 % (11.5-14.5); Segmented Neutrophils % 75.5 %; White Blood Count 7.3 K/mcL (4.3-11.1)
[2021-02-23 09:11] LABS: Calcium 8.9 mg/dL (8.6-10.3); Potassium 4.2 mEq/L (3.5-5.1)
[2021-02-23] MEDS ORDERED: (Insulin Pump Cartridge [Insulin Pump] 1 EACH Implant SQ SCH (12:00)
[2021-02-23] MEDS: cefTRIAXone 1,000 MG in Water for inj. (sterile) 10 ML IVPB SCH (12:54)
[2021-02-23] MEDS ORDERED: amLODIPine 5 MG TABLET PO ONE (17:42)
[2021-02-23] MEDS: (Insulin Pump Cartridge [Insulin Pump] 1 EACH Implant SQ SCH ×2 (17:53→21:22)
[2021-02-24] MEDS: carvediloL 25 MG TABLET PO SCH ×3 (00:15→16:53)
[2021-02-24] MEDS: hydrALAZINE 25 MG TABLET PO SCH ×4 (00:20→23:47)
[2021-02-24] MEDS: *HR* Heparin 5,000 UNIT/ML VIAL SQ SCH ×3 (05:40→19:50)
[2021-02-24 06:20] LABS: Basophils % 0.5 %; Eosinophils # 0.2 K/mcL (0.0-0.6); Hemoglobin 8.7 g/dL (12.9-16.9); Immature Granulocytes % 0.5 % (0-4); Lymphocytes # 1.4 K/mcL (0.6-4.6); Lymphocytes % 22.7 %; Mean Corpuscular HGB Conc 31.1 g/dL (31.6-35.5); Mean Corpuscular Hemoglobin 28.7 pg (28.0-33.3); Mean Corpuscular Volume 92.4 fL (83.0-100.0); Mean Platelet Volume 9.1 fL (9.4-12.4); Monocytes # 0.7 K/mcL (0.0-1.3); Monocytes % 10.7 %; Platelet Count 226 K/mcL (140-400); Red Blood Count 3.03 M/mcL (4.19-5.50); Red Cell Distribution Width 13.1 % (11.5-14.5); Segmented Neutrophils % 62.6 %; White Blood Count 6.3 K/mcL (4.3-11.1)
[2021-02-24 06:33] LABS: Calcium 8.5 mg/dL (8.6-10.3); Potassium 4.2 mEq/L (3.5-5.1)
[2021-02-24] MEDS: Aspirin 81 MG TAB.CHEW PO SCH (08:32)
[2021-02-24] MEDS: (Insulin Pump Cartridge [Insulin Pump] 1 EACH Implant SQ SCH ×4 (08:32→19:59)
[2021-02-24] MEDS ORDERED: amLODIPine 5 MG TABLET PO SCH (09:00)
[2021-02-24] MEDS: cefTRIAXone 1,000 MG in Water for inj. (sterile) 10 ML IVPB SCH (13:10)
[2021-02-24] MEDS ORDERED: carvediloL 25 MG TABLET PO SCH (17:00)
[2021-02-24] MEDS ORDERED: amLODIPine 5 MG TABLET PO ONE (17:42)
[2021-02-24] MEDS ORDERED: Acetaminophen 325 MG TABLET PO PRN (18:50)
[2021-02-24] MEDS: Ranolazine 500 MG TAB.ER.12H PO SCH (19:43)
[2021-02-24] MEDS: lisinopriL 20 MG TABLET PO SCH (19:44)
[2021-02-24] MEDS: Folic Acid 1 MG TABLET PO SCH (19:44)
[2021-02-24] MEDS: *HR* Ticagrelor 90 MG TABLET PO SCH (19:46)
[2021-02-24] MEDS ORDERED: Acyclovir 200 MG CAPSULE PO SCH (21:00)
[2021-02-25 03:29] LABS: Basophils % 0.7 %; Eosinophils # 0.2 K/mcL (0.0-0.6); Eosinophils % 3.6 %; Hemoglobin 8.5 g/dL (12.9-16.9); Immature Granulocytes % 0.4 % (0-4); Lymphocytes # 1.4 K/mcL (0.6-4.6); Lymphocytes % 25.6 %; Mean Corpuscular HGB Conc 32.7 g/dL (31.6-35.5); Mean Corpuscular Hemoglobin 29.4 pg (28.0-33.3); Mean Platelet Volume 8.9 fL (9.4-12.4); Monocytes # 0.6 K/mcL (0.0-1.3); Monocytes % 10.9 %; Neutrophils # 3.3 K/mcL (1.6-8.9); Platelet Count 209 K/mcL (140-400); Red Blood Count 2.89 M/mcL (4.19-5.50); Red Cell Distribution Width 12.6 % (11.5-14.5); Segmented Neutrophils % 58.8 %; White Blood Count 5.6 K/mcL (4.3-11.1)
[2021-02-25 03:48] LABS: Calcium 8.4 mg/dL (8.6-10.3); Potassium 4.5 mEq/L (3.5-5.1)
[2021-02-25] MEDS: *HR* Heparin 5,000 UNIT/ML VIAL SQ SCH (05:25)
[2021-02-25] MEDS: hydrALAZINE 25 MG TABLET PO SCH (07:31)
[2021-02-25] MEDS: Ranolazine 500 MG TAB.ER.12H PO SCH (07:31)
[2021-02-25] MEDS: Aspirin 81 MG TAB.CHEW PO SCH (07:31)
[2021-02-25] MEDS: (Insulin Pump Cartridge [Insulin Pump] 1 EACH Implant SQ SCH (07:31)
[2021-02-25] MEDS: lisinopriL 20 MG TABLET PO SCH (07:32)
[2021-02-25] MEDS: *HR* Ticagrelor 90 MG TABLET PO SCH (07:32)
[2021-02-25] MEDS: Folic Acid 1 MG TABLET PO SCH (07:32)
[2021-02-25] MEDS: carvediloL 25 MG TABLET PO SCH (07:32)
[2021-02-25] MEDS ORDERED: Vitamin B Complex/Vit C/Vit E 1 EACH TABLET PO SCH (09:00)
[2021-02-25] MEDS ORDERED: Multivit/Ca/Min/Fe/FA 1 TAB TABLET PO SCH (09:00)
[2021-02-25] MEDS ORDERED: aMILoride 5 MG TABLET PO SCH (09:00)
[2021-02-25 09:55] VITALS: BP 191/86
== END 2021-02-25 11:40 | disposition home or self-care (01) ==
LOC: EMEROOARM 20:29 → 3ANU 20:29 → SUATTDRO 02-23 01:59 → 3ANU 02-23 02:50
PROVIDERS: ADMIT Internal Medicine; ATTEND Family Medicine

== ENCOUNTER 2021-03-03 15:10 | Observation (INO) ==
[2021-03-03 16:30] LABS: Basophils % 0.5 %; Eosinophils # 0.1 K/mcL (0.0-0.6); Eosinophils % 2.3 %; Hematocrit 28.7 % (37.5-50.1); Hemoglobin 9.1 g/dL (12.9-16.9); Immature Granulocytes % 0.7 % (0-4); Lymphocytes # 0.8 K/mcL (0.6-4.6); Lymphocytes % 13.4 %; Mean Corpuscular HGB Conc 31.7 g/dL (31.6-35.5); Mean Corpuscular Hemoglobin 29.3 pg (28.0-33.3); Mean Corpuscular Volume 92.3 fL (83.0-100.0); Mean Platelet Volume 9.3 fL (9.4-12.4); Monocytes # 0.5 K/mcL (0.0-1.3); Monocytes % 8.9 %; Neutrophils # 4.4 K/mcL (1.6-8.9); Platelet Count 313 K/mcL (140-400); Red Blood Count 3.11 M/mcL (4.19-5.50); Red Cell Distribution Width 12.5 % (11.5-14.5); Segmented Neutrophils % 74.2 %
[2021-03-03 16:39] LABS: INR 1.1; Prothrombin Time 12.6 Seconds (9.4-12.1)
[2021-03-03 16:42] LABS: Activated Partial Thrombo Time 28.3 Seconds (26.0-36.0)
[2021-03-03 16:52] LABS: Alanine Aminotransferase 12 Units/L (7-52); Albumin 3.7 g/dL (3.5-5.7); Albumin/Globulin Ratio 1.5 (1.1-2.2); Alkaline Phosphatase 115 Units/L (34-104); Aspartate Amino Transferase 19 Units/L (13-39); BUN/Creatinine Ratio 13 (6-26); Bilirubin,Total 0.5 mg/dL (0.3-1.0); Blood Urea Nitrogen 49 mg/dL (8-23); Calcium 8.9 mg/dL (8.6-10.3); Carbon Dioxide 21 mEq/L (23-29); Chloride 102 mEq/L (98-107); Globulin 2.5 g/dL (2.4-3.5); Glucose 315 mg/dL (70-105); Magnesium 1.8 mg/dL (1.6-2.6); Osmolality,Calculated 299 (280-300); Potassium 6.4 mEq/L (3.5-5.1); Sodium 132 mEq/L (136-145); Total Protein 6.2 g/dL (6.4-8.9); eGFR For African Americans 20 (> 60); eGFR For Non-African Americans 17 (> 60)
[2021-03-03 16:54] LABS: Troponin I < 0.03 ng/mL (< 0.04)
[2021-03-03] MEDS ORDERED: Insulin Human Regular 10 UNIT in 0.9 % Sodium Chloride 10 ML IV ONE (17:10)
[2021-03-03 17:13] LABS: Bilirubin,Urine Negative (Negative); Blood,Urine Negative (Negative); Clarity,Urine Clear (Clear); Color,Urine Light-Yellow (Yellow); Glucose,Urine (UA) >=1000 mg/dL (Normal); Ketones,Urine Negative (Negative); Leukocyte Esterase,Urine Negative (Negative); Nitrite,Urine Negative (Negative); PH,Urine 6.5 pH Units (5.0-8.0); Protein,Urine 100 mg/dL (Neg-Trace); Specific Gravity,Urine 1.014 (1.010-1.025); Urobilinogen,Urine Normal (Normal)
[2021-03-03] MEDS ORDERED: Naloxone 0.4 MG/ML INJ IVP PRN (17:16)
[2021-03-03] MEDS ORDERED: Ondansetron 4 MG/2 ML VIAL IVP PRN (17:16)
[2021-03-03] MEDS ORDERED: *HR* HYDROcodone/Acet 5/325 mg TABLET PO PRN (17:22)
[2021-03-03] MEDS ORDERED: 0.9 % Sodium Chloride 1,000 ML IVC SCH (17:30)
[2021-03-03] MEDS ORDERED: Artificial Tears SOLN 15 ML BOTTLE BOTH EYES PRN (18:04)
[2021-03-03] MEDS ORDERED: Acetaminophen 325 MG TABLET PO PRN (18:04)
[2021-03-03] MEDS ORDERED: hydrOXYzine pamoate 25 MG CAPSULE PO PRN (18:04)
[2021-03-03] MEDS ORDERED: Albuterol 2.5 MG/3 ML NEBULIZER IH ONE (18:20)
[2021-03-03] MEDS: Acyclovir 200 MG CAPSULE PO SCH (20:13)
[2021-03-03] MEDS: Ranolazine 500 MG TAB.ER.12H PO SCH (20:13)
[2021-03-03] MEDS: *HR* Ticagrelor 90 MG TABLET PO SCH (20:13)
[2021-03-03] MEDS: carvediloL 25 MG TABLET PO SCH (20:14)
[2021-03-03] MEDS: Folic Acid 1 MG TABLET PO SCH (20:14)
[2021-03-03] MEDS: hydrALAZINE 25 MG TABLET PO SCH (23:29)
[2021-03-04] MEDS: *HR* Heparin 5,000 UNIT/ML VIAL SQ SCH ×2 (05:29→16:30)
[2021-03-04 07:49] LABS: Basophils % 0.5 %; Eosinophils # 0.2 K/mcL (0.0-0.6); Eosinophils % 3.8 %; Hematocrit 26.5 % (37.5-50.1); Hemoglobin 8.6 g/dL (12.9-16.9); Immature Granulocytes % 0.7 % (0-4); Lymphocytes # 1.2 K/mcL (0.6-4.6); Mean Corpuscular HGB Conc 32.5 g/dL (31.6-35.5); Mean Corpuscular Hemoglobin 29.7 pg (28.0-33.3); Mean Corpuscular Volume 91.4 fL (83.0-100.0); Mean Platelet Volume 9.4 fL (9.4-12.4); Monocytes # 0.6 K/mcL (0.0-1.3); Monocytes % 10.7 %; Neutrophils # 3.4 K/mcL (1.6-8.9); Platelet Count 238 K/mcL (140-400); Red Cell Distribution Width 12.4 % (11.5-14.5); Segmented Neutrophils % 62.3 %; White Blood Count 5.5 K/mcL (4.3-11.1)
[2021-03-04 07:56] LABS: INR 1.1; Prothrombin Time 12.2 Seconds (9.4-12.1)
[2021-03-04 07:59] LABS: Activated Partial Thrombo Time 30.1 Seconds (26.0-36.0)
[2021-03-04 08:00] LABS: Calcium 8.7 mg/dL (8.6-10.3); Magnesium 1.6 mg/dL (1.6-2.6); Potassium 5.2 mEq/L (3.5-5.1)
[2021-03-04] MEDS: Aspirin 81 MG TAB.CHEW PO SCH (08:08)
[2021-03-04] MEDS: Folic Acid 1 MG TABLET PO SCH ×2 (08:08→20:17)
[2021-03-04] MEDS: hydrALAZINE 25 MG TABLET PO SCH ×2 (08:08→16:30)
[2021-03-04] MEDS: *HR* Ticagrelor 90 MG TABLET PO SCH ×2 (08:08→20:16)
[2021-03-04] MEDS: carvediloL 25 MG TABLET PO SCH ×2 (08:08→16:29)
[2021-03-04] MEDS: OWN INSULIN PUMP SQ SCH (08:09)
[2021-03-04] MEDS: Ranolazine 500 MG TAB.ER.12H PO SCH ×2 (08:13→20:16)
[2021-03-04] MEDS ORDERED: amLODIPine 5 MG TABLET PO SCH (09:00)
[2021-03-04] MEDS ORDERED: Insulin LISPRO 300 UNITS/3 ML VIAL SUBQ ONE (09:07)
[2021-03-04] MEDS ORDERED: Ipratropium/Albuterol Neb 3 ML IH ONE (09:09)
[2021-03-04] MEDS: Acyclovir 200 MG CAPSULE PO SCH (20:16)
[2021-03-05] MEDS: hydrALAZINE 25 MG TABLET PO SCH ×2 (00:19→09:21)
[2021-03-05] MEDS: *HR* Heparin 5,000 UNIT/ML VIAL SQ SCH (05:18)
[2021-03-05 06:03] LABS: Basophils % 0.3 %; Eosinophils # 0.2 K/mcL (0.0-0.6); Eosinophils % 3.3 %; Hematocrit 27.1 % (37.5-50.1); Hemoglobin 8.9 g/dL (12.9-16.9); Immature Granulocytes % 0.5 % (0-4); Lymphocytes # 1.5 K/mcL (0.6-4.6); Lymphocytes % 25.9 %; Mean Corpuscular HGB Conc 32.8 g/dL (31.6-35.5); Mean Corpuscular Hemoglobin 29.5 pg (28.0-33.3); Mean Corpuscular Volume 89.7 fL (83.0-100.0); Mean Platelet Volume 9.3 fL (9.4-12.4); Monocytes # 0.6 K/mcL (0.0-1.3); Monocytes % 11.1 %; Neutrophils # 3.4 K/mcL (1.6-8.9); Platelet Count 255 K/mcL (140-400); Red Blood Count 3.02 M/mcL (4.19-5.50); Red Cell Distribution Width 12.1 % (11.5-14.5); Segmented Neutrophils % 58.9 %; White Blood Count 5.8 K/mcL (4.3-11.1)
[2021-03-05 06:18] LABS: Calcium 8.3 mg/dL (8.6-10.3); Magnesium 1.4 mg/dL (1.6-2.6); Phosphorous 3.9 mg/dL (2.7-4.5); Potassium 4.2 mEq/L (3.5-5.1)
[2021-03-05 06:43] VITALS: BP 163/80
[2021-03-05] MEDS ORDERED: NIFEdipine XL (24 HR) 60 MG TAB.ER.24 PO SCH (09:00)
[2021-03-05] MEDS: Aspirin 81 MG TAB.CHEW PO SCH (09:19)
[2021-03-05] MEDS: Ranolazine 500 MG TAB.ER.12H PO SCH (09:19)
[2021-03-05] MEDS: carvediloL 25 MG TABLET PO SCH (09:20)
[2021-03-05] MEDS: Folic Acid 1 MG TABLET PO SCH (09:21)
[2021-03-05] MEDS: *HR* Ticagrelor 90 MG TABLET PO SCH (09:22)
[2021-03-05] MEDS: OWN INSULIN PUMP SQ SCH (09:23)
[2021-03-06] MEDS ORDERED: Vitamin B Complex/Vit C/Vit E 1 EACH TABLET PO SCH (09:00)
== END 2021-03-05 12:58 | disposition home or self-care (01) ==
LOC: 2ANU 15:10 → EMEROOARM 15:10 → SUATTDRO 17:22 → 2ANU 18:23
PROVIDERS: ADMIT Internal Medicine; ATTEND Internal Medicine

== ENCOUNTER 2021-05-02 16:57 | Inpatient (IN) ==
[2021-05-02] MEDS ORDERED: 0.9 % Sodium Chloride 1,000 ML IVC ONE (17:53)
[2021-05-02 18:08] LABS: Basophils % 0.5 %; Eosinophils # 0.1 K/mcL (0.0-0.6); Eosinophils % 2.3 %; Hematocrit 29.3 % (37.5-50.1); Immature Granulocytes % 0.5 % (0-4); Lymphocytes # 1.1 K/mcL (0.6-4.6); Lymphocytes % 18.2 %; Mean Corpuscular HGB Conc 34.1 g/dL (31.6-35.5); Mean Corpuscular Hemoglobin 29.8 pg (28.0-33.3); Mean Corpuscular Volume 87.2 fL (83.0-100.0); Mean Platelet Volume 8.7 fL (9.4-12.4); Monocytes # 0.6 K/mcL (0.0-1.3); Monocytes % 9.4 %; Neutrophils # 4.3 K/mcL (1.6-8.9); Platelet Count 310 K/mcL (140-400); Red Blood Count 3.36 M/mcL (4.19-5.50); Red Cell Distribution Width 12.9 % (11.5-14.5); Segmented Neutrophils % 69.1 %; White Blood Count 6.2 K/mcL (4.3-11.1)
[2021-05-02 18:24] LABS: Prothrombin Time 11.8 Seconds (9.4-12.1)
[2021-05-02 18:26] LABS: Activated Partial Thrombo Time 28.1 Seconds (26.0-36.0)
[2021-05-02 18:34] LABS: Alanine Aminotransferase 17 Units/L (7-52); Albumin 3.9 g/dL (3.5-5.7); Albumin/Globulin Ratio 1.8 (1.1-2.2); Alkaline Phosphatase 81 Units/L (34-104); Aspartate Amino Transferase 18 Units/L (13-39); BUN/Creatinine Ratio 10 (6-26); Bilirubin,Total 0.4 mg/dL (0.3-1.0); Blood Urea Nitrogen 39 mg/dL (8-23); Calcium 9.1 mg/dL (8.6-10.3); Carbon Dioxide 21 mEq/L (23-29); Chloride 104 mEq/L (98-107); Creatine Kinase 75 Units/L (30-223); Globulin 2.2 g/dL (2.4-3.5); Glucose 155 mg/dL (70-105); Osmolality,Calculated 293 (280-300); Potassium 4.5 mEq/L (3.5-5.1); Sodium 135 mEq/L (136-145); Total Protein 6.1 g/dL (6.4-8.9); Troponin I < 0.03 ng/mL (< 0.04); eGFR For African Americans 19 (> 60); eGFR For Non-African Americans 16 (> 60)
[2021-05-02] MEDS ORDERED: Ondansetron 4 MG/2 ML VIAL IVP PRN (21:57)
[2021-05-02] MEDS ORDERED: Naloxone 0.4 MG/ML INJ IVP PRN (21:57)
[2021-05-02] MEDS ORDERED: 0.9 % Sodium Chloride 1,000 ML IVC SCH (22:00)
[2021-05-02] MEDS ORDERED: *HR* Dextrose 50 % in Water (Vial) 50 ML VIAL IVP PRN (22:07)
[2021-05-02] MEDS ORDERED: D5% in Water 1,000 ML IVC PRN (22:07)
[2021-05-02] MEDS ORDERED: Dextrose Gel 15 GM/37.5 ML TUBE PO PRN ×2 (22:07)
[2021-05-02 22:36] LABS: Clarity,Urine Clear (Clear); Color,Urine LIGHT YELLOW (Yellow); Glucose,Urine (UA) 200 mg/dL (Normal); Protein,Urine >=300 mg/dL (Neg-Trace)
[2021-05-02 22:37] LABS: Bilirubin,Urine Negative (Negative); Blood,Urine Negative (Negative); Ketones,Urine Negative (Negative); Leukocyte Esterase,Urine Negative (Negative); Nitrite,Urine Negative (Negative); PH,Urine 6.5 pH Units (5.0-8.0); Specific Gravity,Urine 1.013 (1.010-1.025); Urobilinogen,Urine Normal (Normal)
[2021-05-02 22:38] LABS: Mucus,Urine Few per lpf (None-Few); RBC,Urine 0-3 per hpf (0-3); WBC,Urine 0-3 per hpf (0-3)
[2021-05-03] MEDS: Insulin LISPRO 300 UNITS/3 ML VIAL SUBQ SCH ×5 (00:16→20:27)
[2021-05-03 05:38] LABS: Hematocrit 25.6 % (37.5-50.1); Hemoglobin 8.7 g/dL (12.9-16.9); Mean Corpuscular Hemoglobin 29.6 pg (28.0-33.3); Mean Corpuscular Volume 87.1 fL (83.0-100.0); Mean Platelet Volume 8.8 fL (9.4-12.4); Platelet Count 229 K/mcL (140-400); Red Blood Count 2.94 M/mcL (4.19-5.50); Red Cell Distribution Width 12.8 % (11.5-14.5); White Blood Count 5.7 K/mcL (4.3-11.1)
[2021-05-03 05:46] LABS: Prothrombin Time 11.6 Seconds (9.4-12.1)
[2021-05-03 05:48] LABS: Activated Partial Thrombo Time 26.2 Seconds (26.0-36.0)
[2021-05-03 05:59] LABS: Magnesium 1.5 mg/dL (1.6-2.6); Potassium 4.4 mEq/L (3.5-5.1)
[2021-05-03 06:01] LABS: % Iron Saturation 13 % (20-55); Iron 32 mcg/dL (65-175); Transferrin 182 mg/dL (203-362)
[2021-05-03 06:19] LABS: Ferritin 58 ng/mL (20-250)
[2021-05-03 06:25] LABS: Folate > 22.3 ng/mL (3.0-16.0); Vitamin B12 385 pg/mL (250-1100)
[2021-05-03 06:27] LABS: Estimated Average Glucose 197 mg/dl; Hemoglobin A1C 8.5 %
[2021-05-03] MEDS ORDERED: 0.9 % Sodium Chloride 1,000 ML IVC SCH (10:44)
[2021-05-03] MEDS ORDERED: Acetaminophen 325 MG TABLET PO PRN (15:40)
[2021-05-03] MEDS ORDERED: Artificial Tears SOLN 15 ML BOTTLE BOTH EYES PRN (15:40)
[2021-05-03] MEDS ORDERED: Nitroglycerin 0.4 MG TAB.SUBL SL PRN (15:40)
[2021-05-03] MEDS: Loratadine 10 MG TABLET PO SCH (15:42)
[2021-05-03] MEDS: carvediloL 6.25 MG TABLET PO SCH (19:00)
[2021-05-03] MEDS: Folic Acid 1 MG TABLET PO SCH (20:21)
[2021-05-03] MEDS: *HR* Ticagrelor 90 MG TABLET PO SCH (20:21)
[2021-05-03] MEDS: Acyclovir 200 MG CAPSULE PO SCH (20:22)
[2021-05-04] MEDS ORDERED: *HR* Metoprolol 5 MG/5 ML VIAL IVP ONE (00:10)
[2021-05-04] MEDS ORDERED: NIFEdipine XL (24 HR) 30 MG TAB.ER.24 PO SCH (01:30)
[2021-05-04 06:44] LABS: Hematocrit 27.6 % (37.5-50.1); Hemoglobin 9.3 g/dL (12.9-16.9); Mean Corpuscular HGB Conc 33.7 g/dL (31.6-35.5); Mean Corpuscular Hemoglobin 29.4 pg (28.0-33.3); Mean Corpuscular Volume 87.3 fL (83.0-100.0); Mean Platelet Volume 8.7 fL (9.4-12.4); Platelet Count 218 K/mcL (140-400); Red Blood Count 3.16 M/mcL (4.19-5.50); Red Cell Distribution Width 12.7 % (11.5-14.5); White Blood Count 7.8 K/mcL (4.3-11.1)
[2021-05-04 07:02] LABS: Calcium 8.5 mg/dL (8.6-10.3); Potassium 4.1 mEq/L (3.5-5.1)
[2021-05-04] MEDS: Folic Acid 1 MG TABLET PO SCH ×2 (07:30→19:54)
[2021-05-04] MEDS: carvediloL 6.25 MG TABLET PO SCH ×3 (07:30→18:12)
[2021-05-04] MEDS: Acyclovir 200 MG CAPSULE PO SCH ×2 (07:30→19:52)
[2021-05-04] MEDS: Aspirin 81 MG TAB.CHEW PO SCH (07:30)
[2021-05-04] MEDS: Loratadine 10 MG TABLET PO SCH (07:30)
[2021-05-04] MEDS: *HR* Ticagrelor 90 MG TABLET PO SCH ×2 (07:31→19:54)
[2021-05-04] MEDS: Insulin LISPRO 300 UNITS/3 ML VIAL SUBQ SCH ×4 (07:33→20:08)
[2021-05-04] MEDS: Acetaminophen 325 MG TABLET PO PRN ×2 (07:44→18:11)
[2021-05-04] MEDS ORDERED: lisinopriL 20 MG TABLET PO SCH (09:00)
[2021-05-04] MEDS ORDERED: 0.9 % Sodium Chloride 1,000 ML IVC SCH (11:15)
[2021-05-04] MEDS ORDERED: 0.9 % Sodium Chloride 1,000 ML ONE (11:31)
[2021-05-04] MEDS: Pyridostigmine Br 60 MG TABLET PO SCH (16:32)
[2021-05-04] MEDS: NIFEdipine XL (24 HR) 30 MG TAB.ER.24 PO SCH ×2 (19:53→19:55)
[2021-05-05 03:15] LABS: Calcium 8.4 mg/dL (8.6-10.3); Magnesium 1.3 mg/dL (1.6-2.6); Potassium 3.8 mEq/L (3.5-5.1)
[2021-05-05] MEDS: Pyridostigmine Br 60 MG TABLET PO SCH ×2 (05:11→15:36)
[2021-05-05] MEDS: lisinopriL 20 MG TABLET PO SCH (08:13)
[2021-05-05] MEDS: carvediloL 6.25 MG TABLET PO SCH ×2 (08:14→15:36)
[2021-05-05] MEDS: Aspirin 81 MG TAB.CHEW PO SCH (08:14)
[2021-05-05] MEDS: *HR* Ticagrelor 90 MG TABLET PO SCH ×2 (08:14→20:44)
[2021-05-05] MEDS: Acyclovir 200 MG CAPSULE PO SCH ×2 (08:14→20:44)
[2021-05-05] MEDS: Magnesium Oxide 400 MG TABLET PO SCH (08:15)
[2021-05-05] MEDS: Loratadine 10 MG TABLET PO SCH (08:15)
[2021-05-05] MEDS: Folic Acid 1 MG TABLET PO SCH ×2 (08:15→20:44)
[2021-05-05] MEDS: Insulin LISPRO 300 UNITS/3 ML VIAL SUBQ SCH ×4 (08:18→20:50)
[2021-05-05] MEDS ORDERED: 0.9 % Sodium Chloride 1,000 ML IVC SCH (11:45)
[2021-05-05 15:08] LABS: Sodium, Urine 62.7 mEq/L
[2021-05-05] MEDS: hydrALAZINE 25 MG TABLET PO SCH ×2 (15:36→23:33)
[2021-05-05] MEDS: NIFEdipine XL (24 HR) 30 MG TAB.ER.24 PO SCH (20:44)
[2021-05-05] MEDS: Acetaminophen 325 MG TABLET PO PRN (20:46)
[2021-05-05] MEDS ORDERED: Insulin DETEMIR 100 UNIT/ML X5UNITS SUBQ SCH (21:00)
[2021-05-06 01:17] LABS: Hematocrit 28.8 % (37.5-50.1); Hemoglobin 9.4 g/dL (12.9-16.9); Mean Corpuscular HGB Conc 32.6 g/dL (31.6-35.5); Mean Corpuscular Hemoglobin 28.6 pg (28.0-33.3); Mean Corpuscular Volume 87.5 fL (83.0-100.0); Mean Platelet Volume 8.6 fL (9.4-12.4); Platelet Count 237 K/mcL (140-400); Red Blood Count 3.29 M/mcL (4.19-5.50); Red Cell Distribution Width 12.9 % (11.5-14.5); White Blood Count 6.9 K/mcL (4.3-11.1)
[2021-05-06 01:41] LABS: Uric Acid 6.3 mg/dL (2.3-7.6)
[2021-05-06 01:46] LABS: Calcium 8.4 mg/dL (8.6-10.3); Potassium 3.8 mEq/L (3.5-5.1)
[2021-05-06] MEDS ORDERED: Melatonin 3 MG TABLET PO ONE (01:58)
[2021-05-06 02:21] LABS: Hepatitis B Surface Antigen Nonreactive (Nonreactive)
[2021-05-06 02:50] LABS: Hepatitis B Core IgM Nonreactive (Nonreactive)
[2021-05-06 02:51] LABS: Hepatitis C Virus Antibody Nonreactive (Nonreactive)
[2021-05-06 02:52] LABS: Hepatitis A Antibody IgM Nonreactive (Nonreactive)
[2021-05-06] MEDS: Pyridostigmine Br 60 MG TABLET PO SCH ×2 (05:35→15:45)
[2021-05-06] MEDS: Insulin LISPRO 300 UNITS/3 ML VIAL SUBQ SCH ×4 (07:33→21:12)
[2021-05-06] MEDS: Aspirin 81 MG TAB.CHEW PO SCH (09:43)
[2021-05-06] MEDS: hydrALAZINE 25 MG TABLET PO SCH ×2 (09:44→15:46)
[2021-05-06] MEDS: lisinopriL 20 MG TABLET PO SCH (09:44)
[2021-05-06] MEDS: Acyclovir 200 MG CAPSULE PO SCH ×2 (09:45→20:27)
[2021-05-06] MEDS: Magnesium Oxide 400 MG TABLET PO SCH (09:45)
[2021-05-06] MEDS: carvediloL 6.25 MG TABLET PO SCH ×2 (09:45→17:14)
[2021-05-06] MEDS: Loratadine 10 MG TABLET PO SCH (09:45)
[2021-05-06] MEDS: *HR* Ticagrelor 90 MG TABLET PO SCH ×2 (09:46→20:27)
[2021-05-06] MEDS: Folic Acid 1 MG TABLET PO SCH ×2 (09:46→20:29)
[2021-05-06] MEDS ORDERED: hydrALAZINE 25 MG TABLET PO SCH (16:00)
[2021-05-06] MEDS: NIFEdipine XL (24 HR) 30 MG TAB.ER.24 PO SCH (20:27)
[2021-05-06] MEDS: Insulin DETEMIR 100 UNIT/ML X5UNITS SUBQ SCH (21:20)
[2021-05-07] MEDS: hydrALAZINE 25 MG TABLET PO SCH ×3 (00:35→17:19)
[2021-05-07] MEDS: Acetaminophen 325 MG TABLET PO PRN ×2 (00:35→19:34)
[2021-05-07] MEDS: Pyridostigmine Br 60 MG TABLET PO SCH ×2 (04:37→17:19)
[2021-05-07 06:15] LABS: Basophils % 0.3 %; Eosinophils # 0.2 K/mcL (0.0-0.6); Eosinophils % 2.7 %; Hematocrit 28.5 % (37.5-50.1); Hemoglobin 9.3 g/dL (12.9-16.9); Immature Granulocytes % 0.2 % (0-4); Lymphocytes # 1.1 K/mcL (0.6-4.6); Lymphocytes % 17.6 %; Mean Corpuscular HGB Conc 32.6 g/dL (31.6-35.5); Mean Corpuscular Hemoglobin 28.4 pg (28.0-33.3); Mean Corpuscular Volume 87.2 fL (83.0-100.0); Mean Platelet Volume 8.8 fL (9.4-12.4); Monocytes # 0.6 K/mcL (0.0-1.3); Monocytes % 9.7 %; Neutrophils # 4.3 K/mcL (1.6-8.9); Platelet Count 233 K/mcL (140-400); Red Blood Count 3.27 M/mcL (4.19-5.50); Red Cell Distribution Width 12.9 % (11.5-14.5); Segmented Neutrophils % 69.5 %; White Blood Count 6.2 K/mcL (4.3-11.1)
[2021-05-07 06:32] LABS: Calcium 8.4 mg/dL (8.6-10.3); Potassium 3.7 mEq/L (3.5-5.1)
[2021-05-07] MEDS: Insulin LISPRO 300 UNITS/3 ML VIAL SUBQ SCH ×4 (07:54→22:00)
[2021-05-07] MEDS: Magnesium Oxide 400 MG TABLET PO SCH (07:55)
[2021-05-07] MEDS: Folic Acid 1 MG TABLET PO SCH ×2 (07:55→20:13)
[2021-05-07] MEDS: Acyclovir 200 MG CAPSULE PO SCH ×2 (07:55→20:14)
[2021-05-07] MEDS: Aspirin 81 MG TAB.CHEW PO SCH (07:56)
[2021-05-07] MEDS: lisinopriL 20 MG TABLET PO SCH (07:56)
[2021-05-07] MEDS: *HR* Ticagrelor 90 MG TABLET PO SCH ×2 (07:56→20:13)
[2021-05-07] MEDS: Loratadine 10 MG TABLET PO SCH (07:57)
[2021-05-07] MEDS: carvediloL 6.25 MG TABLET PO SCH ×2 (07:57→17:20)
[2021-05-07] MEDS: Lactobacillus 1 EACH CAP.SPRINK PO SCH (12:14)
[2021-05-07] MEDS ORDERED: hydrALAZINE 25 MG TABLET PO SCH (16:00)
[2021-05-07] MEDS: NIFEdipine XL (24 HR) 30 MG TAB.ER.24 PO SCH (20:14)
[2021-05-07] MEDS: Insulin DETEMIR 100 UNIT/ML X5UNITS SUBQ SCH ×2 (20:15→22:00)
[2021-05-08] MEDS ORDERED: Melatonin 3 MG TABLET PO SCH (01:00)
[2021-05-08] MEDS: hydrALAZINE 25 MG TABLET PO SCH ×2 (01:05→11:13)
[2021-05-08 02:48] VITALS: O2SAT 98
[2021-05-08] MEDS: Pyridostigmine Br 60 MG TABLET PO SCH (04:02)
[2021-05-08 06:50] LABS: Basophils % 0.5 %; Eosinophils # 0.2 K/mcL (0.0-0.6); Hematocrit 28.1 % (37.5-50.1); Hemoglobin 9.2 g/dL (12.9-16.9); Immature Granulocytes % 0.3 % (0-4); Lymphocytes # 1.2 K/mcL (0.6-4.6); Lymphocytes % 19.8 %; Mean Corpuscular HGB Conc 32.7 g/dL (31.6-35.5); Mean Corpuscular Hemoglobin 28.8 pg (28.0-33.3); Mean Corpuscular Volume 87.8 fL (83.0-100.0); Mean Platelet Volume 8.8 fL (9.4-12.4); Monocytes # 0.6 K/mcL (0.0-1.3); Monocytes % 9.8 %; Platelet Count 223 K/mcL (140-400); Segmented Neutrophils % 66.6 %; White Blood Count 6.1 K/mcL (4.3-11.1)
[2021-05-08 07:13] LABS: Calcium 8.4 mg/dL (8.6-10.3); Potassium 3.6 mEq/L (3.5-5.1)
[2021-05-08] MEDS: Insulin LISPRO 300 UNITS/3 ML VIAL SUBQ SCH ×2 (08:15→11:20)
[2021-05-08 10:39] VITALS: BP 156/96; PULSE 84; TEMP 98
[2021-05-08] MEDS: Lactobacillus 1 EACH CAP.SPRINK PO SCH (11:12)
[2021-05-08] MEDS: *HR* Ticagrelor 90 MG TABLET PO SCH (11:12)
[2021-05-08] MEDS: Folic Acid 1 MG TABLET PO SCH (11:12)
[2021-05-08] MEDS: lisinopriL 20 MG TABLET PO SCH (11:12)
[2021-05-08] MEDS: Acyclovir 200 MG CAPSULE PO SCH (11:13)
[2021-05-08] MEDS: carvediloL 6.25 MG TABLET PO SCH (11:13)
[2021-05-08] MEDS: Aspirin 81 MG TAB.CHEW PO SCH (11:13)
[2021-05-08] MEDS: Magnesium Oxide 400 MG TABLET PO SCH (11:13)
[2021-05-08] MEDS: Loratadine 10 MG TABLET PO SCH (11:13)
== END 2021-05-08 14:06 | disposition home or self-care (01) | DRG 312 ==
LOC: EMEROOARM 16:57 → 3ANU 16:57 → SUATTDRO 20:18 → 3ANU 22:57 → SUATTDRO 05-04 18:40
PROVIDERS: ADMIT Student in an Organized Health Care Education/Training Program; ATTEND Internal Medicine

== ENCOUNTER 2021-05-11 13:11 | Observation (INO) ==
[2021-05-11] MEDS ORDERED: 0.9 % Sodium Chloride 1,000 ML IVC ONE (15:07)
[2021-05-11 15:51] LABS: Basophils % 0.5 %; Eosinophils # 0.2 K/mcL (0.0-0.6); Eosinophils % 2.6 %; Hematocrit 24.5 % (37.5-50.1); Hemoglobin 8.3 g/dL (12.9-16.9); Immature Granulocytes % 0.3 % (0-4); Lymphocytes # 0.8 K/mcL (0.6-4.6); Lymphocytes % 13.4 %; Mean Corpuscular HGB Conc 33.9 g/dL (31.6-35.5); Mean Corpuscular Hemoglobin 29.4 pg (28.0-33.3); Mean Corpuscular Volume 86.9 fL (83.0-100.0); Mean Platelet Volume 9.2 fL (9.4-12.4); Monocytes # 0.5 K/mcL (0.0-1.3); Monocytes % 7.3 %; Neutrophils # 4.7 K/mcL (1.6-8.9); Platelet Count 257 K/mcL (140-400); Red Blood Count 2.82 M/mcL (4.19-5.50); Red Cell Distribution Width 13.2 % (11.5-14.5); Segmented Neutrophils % 75.9 %; White Blood Count 6.1 K/mcL (4.3-11.1)
[2021-05-11 16:08] LABS: BUN/Creatinine Ratio 11 (6-26); Blood Urea Nitrogen 48 mg/dL (8-23); Calcium 8.6 mg/dL (8.6-10.3); Carbon Dioxide 18 mEq/L (23-29); Chloride 108 mEq/L (98-107); Glucose 294 mg/dL (70-105); Osmolality,Calculated 301 (280-300); Potassium 4.4 mEq/L (3.5-5.1); Sodium 134 mEq/L (136-145); Troponin I < 0.03 ng/mL (< 0.04); eGFR For African Americans 17 (> 60); eGFR For Non-African Americans 14 (> 60)
[2021-05-11] MEDS ORDERED: Ondansetron 4 MG/2 ML VIAL IVP PRN (18:14)
[2021-05-11] MEDS ORDERED: Melatonin 3 MG TABLET PO PRN (18:14)
[2021-05-11] MEDS ORDERED: Naloxone 0.4 MG/ML INJ IVP PRN (18:14)
[2021-05-11] MEDS ORDERED: Acetaminophen 325 MG TABLET PO PRN (18:14)
[2021-05-11] MEDS ORDERED: *HR* HYDROcodone/Acet 5/325 mg TABLET PO PRN (18:14)
[2021-05-11] MEDS: Ringers Solution, Lactated 1,000 ML IVC SCH (18:40)
[2021-05-11 19:27] LABS: Prothrombin Time 11.5 Seconds (9.4-12.1)
[2021-05-11] MEDS ORDERED: *HR* Dextrose 50 % in Water (Vial) 50 ML VIAL IVP PRN (20:32)
[2021-05-11] MEDS ORDERED: D5% in Water 1,000 ML IVC PRN (20:32)
[2021-05-11] MEDS ORDERED: Dextrose Gel 15 GM/37.5 ML TUBE PO PRN ×2 (20:32)
[2021-05-12 00:46] LABS: Basophils % 0.3 %; Eosinophils # 0.2 K/mcL (0.0-0.6); Eosinophils % 3.3 %; Hematocrit 24.8 % (37.5-50.1); Hemoglobin 8.1 g/dL (12.9-16.9); Immature Granulocytes % 0.5 % (0-4); Lymphocytes # 1.4 K/mcL (0.6-4.6); Lymphocytes % 22.5 %; Mean Corpuscular HGB Conc 32.7 g/dL (31.6-35.5); Mean Corpuscular Hemoglobin 28.5 pg (28.0-33.3); Mean Corpuscular Volume 87.3 fL (83.0-100.0); Mean Platelet Volume 9.2 fL (9.4-12.4); Monocytes # 0.6 K/mcL (0.0-1.3); Monocytes % 8.7 %; Neutrophils # 4.1 K/mcL (1.6-8.9); Platelet Count 217 K/mcL (140-400); Red Blood Count 2.84 M/mcL (4.19-5.50); Red Cell Distribution Width 13.2 % (11.5-14.5); Segmented Neutrophils % 64.7 %; White Blood Count 6.3 K/mcL (4.3-11.1)
[2021-05-12 01:14] LABS: Calcium 8.3 mg/dL (8.6-10.3); Magnesium 1.6 mg/dL (1.6-2.6); Phosphorous 3.3 mg/dL (2.7-4.5); Potassium 3.9 mEq/L (3.5-5.1)
[2021-05-12 02:20] LABS: Bilirubin,Urine Negative (Negative); Blood,Urine Negative (Negative); Clarity,Urine Clear (Clear); Color,Urine Colorless (Yellow); Glucose,Urine (UA) Normal (Normal); Hyaline Casts,Urine Few per lpf (None Seen); Ketones,Urine Negative (Negative); Leukocyte Esterase,Urine Negative (Negative); Mucus,Urine Few per lpf (None-Few); Nitrite,Urine Negative (Negative); PH,Urine 6.5 pH Units (5.0-8.0); Protein,Urine 200 mg/dL (Neg-Trace); RBC,Urine 0-3 per hpf (0-3); Urobilinogen,Urine Normal (Normal); WBC,Urine 0-3 per hpf (0-3)
[2021-05-12] MEDS ORDERED: *HR* Heparin 5,000 UNIT/ML VIAL SQ SCH (06:00)
[2021-05-12] MEDS: Ringers Solution, Lactated 1,000 ML IVC SCH (08:31)
[2021-05-12] MEDS ORDERED: Aspirin 81 MG TAB.CHEW PO SCH (13:45)
[2021-05-12 14:28] VITALS: BP 186/90; PULSE 87; TEMP 99; O2SAT 97
[2021-05-12] MEDS ORDERED: Artificial Tears SOLN 15 ML BOTTLE BOTH EYES PRN (15:11)
[2021-05-12] MEDS ORDERED: carvediloL 6.25 MG TABLET PO SCH (17:00)
[2021-05-12] MEDS ORDERED: Pyridostigmine Br 60 MG TABLET PO SCH (18:00)
[2021-05-12] MEDS ORDERED: *HR* Ticagrelor 90 MG TABLET PO SCH (21:00)
== END 2021-05-12 16:06 | disposition left against medical advice (07) ==
LOC: 3BNU 13:11 → EMEROOARM 13:11 → SUATTDRO 17:29 → 3BNU 18:10
PROVIDERS: ADMIT Internal Medicine; ATTEND Internal Medicine

== ENCOUNTER 2021-06-03 18:44 | Inpatient (IN) ==
[2021-06-03 20:46] LABS: Bilirubin,Urine Negative (Negative); Blood,Urine Small (Negative); Clarity,Urine Clear (Clear); Color,Urine Light-Yellow (Yellow); Glucose,Urine (UA) 500 mg/dL (Normal); Ketones,Urine Negative (Negative); Leukocyte Esterase,Urine Negative (Negative); Nitrite,Urine Negative (Negative); PH,Urine 7.5 pH Units (5.0-8.0); Protein,Urine >=600 mg/dL (Neg-Trace); Specific Gravity,Urine 1.014 (1.010-1.025); Urobilinogen,Urine Normal (Normal); WBC,Urine 0-3 per hpf (0-3)
[2021-06-03 20:50] LABS: Basophils % 0.5 %; Eosinophils # 0.2 K/mcL (0.0-0.6); Eosinophils % 2.9 %; Hematocrit 28.8 % (37.5-50.1); Hemoglobin 9.5 g/dL (12.9-16.9); Immature Granulocytes % 0.5 % (0-4); Lymphocytes # 1.3 K/mcL (0.6-4.6); Lymphocytes % 17.3 %; Mean Corpuscular Hemoglobin 28.9 pg (28.0-33.3); Mean Corpuscular Volume 87.5 fL (83.0-100.0); Mean Platelet Volume 8.7 fL (9.4-12.4); Monocytes # 0.7 K/mcL (0.0-1.3); Monocytes % 8.8 %; Neutrophils # 5.1 K/mcL (1.6-8.9); Platelet Count 226 K/mcL (140-400); Red Blood Count 3.29 M/mcL (4.19-5.50); Red Cell Distribution Width 12.9 % (11.5-14.5); White Blood Count 7.4 K/mcL (4.3-11.1)
[2021-06-03 20:51] LABS: VBG Ionized Calcium 1.06 mmol/L (1.15-1.35)
[2021-06-03] MEDS ORDERED: 0.9 % Sodium Chloride 1,000 ML IVC ONE (21:01)
[2021-06-03] MEDS ORDERED: Morphine Sulfate 2 MG/ML SYRINGE IVP ONE (22:01)
[2021-06-03 22:09] LABS: Adenovirus Not Detected (Not Detect); Bordetella Pertussis Not Detected (Not Detect); Chlamydophila pneumoniae Not Detected (Not Detect); Coronavirus 229E Not Detected (Not Detect); Coronavirus HKU1 Not Detected (Not Detect); Coronavirus NL63 Not Detected (Not Detect); Coronavirus OC43 Not Detected (Not Detect); Human Metapneumovirus Not Detected (Not Detect); Human Rhinovirus/Enterovirus Not Detected (Not Detect); Influenza A Subtype 2009 H1 Not Detected (Not Detect); Influenza B Not Detected (Not Detect); Mycoplasma pneumoniae Not Detected (Not Detect); Parainfluenza Virus 1 Not Detected (Not Detect); Parainfluenza Virus 2 Not Detected (Not Detect); Parainfluenza Virus 3 Not Detected (Not Detect); Parainfluenza Virus 4 Not Detected (Not Detect); Respiratory Syncytial Virus Not Detected (Not Detect); SARS-CoV-2 Not Detected (Not Detect)
[2021-06-03 22:17] LABS: Thyroid Stimulating Hormone 1.031 mcIU/mL (0.340-5.600); Troponin I < 0.03 ng/mL (< 0.04)
[2021-06-03] MEDS: niCARdipine 20 MG/200 ML MLS IVC SCH (22:39)
[2021-06-03 22:45] LABS: Alanine Aminotransferase 11 Units/L (7-52); Albumin 3.3 g/dL (3.5-5.7); Albumin/Globulin Ratio 1.5 (1.1-2.2); Alkaline Phosphatase 84 Units/L (34-104); Aspartate Amino Transferase 20 Units/L (13-39); BUN/Creatinine Ratio 9 (6-26); Bilirubin,Direct 0.1 mg/dL (0.0-0.2); Bilirubin,Indirect 0.4 mg/dL (0.0-1.0); Bilirubin,Total 0.5 mg/dL (0.3-1.0); Blood Urea Nitrogen 35 mg/dL (8-23); Calcium 8.7 mg/dL (8.6-10.3); Carbon Dioxide 20 mEq/L (23-29); Chloride 104 mEq/L (98-107); Creatine Kinase 81 Units/L (30-223); Globulin 2.2 g/dL (2.4-3.5); Glucose 264 mg/dL (70-105); Lipase 21 Units/L (11-82); Magnesium 1.6 mg/dL (1.6-2.6); Osmolality,Calculated 303 (280-300); Potassium 4.4 mEq/L (3.5-5.1); Sodium 138 mEq/L (136-145); Total Protein 5.5 g/dL (6.4-8.9); eGFR For African Americans 19 (> 60); eGFR For Non-African Americans 16 (> 60)
[2021-06-03] MEDS ORDERED: Morphine Sulfate 2 MG/ML SYRINGE IVP STA (23:45)
[2021-06-04 00:52] LABS: Prothrombin Time 11.2 Seconds (9.4-12.1)
[2021-06-04] MEDS ORDERED: Naloxone 0.4 MG/ML INJ IVP PRN (01:16)
[2021-06-04] MEDS ORDERED: *HR* Dextrose 50 % in Water (Vial) 50 ML VIAL IVP PRN (01:19)
[2021-06-04] MEDS ORDERED: D5% in Water 1,000 ML IVC PRN (01:19)
[2021-06-04] MEDS ORDERED: Dextrose Gel 15 GM/37.5 ML TUBE PO PRN ×2 (01:19)
[2021-06-04] MEDS ORDERED: Lidocaine 5% OINT 35 APPL/35.44 GM TUBE TP ONE (01:21)
[2021-06-04] MEDS ORDERED: Prochlorperazine 10 MG/2 ML VIAL IVP ONE (02:36)
[2021-06-04 02:43] LABS: Hematocrit 28.8 % (37.5-50.1); Hemoglobin 9.6 g/dL (12.9-16.9); Mean Corpuscular HGB Conc 33.3 g/dL (31.6-35.5); Mean Corpuscular Hemoglobin 28.9 pg (28.0-33.3); Mean Corpuscular Volume 86.7 fL (83.0-100.0); Mean Platelet Volume 8.7 fL (9.4-12.4); Platelet Count 216 K/mcL (140-400); Red Blood Count 3.32 M/mcL (4.19-5.50); Red Cell Distribution Width 12.8 % (11.5-14.5); White Blood Count 8.5 K/mcL (4.3-11.1)
[2021-06-04 03:07] LABS: Albumin 3.2 g/dL (3.5-5.7); Albumin/Globulin Ratio 1.4 (1.1-2.2); Bilirubin,Total 0.4 mg/dL (0.3-1.0); Calcium 8.4 mg/dL (8.6-10.3); Globulin 2.3 g/dL (2.4-3.5); Potassium 3.7 mEq/L (3.5-5.1); Total Protein 5.5 g/dL (6.4-8.9)
[2021-06-04] MEDS: Insulin LISPRO 300 UNITS/3 ML VIAL SUBQ SCH ×4 (06:24→23:25)
[2021-06-04] MEDS: *HR* Heparin 5,000 UNIT/ML VIAL SQ SCH ×2 (06:24→17:00)
[2021-06-04] MEDS: niCARdipine 20 MG/200 ML MLS IVC SCH ×7 (06:33→22:55)
[2021-06-04] MEDS ORDERED: lisinopriL 20 MG TABLET PO SCH (11:45)
[2021-06-04] MEDS: hydrALAZINE 25 MG TABLET PO SCH ×2 (15:58→23:28)
[2021-06-04] MEDS: carvediloL 6.25 MG TABLET PO SCH (15:58)
[2021-06-04 17:37] LABS: Protein/Creatinine Ratio,Urine 12.91 mg/mg (0.00-0.20); Sodium, Urine 73.9 mEq/L
[2021-06-04] MEDS: Ranolazine 500 MG TAB.ER.12H PO SCH (20:09)
[2021-06-04] MEDS: Folic Acid 1 MG TABLET PO SCH (20:10)
[2021-06-04] MEDS: *HR* Ticagrelor 90 MG TABLET PO SCH (20:11)
[2021-06-04] MEDS ORDERED: NIFEdipine XL (24 HR) 30 MG TAB.ER.24 PO SCH (21:00)
[2021-06-05] MEDS: niCARdipine 20 MG/200 ML MLS IVC SCH ×2 (03:22→03:33)
[2021-06-05 05:41] LABS: Basophils % 0.4 %; Eosinophils # 0.2 K/mcL (0.0-0.6); Eosinophils % 2.9 %; Hematocrit 27.9 % (37.5-50.1); Hemoglobin 9.3 g/dL (12.9-16.9); Immature Granulocytes % 0.6 % (0-4); Lymphocytes # 1.7 K/mcL (0.6-4.6); Mean Corpuscular HGB Conc 33.3 g/dL (31.6-35.5); Mean Corpuscular Hemoglobin 28.6 pg (28.0-33.3); Mean Corpuscular Volume 85.8 fL (83.0-100.0); Mean Platelet Volume 8.9 fL (9.4-12.4); Monocytes # 0.7 K/mcL (0.0-1.3); Monocytes % 9.4 %; Neutrophils # 4.5 K/mcL (1.6-8.9); Platelet Count 267 K/mcL (140-400); Red Blood Count 3.25 M/mcL (4.19-5.50); Red Cell Distribution Width 12.8 % (11.5-14.5); Segmented Neutrophils % 62.7 %; White Blood Count 7.2 K/mcL (4.3-11.1)
[2021-06-05] MEDS: Insulin LISPRO 300 UNITS/3 ML VIAL SUBQ SCH (05:42)
[2021-06-05] MEDS: *HR* Heparin 5,000 UNIT/ML VIAL SQ SCH (05:45)
[2021-06-05 06:03] LABS: Albumin 3.1 g/dL (3.5-5.7); Calcium 8.5 mg/dL (8.6-10.3); Potassium 3.3 mEq/L (3.5-5.1)
[2021-06-05] MEDS ORDERED: Potassium Chloride Elixir 20 MEQ/15 ML UDC PO ONE (08:40)
[2021-06-05] MEDS ORDERED: Aspirin 81 MG TAB.CHEW PO SCH (09:00)
[2021-06-05] MEDS: hydrALAZINE 25 MG TABLET PO SCH (09:21)
[2021-06-05] MEDS: Ranolazine 500 MG TAB.ER.12H PO SCH (09:21)
[2021-06-05] MEDS: carvediloL 6.25 MG TABLET PO SCH (09:21)
[2021-06-05] MEDS: Folic Acid 1 MG TABLET PO SCH (09:21)
[2021-06-05] MEDS: *HR* Ticagrelor 90 MG TABLET PO SCH (10:27)
[2021-06-05 11:50] VITALS: BP 132/56; PULSE 70; TEMP 98.1; O2SAT 98
== END 2021-06-05 15:30 | disposition hospice, home (50) | DRG 305 ==
LOC: ICNU 18:44 → EMEROOARM 18:44 → SUATTDRO 23:40 → OBSVTOIN 23:40 → ICNU 06-04 00:47 → CDU 06-05 04:07
PROVIDERS: ADMIT Student in an Organized Health Care Education/Training Program; ATTEND Internal Medicine

== ENCOUNTER 2021-06-13 15:15 | Inpatient (IN) ==
[2021-06-13] MEDS ORDERED: 0.9 % Sodium Chloride 1,000 ML IVC ONE (18:38)
[2021-06-13] MEDS ORDERED: Ondansetron 4 MG/2 ML VIAL IVP ONE (18:38)
[2021-06-13] MEDS ORDERED: Aspirin 325 MG TABLET PO ONE (18:41)
[2021-06-13] MEDS ORDERED: carvediloL 6.25 MG TABLET PO STA (19:07)
[2021-06-13] MEDS ORDERED: NIFEdipine XL (24 HR) 30 MG TAB.ER.24 PO ONE (19:15)
[2021-06-13 19:17] LABS: Bilirubin,Urine Negative (Negative); Blood,Urine Trace (Negative); Clarity,Urine Clear (Clear); Color,Urine Light-Yellow (Yellow); Glucose,Urine (UA) 300 mg/dL (Normal); Ketones,Urine Negative (Negative); Leukocyte Esterase,Urine Negative (Negative); Mucus,Urine Few per lpf (None-Few); Nitrite,Urine Negative (Negative); Protein,Urine >=600 mg/dL (Neg-Trace); RBC,Urine 0-3 per hpf (0-3); Specific Gravity,Urine 1.019 (1.010-1.025); Urobilinogen,Urine Normal (Normal); WBC,Urine 0-3 per hpf (0-3)
[2021-06-13 20:30] LABS: Influenza A PCR Negative (Negative); Influenza B PCR Negative (Negative); Resp. Syncytial Virus PCR Negative (Negative)
[2021-06-13 20:37] LABS: Basophils % 0.2 %; Eosinophils # 0.2 K/mcL (0.0-0.6); Eosinophils % 2.1 %; Hematocrit 29.8 % (37.5-50.1); Hemoglobin 9.7 g/dL (12.9-16.9); Immature Granulocytes % 0.3 % (0-4); Lymphocytes # 1.7 K/mcL (0.6-4.6); Lymphocytes % 17.3 %; Mean Corpuscular HGB Conc 32.6 g/dL (31.6-35.5); Mean Corpuscular Hemoglobin 28.5 pg (28.0-33.3); Mean Corpuscular Volume 87.6 fL (83.0-100.0); Mean Platelet Volume 8.9 fL (9.4-12.4); Monocytes # 0.8 K/mcL (0.0-1.3); Monocytes % 7.8 %; Neutrophils # 7.2 K/mcL (1.6-8.9); Platelet Count 277 K/mcL (140-400); Red Cell Distribution Width 13.3 % (11.5-14.5); Segmented Neutrophils % 72.3 %
[2021-06-13 20:40] LABS: SARS-CoV-2 by PCR (In House) Negative (Negative)
[2021-06-13 21:12] LABS: Albumin 3.2 g/dL (3.5-5.7); Albumin/Globulin Ratio 1.6 (1.1-2.2); Bilirubin,Total 0.3 mg/dL (0.3-1.0); Calcium 7.9 mg/dL (8.6-10.3); Potassium 3.5 mEq/L (3.5-5.1); Total Protein 5.2 g/dL (6.4-8.9); Troponin I 0.03 ng/mL (< 0.04)
[2021-06-14] MEDS ORDERED: Naloxone 0.4 MG/ML INJ IVP PRN
[2021-06-14] MEDS ORDERED: D5% in Water 1,000 ML IVC PRN (00:36)
[2021-06-14] MEDS ORDERED: Dextrose Gel 15 GM/37.5 ML TUBE PO PRN ×2 (00:36)
[2021-06-14] MEDS ORDERED: *HR* Dextrose 50 % in Water (Syg) 50 ML SYRINGE IVP PRN (00:36)
[2021-06-14] MEDS: Insulin LISPRO 300 UNITS/3 ML VIAL SUBQ SCH ×4 (03:15→17:41)
[2021-06-14] MEDS: *HR* Heparin 5,000 UNIT/ML VIAL SQ SCH ×2 (05:54→16:45)
[2021-06-14 07:22] LABS: Troponin I < 0.03 ng/mL (< 0.04)
[2021-06-14] MEDS ORDERED: hydrALAZINE 25 MG TABLET PO SCH ×2 (08:00→21:00)
[2021-06-14] MEDS ORDERED: carvediloL 6.25 MG TABLET PO SCH (08:00)
[2021-06-14] MEDS ORDERED: hydrALAZINE 25 MG TABLET PO ONE (09:27)
[2021-06-14 10:23] LABS: Creatine Kinase 107 Units/L (30-223); Uric Acid 7.4 mg/dL (2.3-7.6)
[2021-06-14 10:36] LABS: Troponin I < 0.03 ng/mL (< 0.04)
[2021-06-14] MEDS: Acetaminophen 325 MG TABLET PO PRN (12:02)
[2021-06-14] MEDS: 0.9 % Sodium Chloride 1,000 ML IVC SCH (12:03)
[2021-06-14 12:14] LABS: BUN/Creatinine Ratio 10 (6-26); Blood Urea Nitrogen 41 mg/dL (8-23); Calcium 7.6 mg/dL (8.6-10.3); Carbon Dioxide 24 mEq/L (23-29); Chloride 109 mEq/L (98-107); Glucose 139 mg/dL (70-105); Osmolality,Calculated 306 (280-300); Potassium 3.3 mEq/L (3.5-5.1); Sodium 142 mEq/L (136-145); eGFR For African Americans 17 (> 60); eGFR For Non-African Americans 14 (> 60)
[2021-06-14 13:33] LABS: Sodium, Urine 92.5 mEq/L
[2021-06-14 14:12] LABS: Creatinine,Urine 51 mg/dL; Microalbumin,Urine > 1350 mg/L; Protein/Creatinine Ratio,Urine 10.69 mg/mg (0.00-0.20)
[2021-06-14] MEDS: Isosorbide MONOnitrate (24 HR) 60 MG TAB.ER.24H PO SCH (14:50)
[2021-06-14] MEDS: hydrALAZINE 25 MG TABLET PO SCH ×2 (16:45→23:07)
[2021-06-14] MEDS: carvediloL 6.25 MG TABLET PO SCH (16:45)
[2021-06-14] MEDS: Pyridostigmine Br 60 MG TABLET PO SCH (17:43)
[2021-06-14] MEDS: NIFEdipine XL (24 HR) 30 MG TAB.ER.24 PO SCH (19:54)
[2021-06-14] MEDS: *HR* HYDROcodone/Acet 5/325 mg TABLET PO PRN (19:54)
[2021-06-14] MEDS: Ranolazine 500 MG TAB.ER.12H PO SCH (19:54)
[2021-06-14] MEDS: *HR* Ticagrelor 90 MG TABLET PO SCH (19:55)
[2021-06-14] MEDS: Folic Acid 1 MG TABLET PO SCH (19:55)
[2021-06-14] MEDS: cloNIDine HCL 0.1 MG TABLET PO SCH ×2 (19:55→20:08)
[2021-06-15] MEDS: 0.9 % Sodium Chloride 1,000 ML IVC SCH ×2 (02:27→16:32)
[2021-06-15] MEDS: Pyridostigmine Br 60 MG TABLET PO SCH ×2 (05:53→18:01)
[2021-06-15] MEDS: *HR* Heparin 5,000 UNIT/ML VIAL SQ SCH ×2 (05:53→18:01)
[2021-06-15 06:31] LABS: Basophils % 0.4 %; Eosinophils # 0.3 K/mcL (0.0-0.6); Hematocrit 23.6 % (37.5-50.1); Hemoglobin 7.9 g/dL (12.9-16.9); Immature Granulocytes % 0.5 % (0-4); Lymphocytes # 1.4 K/mcL (0.6-4.6); Lymphocytes % 16.7 %; Mean Corpuscular HGB Conc 33.5 g/dL (31.6-35.5); Mean Corpuscular Hemoglobin 29.5 pg (28.0-33.3); Mean Corpuscular Volume 88.1 fL (83.0-100.0); Mean Platelet Volume 9.1 fL (9.4-12.4); Monocytes # 0.7 K/mcL (0.0-1.3); Monocytes % 7.9 %; Neutrophils # 5.9 K/mcL (1.6-8.9); Platelet Count 255 K/mcL (140-400); Red Blood Count 2.68 M/mcL (4.19-5.50); Red Cell Distribution Width 13.3 % (11.5-14.5); Segmented Neutrophils % 71.5 %; White Blood Count 8.3 K/mcL (4.3-11.1)
[2021-06-15 06:50] LABS: Calcium 7.4 mg/dL (8.6-10.3); Magnesium 1.1 mg/dL (1.6-2.6); Potassium 3.5 mEq/L (3.5-5.1)
[2021-06-15] MEDS: Ondansetron ODT 4 MG TAB.RAPDIS SL PRN (08:51)
[2021-06-15] MEDS: Isosorbide MONOnitrate (24 HR) 60 MG TAB.ER.24H PO SCH (08:52)
[2021-06-15] MEDS: Folic Acid 1 MG TABLET PO SCH ×2 (08:52→21:10)
[2021-06-15] MEDS: hydrALAZINE 25 MG TABLET PO SCH ×2 (08:52→16:32)
[2021-06-15] MEDS: *HR* Ticagrelor 90 MG TABLET PO SCH ×2 (08:53→21:11)
[2021-06-15] MEDS: Aspirin 81 MG TAB.CHEW PO SCH (08:53)
[2021-06-15] MEDS: Ranolazine 500 MG TAB.ER.12H PO SCH ×2 (08:53→21:11)
[2021-06-15] MEDS: Insulin LISPRO 300 UNITS/3 ML VIAL SUBQ SCH ×4 (09:00→16:59)
[2021-06-15] MEDS: cloNIDine HCL 0.1 MG TABLET PO SCH ×3 (09:00→21:10)
[2021-06-15] MEDS: carvediloL 6.25 MG TABLET PO SCH ×2 (09:00→18:00)
[2021-06-15] MEDS: *HR* HYDROcodone/Acet 5/325 mg TABLET PO PRN ×3 (10:33→21:15)
[2021-06-15] MEDS ORDERED: Metoclopramide 10 MG/2 ML VIAL IVP ONE (14:58)
[2021-06-15 16:51] LABS: Albumin 2.7 g/dL (3.5-5.7); Albumin/Globulin Ratio 1.6 (1.1-2.2); Bilirubin,Indirect 0.2 mg/dL (0.0-1.0); Bilirubin,Total 0.2 mg/dL (0.3-1.0); Globulin 1.7 g/dL (2.4-3.5); Total Protein 4.4 g/dL (6.4-8.9)
[2021-06-15] MEDS: Acetaminophen 325 MG TABLET PO PRN (18:00)
[2021-06-15] MEDS ORDERED: Insulin DETEMIR 100 UNIT/ML X5UNITS SUBQ SCH ×2 (21:00)
[2021-06-15] MEDS: NIFEdipine XL (24 HR) 30 MG TAB.ER.24 PO SCH (21:11)
[2021-06-16] MEDS: hydrALAZINE 25 MG TABLET PO SCH ×4 (01:09→23:59)
[2021-06-16] MEDS: Ondansetron ODT 4 MG TAB.RAPDIS SL PRN ×2 (02:03→20:10)
[2021-06-16] MEDS: *HR* HYDROcodone/Acet 5/325 mg TABLET PO PRN ×2 (02:05→19:58)
[2021-06-16] MEDS: 0.9 % Sodium Chloride 1,000 ML IVC SCH ×2 (05:30→19:38)
[2021-06-16] MEDS: Pyridostigmine Br 60 MG TABLET PO SCH ×2 (05:30→16:16)
[2021-06-16] MEDS: *HR* Heparin 5,000 UNIT/ML VIAL SQ SCH ×2 (05:30→16:23)
[2021-06-16 06:05] LABS: Calcium 7.6 mg/dL (8.6-10.3); Magnesium 1.2 mg/dL (1.6-2.6); Potassium 3.5 mEq/L (3.5-5.1)
[2021-06-16] MEDS: Insulin LISPRO 300 UNITS/3 ML VIAL SUBQ SCH ×3 (07:56→16:26)
[2021-06-16] MEDS: Isosorbide MONOnitrate (24 HR) 60 MG TAB.ER.24H PO SCH (09:23)
[2021-06-16] MEDS: Ranolazine 500 MG TAB.ER.12H PO SCH ×2 (09:23→19:59)
[2021-06-16] MEDS: Folic Acid 1 MG TABLET PO SCH ×2 (09:24→19:58)
[2021-06-16] MEDS: Aspirin 81 MG TAB.CHEW PO SCH (09:24)
[2021-06-16] MEDS: carvediloL 6.25 MG TABLET PO SCH ×2 (09:24→16:24)
[2021-06-16] MEDS: *HR* Ticagrelor 90 MG TABLET PO SCH ×2 (09:24→19:59)
[2021-06-16] MEDS: cloNIDine HCL 0.1 MG TABLET PO SCH ×3 (09:25→19:59)
[2021-06-16] MEDS ORDERED: Morphine Sulfate 2 MG/ML SYRINGE IVP PRN (10:23)
[2021-06-16] MEDS: Nitroglycerin 0.4 MG TAB.SUBL SL PRN ×5 (11:04→12:13)
[2021-06-16] MEDS ORDERED: GI Cocktail 40 ML EACH PO ONE (13:17)
[2021-06-16] MEDS: NIFEdipine XL (24 HR) 30 MG TAB.ER.24 PO SCH (19:58)
[2021-06-16] MEDS: Insulin DETEMIR 100 UNIT/ML X5UNITS SUBQ SCH (20:05)
[2021-06-17] MEDS: Pyridostigmine Br 60 MG TABLET PO SCH (05:20)
[2021-06-17] MEDS: 0.9 % Sodium Chloride 1,000 ML IVC SCH ×2 (05:45→15:15)
[2021-06-17] MEDS: *HR* Heparin 5,000 UNIT/ML VIAL SQ SCH ×2 (05:46→16:28)
[2021-06-17] MEDS: Ondansetron ODT 4 MG TAB.RAPDIS SL PRN (05:46)
[2021-06-17] MEDS: *HR* HYDROcodone/Acet 5/325 mg TABLET PO PRN (05:46)
[2021-06-17] MEDS: Insulin LISPRO 300 UNITS/3 ML VIAL SUBQ SCH ×3 (07:37→16:32)
[2021-06-17] MEDS: Isosorbide MONOnitrate (24 HR) 60 MG TAB.ER.24H PO SCH (09:05)
[2021-06-17] MEDS: Aspirin 81 MG TAB.CHEW PO SCH (09:05)
[2021-06-17] MEDS: carvediloL 6.25 MG TABLET PO SCH ×2 (09:05→16:32)
[2021-06-17] MEDS: cloNIDine HCL 0.1 MG TABLET PO SCH ×3 (09:05→21:18)
[2021-06-17] MEDS: *HR* Ticagrelor 90 MG TABLET PO SCH ×2 (09:06→21:17)
[2021-06-17] MEDS: Folic Acid 1 MG TABLET PO SCH ×2 (09:06→21:16)
[2021-06-17] MEDS: hydrALAZINE 25 MG TABLET PO SCH ×3 (09:06→23:44)
[2021-06-17] MEDS: Ranolazine 500 MG TAB.ER.12H PO SCH ×2 (09:06→21:17)
[2021-06-17] MEDS ORDERED: Perflutren Lipid Microsphere 1.3 ML in 0.9 % Sodium Chloride 8.7 ML IVP PRN (11:13)
[2021-06-17 12:20] LABS: Calcium 7.7 mg/dL (8.6-10.3); Magnesium 1.5 mg/dL (1.6-2.6)
[2021-06-17] MEDS: Artificial Tears SOLN 15 ML BOTTLE BOTH EYES SCH (21:16)
[2021-06-17] MEDS: NIFEdipine XL (24 HR) 30 MG TAB.ER.24 PO SCH (21:17)
[2021-06-17] MEDS: Insulin DETEMIR 100 UNIT/ML X5UNITS SUBQ SCH (21:19)
[2021-06-18 02:08] LABS: INR 0.9; Prothrombin Time 10.6 Seconds (9.4-12.1)
[2021-06-18] MEDS: Melatonin 3 MG TABLET PO PRN (02:10)
[2021-06-18] MEDS: *HR* HYDROcodone/Acet 5/325 mg TABLET PO PRN ×2 (03:05→21:26)
[2021-06-18] MEDS: 0.9 % Sodium Chloride 1,000 ML IVC SCH (04:20)
[2021-06-18] MEDS: *HR* Heparin 5,000 UNIT/ML VIAL SQ SCH ×2 (04:21→17:46)
[2021-06-18] MEDS: Nitroglycerin 0.4 MG TAB.SUBL SL PRN (04:22)
[2021-06-18] MEDS: Insulin LISPRO 300 UNITS/3 ML VIAL SUBQ SCH ×3 (08:01→16:40)
[2021-06-18] MEDS: Aspirin 81 MG TAB.CHEW PO SCH (10:07)
[2021-06-18] MEDS: Ranolazine 500 MG TAB.ER.12H PO SCH ×2 (10:08→21:44)
[2021-06-18] MEDS: Isosorbide MONOnitrate (24 HR) 60 MG TAB.ER.24H PO SCH (10:08)
[2021-06-18] MEDS: Folic Acid 1 MG TABLET PO SCH ×2 (10:09→21:44)
[2021-06-18] MEDS: carvediloL 6.25 MG TABLET PO SCH ×2 (10:09→17:41)
[2021-06-18] MEDS: cloNIDine HCL 0.1 MG TABLET PO SCH ×3 (10:09→21:44)
[2021-06-18] MEDS: hydrALAZINE 25 MG TABLET PO SCH ×2 (10:09→17:40)
[2021-06-18] MEDS: *HR* Ticagrelor 90 MG TABLET PO SCH (11:05)
[2021-06-18 11:19] LABS: Hematocrit 22.6 % (37.5-50.1); Hemoglobin 7.4 g/dL (12.9-16.9); Mean Corpuscular HGB Conc 32.7 g/dL (31.6-35.5); Mean Corpuscular Hemoglobin 29.4 pg (28.0-33.3); Mean Corpuscular Volume 89.7 fL (83.0-100.0); Mean Platelet Volume 9.3 fL (9.4-12.4); Platelet Count 233 K/mcL (140-400); Red Blood Count 2.52 M/mcL (4.19-5.50); Red Cell Distribution Width 13.1 % (11.5-14.5); White Blood Count 5.5 K/mcL (4.3-11.1)
[2021-06-18] MEDS ORDERED: 0.9 % Sodium Chloride 250 ML IVC PRN (11:22)
[2021-06-18] MEDS ORDERED: *HR* Heparin 10,000 UNIT/10 ML VIAL IV SCH (11:30)
[2021-06-18] MEDS ORDERED: 0.9 % Sodium Chloride 1,000 ML PRIME SCH (11:30)
[2021-06-18 11:33] LABS: Potassium 3.9 mEq/L (3.5-5.1)
[2021-06-18] MEDS ORDERED: 0.9 % Sodium Chloride 500 ML ONE (12:05)
[2021-06-18 13:09] LABS: Hepatitis B Surface Antibody < 3.10 mIU/mL
[2021-06-18 13:19] LABS: Hepatitis B Surface Antigen Nonreactive (Nonreactive)
[2021-06-18] MEDS ORDERED: *HR* Heparin 5,000 UNIT/ML VIAL ONE (13:29)
[2021-06-18] MEDS: NIFEdipine XL (24 HR) 30 MG TAB.ER.24 PO SCH (21:43)
[2021-06-18] MEDS: Insulin DETEMIR 100 UNIT/ML X5UNITS SUBQ SCH (21:55)
[2021-06-18] MEDS: Artificial Tears SOLN 15 ML BOTTLE BOTH EYES SCH (22:16)
[2021-06-19] MEDS: hydrALAZINE 25 MG TABLET PO SCH ×3 (00:07→17:05)
[2021-06-19 02:51] LABS: Basophils % 0.5 %; Eosinophils # 0.2 K/mcL (0.0-0.6); Eosinophils % 3.3 %; Hematocrit 21.9 % (37.5-50.1); Hemoglobin 7.3 g/dL (12.9-16.9); Immature Granulocytes % 0.3 % (0-4); Lymphocytes % 15.5 %; Mean Corpuscular HGB Conc 33.3 g/dL (31.6-35.5); Mean Corpuscular Hemoglobin 29.2 pg (28.0-33.3); Mean Corpuscular Volume 87.6 fL (83.0-100.0); Mean Platelet Volume 9.7 fL (9.4-12.4); Monocytes # 0.6 K/mcL (0.0-1.3); Monocytes % 9.3 %; Neutrophils # 4.4 K/mcL (1.6-8.9); Platelet Count 221 K/mcL (140-400); Red Cell Distribution Width 13.2 % (11.5-14.5); Segmented Neutrophils % 71.1 %; White Blood Count 6.1 K/mcL (4.3-11.1)
[2021-06-19 03:09] LABS: Calcium 7.8 mg/dL (8.6-10.3); Potassium 3.5 mEq/L (3.5-5.1)
[2021-06-19] MEDS: *HR* Heparin 5,000 UNIT/ML VIAL SQ SCH ×2 (04:53→17:41)
[2021-06-19] MEDS: carvediloL 6.25 MG TABLET PO SCH ×2 (07:52→17:05)
[2021-06-19] MEDS: Insulin LISPRO 300 UNITS/3 ML VIAL SUBQ SCH ×3 (07:52→17:34)
[2021-06-19] MEDS: Ranolazine 500 MG TAB.ER.12H PO SCH ×2 (07:53→20:43)
[2021-06-19] MEDS: cloNIDine HCL 0.1 MG TABLET PO SCH ×3 (07:53→20:43)
[2021-06-19] MEDS: Folic Acid 1 MG TABLET PO SCH ×2 (07:53→20:43)
[2021-06-19] MEDS: Isosorbide MONOnitrate (24 HR) 60 MG TAB.ER.24H PO SCH (07:53)
[2021-06-19] MEDS: Aspirin 81 MG TAB.CHEW PO SCH (07:55)
[2021-06-19] MEDS ORDERED: 0.9 % Sodium Chloride 250 ML IVC PRN ×2 (08:24→08:25)
[2021-06-19] MEDS ORDERED: *HR* Heparin 10,000 UNIT/10 ML VIAL IV PRN ×2 (08:25)
[2021-06-19] MEDS: Insulin DETEMIR 100 UNIT/ML X5UNITS SUBQ SCH (20:42)
[2021-06-19] MEDS: Artificial Tears SOLN 15 ML BOTTLE BOTH EYES SCH (20:42)
[2021-06-19] MEDS: *HR* HYDROcodone/Acet 5/325 mg TABLET PO PRN (20:42)
[2021-06-19] MEDS: NIFEdipine XL (24 HR) 30 MG TAB.ER.24 PO SCH (20:43)
[2021-06-20] MEDS: hydrALAZINE 25 MG TABLET PO SCH ×3 (00:28→16:36)
[2021-06-20] MEDS: Melatonin 3 MG TABLET PO PRN (00:28)
[2021-06-20 03:02] LABS: Basophils % 0.4 %; Eosinophils # 0.2 K/mcL (0.0-0.6); Eosinophils % 3.4 %; Hematocrit 21.6 % (37.5-50.1); Hemoglobin 7.1 g/dL (12.9-16.9); Immature Granulocytes % 0.6 % (0-4); Lymphocytes % 18.9 %; Mean Corpuscular HGB Conc 32.9 g/dL (31.6-35.5); Mean Corpuscular Hemoglobin 29.1 pg (28.0-33.3); Mean Corpuscular Volume 88.5 fL (83.0-100.0); Mean Platelet Volume 9.7 fL (9.4-12.4); Monocytes # 0.6 K/mcL (0.0-1.3); Monocytes % 10.9 %; Neutrophils # 3.5 K/mcL (1.6-8.9); Platelet Count 205 K/mcL (140-400); Red Blood Count 2.44 M/mcL (4.19-5.50); Red Cell Distribution Width 13.2 % (11.5-14.5); Segmented Neutrophils % 65.8 %; White Blood Count 5.3 K/mcL (4.3-11.1)
[2021-06-20 03:23] LABS: Calcium 7.7 mg/dL (8.6-10.3); Phosphorous 2.3 mg/dL (2.7-4.5); Potassium 3.9 mEq/L (3.5-5.1)
[2021-06-20] MEDS: *HR* Heparin 5,000 UNIT/ML VIAL SQ SCH ×2 (05:59→17:35)
[2021-06-20] MEDS ORDERED: *HR* Heparin 10,000 UNIT/10 ML VIAL IV PRN ×2 (07:51)
[2021-06-20] MEDS ORDERED: 0.9 % Sodium Chloride 250 ML IVC PRN (07:51)
[2021-06-20] MEDS ORDERED: 0.9 % Sodium Chloride 1,000 ML PRIME SCH (08:00)
[2021-06-20] MEDS: Insulin LISPRO 300 UNITS/3 ML VIAL SUBQ SCH ×3 (08:53→17:33)
[2021-06-20] MEDS ORDERED: 0.9 % Sodium Chloride 250 ML ONE (12:13)
[2021-06-20] MEDS: Ranolazine 500 MG TAB.ER.12H PO SCH ×2 (14:00→20:25)
[2021-06-20] MEDS: cloNIDine HCL 0.1 MG TABLET PO SCH ×3 (14:01→20:26)
[2021-06-20] MEDS: carvediloL 6.25 MG TABLET PO SCH ×2 (14:01→16:36)
[2021-06-20] MEDS: Isosorbide MONOnitrate (24 HR) 60 MG TAB.ER.24H PO SCH (14:01)
[2021-06-20] MEDS: Aspirin 81 MG TAB.CHEW PO SCH (14:01)
[2021-06-20] MEDS: Folic Acid 1 MG TABLET PO SCH ×2 (14:01→20:25)
[2021-06-20] MEDS: NIFEdipine XL (24 HR) 30 MG TAB.ER.24 PO SCH (20:25)
[2021-06-20] MEDS: Insulin DETEMIR 100 UNIT/ML X5UNITS SUBQ SCH (20:28)
[2021-06-20] MEDS: Artificial Tears SOLN 15 ML BOTTLE BOTH EYES SCH (20:28)
[2021-06-21] MEDS: hydrALAZINE 25 MG TABLET PO SCH ×3 (01:51→14:06)
[2021-06-21] MEDS: Melatonin 3 MG TABLET PO PRN ×2 (01:51→20:56)
[2021-06-21 02:26] LABS: Basophils % 0.4 %; Eosinophils # 0.2 K/mcL (0.0-0.6); Eosinophils % 3.3 %; Hematocrit 24.9 % (37.5-50.1); Hemoglobin 8.2 g/dL (12.9-16.9); Immature Granulocytes % 0.3 % (0-4); Lymphocytes % 14.3 %; Mean Corpuscular HGB Conc 32.9 g/dL (31.6-35.5); Mean Corpuscular Hemoglobin 28.6 pg (28.0-33.3); Mean Corpuscular Volume 86.8 fL (83.0-100.0); Mean Platelet Volume 9.5 fL (9.4-12.4); Monocytes # 0.7 K/mcL (0.0-1.3); Monocytes % 10.6 %; Platelet Count 204 K/mcL (140-400); Red Blood Count 2.87 M/mcL (4.19-5.50); Red Cell Distribution Width 13.2 % (11.5-14.5); Segmented Neutrophils % 71.1 %
[2021-06-21 02:32] LABS: Phosphorous 2.2 mg/dL (2.7-4.5); Potassium 3.6 mEq/L (3.5-5.1)
[2021-06-21] MEDS: *HR* Heparin 5,000 UNIT/ML VIAL SQ SCH ×2 (05:49→16:32)
[2021-06-21] MEDS: Ranolazine 500 MG TAB.ER.12H PO SCH ×2 (08:45→20:56)
[2021-06-21] MEDS: Isosorbide MONOnitrate (24 HR) 60 MG TAB.ER.24H PO SCH (08:45)
[2021-06-21] MEDS: carvediloL 6.25 MG TABLET PO SCH ×2 (08:45→16:32)
[2021-06-21] MEDS: Folic Acid 1 MG TABLET PO SCH ×2 (08:45→20:56)
[2021-06-21] MEDS: cloNIDine HCL 0.1 MG TABLET PO SCH ×3 (08:45→20:56)
[2021-06-21] MEDS: Aspirin 81 MG TAB.CHEW PO SCH (08:45)
[2021-06-21] MEDS: Insulin LISPRO 300 UNITS/3 ML VIAL SUBQ SCH ×3 (08:45→16:33)
[2021-06-21] MEDS ORDERED: CeFAZolin 2,000MG/50ML DUPLEX 2,000 MG/50 ML BAG IVPB ONE (09:33)
[2021-06-21] MEDS ORDERED: *HR* Midazolam HCl 5 MG/5 ML VIAL IVP ONE (09:33)
[2021-06-21] MEDS ORDERED: *HR* FentaNYL (PF) 100 MCG/2 ML VIAL IVP ONE (09:33)
[2021-06-21] MEDS ORDERED: 0.9 % Sodium Chloride 500 ML ONE (09:36)
[2021-06-21] MEDS ORDERED: Heparin 1,000 UNITS/500 mL 500 ML ONE (09:38)
[2021-06-21] MEDS ORDERED: *HR* Midazolam HCl 2 MG/2 ML VIAL IVP ONE (10:00)
[2021-06-21] MEDS ORDERED: *HR* Heparin 5,000 UNIT/ML VIAL ONE (10:01)
[2021-06-21] MEDS: NIFEdipine XL (24 HR) 30 MG TAB.ER.24 PO SCH (20:55)
[2021-06-21] MEDS: *HR* HYDROcodone/Acet 5/325 mg TABLET PO PRN (20:55)
[2021-06-21] MEDS: Artificial Tears SOLN 15 ML BOTTLE BOTH EYES SCH (21:19)
[2021-06-22] MEDS: hydrALAZINE 25 MG TABLET PO SCH ×3 (00:20→14:01)
[2021-06-22] MEDS: *HR* Heparin 5,000 UNIT/ML VIAL SQ SCH ×2 (05:53→18:25)
[2021-06-22 06:27] LABS: Basophils % 0.3 %; Eosinophils # 0.2 K/mcL (0.0-0.6); Eosinophils % 2.4 %; Hematocrit 27.7 % (37.5-50.1); Hemoglobin 9.2 g/dL (12.9-16.9); Immature Granulocytes % 0.3 % (0-4); Lymphocytes % 16.2 %; Mean Corpuscular HGB Conc 33.2 g/dL (31.6-35.5); Mean Corpuscular Hemoglobin 29.1 pg (28.0-33.3); Mean Corpuscular Volume 87.7 fL (83.0-100.0); Mean Platelet Volume 9.2 fL (9.4-12.4); Monocytes # 0.6 K/mcL (0.0-1.3); Monocytes % 9.7 %; Neutrophils # 4.5 K/mcL (1.6-8.9); Platelet Count 220 K/mcL (140-400); Red Blood Count 3.16 M/mcL (4.19-5.50); Red Cell Distribution Width 13.4 % (11.5-14.5); Segmented Neutrophils % 71.1 %; White Blood Count 6.4 K/mcL (4.3-11.1)
[2021-06-22 06:51] LABS: Calcium 8.5 mg/dL (8.6-10.3); Potassium 3.8 mEq/L (3.5-5.1)
[2021-06-22] MEDS: Insulin LISPRO 300 UNITS/3 ML VIAL SUBQ SCH ×3 (08:36→16:30)
[2021-06-22] MEDS ORDERED: 0.9 % Sodium Chloride 250 ML IVC PRN (08:46)
[2021-06-22] MEDS ORDERED: *HR* Heparin 10,000 UNIT/10 ML VIAL IV PRN (12:22)
[2021-06-22] MEDS: Ranolazine 500 MG TAB.ER.12H PO SCH ×2 (13:50→21:13)
[2021-06-22] MEDS: Isosorbide MONOnitrate (24 HR) 60 MG TAB.ER.24H PO SCH (13:51)
[2021-06-22] MEDS: Folic Acid 1 MG TABLET PO SCH ×2 (13:51→21:13)
[2021-06-22] MEDS: Aspirin 81 MG TAB.CHEW PO SCH (13:51)
[2021-06-22] MEDS: carvediloL 6.25 MG TABLET PO SCH ×2 (13:52→14:01)
[2021-06-22] MEDS: cloNIDine HCL 0.1 MG TABLET PO SCH ×3 (13:52→21:13)
[2021-06-22] MEDS: *HR* HYDROcodone/Acet 5/325 mg TABLET PO PRN (21:12)
[2021-06-22] MEDS: NIFEdipine XL (24 HR) 30 MG TAB.ER.24 PO SCH (21:12)
[2021-06-22] MEDS: *HR* Ticagrelor 90 MG TABLET PO SCH (21:13)
[2021-06-22] MEDS: Artificial Tears SOLN 15 ML BOTTLE BOTH EYES SCH (21:13)
[2021-06-23] MEDS: Acetaminophen 325 MG TABLET PO PRN (00:19)
[2021-06-23] MEDS: hydrALAZINE 25 MG TABLET PO SCH ×3 (00:25→14:48)
[2021-06-23] MEDS: *HR* HYDROcodone/Acet 5/325 mg TABLET PO PRN (04:37)
[2021-06-23] MEDS: *HR* Heparin 5,000 UNIT/ML VIAL SQ SCH ×2 (05:15→17:12)
[2021-06-23 07:00] LABS: Basophils % 0.4 %; Eosinophils # 0.2 K/mcL (0.0-0.6); Eosinophils % 2.9 %; Hematocrit 26.6 % (37.5-50.1); Immature Granulocytes % 0.4 % (0-4); Lymphocytes # 0.9 K/mcL (0.6-4.6); Lymphocytes % 12.1 %; Mean Corpuscular HGB Conc 33.8 g/dL (31.6-35.5); Mean Corpuscular Hemoglobin 29.7 pg (28.0-33.3); Mean Corpuscular Volume 87.8 fL (83.0-100.0); Mean Platelet Volume 9.6 fL (9.4-12.4); Monocytes # 0.7 K/mcL (0.0-1.3); Monocytes % 9.7 %; Neutrophils # 5.5 K/mcL (1.6-8.9); Platelet Count 229 K/mcL (140-400); Red Blood Count 3.03 M/mcL (4.19-5.50); Red Cell Distribution Width 13.2 % (11.5-14.5); Segmented Neutrophils % 74.5 %; White Blood Count 7.4 K/mcL (4.3-11.1)
[2021-06-23 07:19] LABS: Potassium 3.7 mEq/L (3.5-5.1)
[2021-06-23 07:20] LABS: Calcium 8.3 mg/dL (8.6-10.3); Phosphorous 2.3 mg/dL (2.7-4.5)
[2021-06-23] MEDS: Aspirin 81 MG TAB.CHEW PO SCH (08:43)
[2021-06-23] MEDS: *HR* Ticagrelor 90 MG TABLET PO SCH ×2 (08:53→21:48)
[2021-06-23] MEDS: Ranolazine 500 MG TAB.ER.12H PO SCH ×2 (08:53→21:48)
[2021-06-23] MEDS: Insulin LISPRO 300 UNITS/3 ML VIAL SUBQ SCH ×3 (08:54→17:12)
[2021-06-23] MEDS: carvediloL 6.25 MG TABLET PO SCH ×2 (08:54→17:12)
[2021-06-23] MEDS: Folic Acid 1 MG TABLET PO SCH ×2 (08:54→21:48)
[2021-06-23] MEDS: cloNIDine HCL 0.1 MG TABLET PO SCH ×3 (08:54→21:48)
[2021-06-23] MEDS: Isosorbide MONOnitrate (24 HR) 60 MG TAB.ER.24H PO SCH (08:54)
[2021-06-23] MEDS: NIFEdipine XL (24 HR) 30 MG TAB.ER.24 PO SCH (21:48)
[2021-06-23] MEDS: Artificial Tears SOLN 15 ML BOTTLE BOTH EYES SCH (21:50)
[2021-06-24] MEDS: hydrALAZINE 25 MG TABLET PO SCH ×4 (00:06→19:59)
[2021-06-24] MEDS: Melatonin 3 MG TABLET PO PRN ×2 (00:06→19:58)
[2021-06-24 01:50] LABS: Calcium 7.9 mg/dL (8.6-10.3); Phosphorous 3.3 mg/dL (2.7-4.5); Potassium 3.9 mEq/L (3.5-5.1)
[2021-06-24] MEDS: *HR* HYDROcodone/Acet 5/325 mg TABLET PO PRN ×3 (03:53→20:00)
[2021-06-24] MEDS: *HR* Heparin 5,000 UNIT/ML VIAL SQ SCH ×2 (03:59→16:53)
[2021-06-24] MEDS ORDERED: 0.9 % Sodium Chloride 250 ML IVC PRN (08:51)
[2021-06-24] MEDS ORDERED: *HR* Heparin 10,000 UNIT/10 ML VIAL IV PRN (08:51)
[2021-06-24] MEDS: Insulin LISPRO 300 UNITS/3 ML VIAL SUBQ SCH ×3 (09:12→16:53)
[2021-06-24] MEDS: cloNIDine HCL 0.1 MG TABLET PO SCH ×3 (09:18→19:59)
[2021-06-24] MEDS: Aspirin 81 MG TAB.CHEW PO SCH (09:18)
[2021-06-24] MEDS: carvediloL 6.25 MG TABLET PO SCH ×2 (09:19→16:53)
[2021-06-24] MEDS: Isosorbide MONOnitrate (24 HR) 60 MG TAB.ER.24H PO SCH (09:19)
[2021-06-24] MEDS: Ranolazine 500 MG TAB.ER.12H PO SCH ×2 (09:19→19:58)
[2021-06-24] MEDS: *HR* Ticagrelor 90 MG TABLET PO SCH ×2 (09:19→20:00)
[2021-06-24] MEDS: Folic Acid 1 MG TABLET PO SCH ×2 (09:19→19:58)
[2021-06-24] MEDS: NIFEdipine XL (24 HR) 30 MG TAB.ER.24 PO SCH (19:59)
[2021-06-24] MEDS: Artificial Tears SOLN 15 ML BOTTLE BOTH EYES SCH (20:05)
[2021-06-25 05:18] LABS: Calcium 8.7 mg/dL (8.6-10.3); Potassium 3.7 mEq/L (3.5-5.1)
[2021-06-25] MEDS: *HR* Heparin 5,000 UNIT/ML VIAL SQ SCH ×2 (06:31→16:50)
[2021-06-25] MEDS: cloNIDine HCL 0.1 MG TABLET PO SCH ×3 (09:29→21:21)
[2021-06-25] MEDS: Isosorbide MONOnitrate (24 HR) 60 MG TAB.ER.24H PO SCH (09:29)
[2021-06-25] MEDS: carvediloL 6.25 MG TABLET PO SCH ×2 (09:30→16:50)
[2021-06-25] MEDS: Aspirin 81 MG TAB.CHEW PO SCH (09:30)
[2021-06-25] MEDS: Ranolazine 500 MG TAB.ER.12H PO SCH ×2 (09:30→21:20)
[2021-06-25] MEDS: *HR* Ticagrelor 90 MG TABLET PO SCH ×2 (09:31→21:17)
[2021-06-25] MEDS: hydrALAZINE 25 MG TABLET PO SCH ×3 (09:31→21:16)
[2021-06-25] MEDS: Insulin LISPRO 300 UNITS/3 ML VIAL SUBQ SCH ×3 (09:31→16:17)
[2021-06-25] MEDS: Folic Acid 1 MG TABLET PO SCH ×2 (09:31→21:20)
[2021-06-25] MEDS: NIFEdipine XL (24 HR) 30 MG TAB.ER.24 PO SCH (21:16)
[2021-06-25] MEDS: Artificial Tears SOLN 15 ML BOTTLE BOTH EYES SCH (21:22)
[2021-06-25] MEDS ORDERED: *HR* Metoprolol 5 MG/5 ML VIAL IVP ONE (22:51)
[2021-06-26 04:11] LABS: Calcium 8.7 mg/dL (8.6-10.3); Phosphorous 3.6 mg/dL (2.7-4.5); Potassium 3.6 mEq/L (3.5-5.1)
[2021-06-26] MEDS: *HR* Heparin 5,000 UNIT/ML VIAL SQ SCH ×2 (06:16→18:24)
[2021-06-26] MEDS ORDERED: 0.9 % Sodium Chloride 250 ML IVC PRN (08:37)
[2021-06-26] MEDS ORDERED: *HR* Heparin 10,000 UNIT/10 ML VIAL IV PRN (08:37)
[2021-06-26] MEDS: Isosorbide MONOnitrate (24 HR) 60 MG TAB.ER.24H PO SCH (08:52)
[2021-06-26] MEDS: Aspirin 81 MG TAB.CHEW PO SCH (08:53)
[2021-06-26] MEDS: Ranolazine 500 MG TAB.ER.12H PO SCH ×2 (08:53→21:49)
[2021-06-26] MEDS: carvediloL 6.25 MG TABLET PO SCH ×2 (08:53→18:24)
[2021-06-26] MEDS: hydrALAZINE 25 MG TABLET PO SCH ×3 (08:54→21:51)
[2021-06-26] MEDS: cloNIDine HCL 0.1 MG TABLET PO SCH ×3 (08:54→21:51)
[2021-06-26] MEDS: *HR* Ticagrelor 90 MG TABLET PO SCH ×2 (08:55→21:49)
[2021-06-26] MEDS: Insulin LISPRO 300 UNITS/3 ML VIAL SUBQ SCH ×3 (08:55→18:21)
[2021-06-26] MEDS: Folic Acid 1 MG TABLET PO SCH ×2 (13:12→21:50)
[2021-06-26] MEDS: NIFEdipine XL (24 HR) 30 MG TAB.ER.24 PO SCH (21:48)
[2021-06-26] MEDS: Melatonin 3 MG TABLET PO PRN (21:49)
[2021-06-26] MEDS: *HR* HYDROcodone/Acet 5/325 mg TABLET PO PRN (21:49)
[2021-06-26] MEDS: Artificial Tears SOLN 15 ML BOTTLE BOTH EYES SCH (21:51)
[2021-06-27 02:02] LABS: Basophils % 0.3 %; Eosinophils # 0.1 K/mcL (0.0-0.6); Eosinophils % 0.7 %; Hematocrit 27.3 % (37.5-50.1); Hemoglobin 9.2 g/dL (12.9-16.9); Immature Granulocytes % 0.6 % (0-4); Lymphocytes # 0.9 K/mcL (0.6-4.6); Lymphocytes % 12.6 %; Mean Corpuscular HGB Conc 33.7 g/dL (31.6-35.5); Mean Corpuscular Hemoglobin 30.1 pg (28.0-33.3); Mean Corpuscular Volume 89.2 fL (83.0-100.0); Mean Platelet Volume 9.5 fL (9.4-12.4); Monocytes # 0.5 K/mcL (0.0-1.3); Monocytes % 7.9 %; Neutrophils # 5.3 K/mcL (1.6-8.9); Platelet Count 225 K/mcL (140-400); Red Blood Count 3.06 M/mcL (4.19-5.50); Red Cell Distribution Width 13.2 % (11.5-14.5); Segmented Neutrophils % 77.9 %; White Blood Count 6.7 K/mcL (4.3-11.1)
[2021-06-27 02:16] LABS: Albumin 3.2 g/dL (3.5-5.7); Albumin/Globulin Ratio 1.5 (1.1-2.2); Bilirubin,Direct 0.1 mg/dL (0.0-0.2); Bilirubin,Indirect 0.4 mg/dL (0.0-1.0); Bilirubin,Total 0.5 mg/dL (0.3-1.0); Calcium 8.7 mg/dL (8.6-10.3); Globulin 2.1 g/dL (2.4-3.5); Magnesium 1.6 mg/dL (1.6-2.6); Phosphorous 3.4 mg/dL (2.7-4.5); Potassium 3.7 mEq/L (3.5-5.1); Total Protein 5.3 g/dL (6.4-8.9)
[2021-06-27 02:35] LABS: Estimated Average Glucose 154 mg/dl
[2021-06-27 02:45] LABS: Folate > 22.3 ng/mL (3.0-16.0); Vitamin B12 807 pg/mL (250-1100)
[2021-06-27] MEDS: *HR* Heparin 5,000 UNIT/ML VIAL SQ SCH ×2 (05:43→18:10)
[2021-06-27] MEDS: Insulin LISPRO 300 UNITS/3 ML VIAL SUBQ SCH ×3 (08:48→18:11)
[2021-06-27] MEDS: hydrALAZINE 25 MG TABLET PO SCH ×3 (08:51→21:00)
[2021-06-27] MEDS: *HR* HYDROcodone/Acet 5/325 mg TABLET PO PRN (08:51)
[2021-06-27] MEDS: Aspirin 81 MG TAB.CHEW PO SCH (08:52)
[2021-06-27] MEDS: Folic Acid 1 MG TABLET PO SCH ×2 (08:52→20:59)
[2021-06-27] MEDS: carvediloL 6.25 MG TABLET PO SCH ×2 (08:52→18:13)
[2021-06-27] MEDS: Isosorbide MONOnitrate (24 HR) 60 MG TAB.ER.24H PO SCH (08:53)
[2021-06-27] MEDS: *HR* Ticagrelor 90 MG TABLET PO SCH ×2 (08:53→21:39)
[2021-06-27] MEDS: Ranolazine 500 MG TAB.ER.12H PO SCH ×2 (08:53→20:59)
[2021-06-27] MEDS: cloNIDine HCL 0.1 MG TABLET PO SCH ×3 (08:53→21:00)
[2021-06-27] MEDS: Artificial Tears SOLN 15 ML BOTTLE BOTH EYES SCH (20:58)
[2021-06-27] MEDS: NIFEdipine XL (24 HR) 30 MG TAB.ER.24 PO SCH (21:00)
[2021-06-28 04:47] LABS: Basophils % 0.4 %; Eosinophils # 0.1 K/mcL (0.0-0.6); Eosinophils % 1.2 %; Hematocrit 31.7 % (37.5-50.1); Hemoglobin 10.2 g/dL (12.9-16.9); Immature Granulocytes % 0.4 % (0-4); Lymphocytes # 1.3 K/mcL (0.6-4.6); Lymphocytes % 18.5 %; Mean Corpuscular HGB Conc 32.2 g/dL (31.6-35.5); Mean Corpuscular Hemoglobin 28.7 pg (28.0-33.3); Mean Platelet Volume 9.3 fL (9.4-12.4); Monocytes # 0.5 K/mcL (0.0-1.3); Monocytes % 7.8 %; Neutrophils # 4.9 K/mcL (1.6-8.9); Platelet Count 266 K/mcL (140-400); Red Blood Count 3.56 M/mcL (4.19-5.50); Red Cell Distribution Width 12.9 % (11.5-14.5); Segmented Neutrophils % 71.7 %; White Blood Count 6.8 K/mcL (4.3-11.1)
[2021-06-28 05:01] LABS: Calcium 8.9 mg/dL (8.6-10.3); Magnesium 1.6 mg/dL (1.6-2.6); Potassium 3.6 mEq/L (3.5-5.1)
[2021-06-28] MEDS: *HR* Heparin 5,000 UNIT/ML VIAL SQ SCH ×2 (05:27→17:26)
[2021-06-28] MEDS: Ranolazine 500 MG TAB.ER.12H PO SCH ×2 (08:06→21:41)
[2021-06-28] MEDS: hydrALAZINE 25 MG TABLET PO SCH ×3 (08:06→21:42)
[2021-06-28] MEDS: Isosorbide MONOnitrate (24 HR) 60 MG TAB.ER.24H PO SCH (08:06)
[2021-06-28] MEDS: Folic Acid 1 MG TABLET PO SCH ×2 (08:06→21:42)
[2021-06-28] MEDS: Aspirin 81 MG TAB.CHEW PO SCH (08:07)
[2021-06-28] MEDS: *HR* Ticagrelor 90 MG TABLET PO SCH ×2 (08:08→21:42)
[2021-06-28] MEDS: carvediloL 6.25 MG TABLET PO SCH ×2 (08:08→17:26)
[2021-06-28] MEDS: cloNIDine HCL 0.1 MG TABLET PO SCH ×3 (08:09→21:42)
[2021-06-28] MEDS: Insulin LISPRO 300 UNITS/3 ML VIAL SUBQ SCH ×3 (08:09→17:20)
[2021-06-28] MEDS ORDERED: 0.9 % Sodium Chloride 250 ML IVC PRN (08:24)
[2021-06-28] MEDS ORDERED: *HR* Heparin 10,000 UNIT/10 ML VIAL IV PRN (08:24)
[2021-06-28] MEDS: NIFEdipine XL (24 HR) 30 MG TAB.ER.24 PO SCH (21:41)
[2021-06-28] MEDS: Artificial Tears SOLN 15 ML BOTTLE BOTH EYES SCH (21:45)
[2021-06-29 01:56] LABS: Basophils % 0.4 %; Eosinophils # 0.1 K/mcL (0.0-0.6); Eosinophils % 1.8 %; Hematocrit 28.8 % (37.5-50.1); Hemoglobin 9.6 g/dL (12.9-16.9); Immature Granulocytes % 0.3 % (0-4); Lymphocytes # 0.8 K/mcL (0.6-4.6); Lymphocytes % 12.4 %; Mean Corpuscular HGB Conc 33.3 g/dL (31.6-35.5); Mean Corpuscular Hemoglobin 29.4 pg (28.0-33.3); Mean Corpuscular Volume 88.1 fL (83.0-100.0); Mean Platelet Volume 9.5 fL (9.4-12.4); Monocytes # 0.7 K/mcL (0.0-1.3); Monocytes % 9.9 %; Platelet Count 217 K/mcL (140-400); Red Blood Count 3.27 M/mcL (4.19-5.50); Red Cell Distribution Width 12.6 % (11.5-14.5); Segmented Neutrophils % 75.2 %; White Blood Count 6.7 K/mcL (4.3-11.1)
[2021-06-29] MEDS: Melatonin 3 MG TABLET PO PRN (02:08)
[2021-06-29 02:11] LABS: Calcium 8.4 mg/dL (8.6-10.3); Magnesium 1.6 mg/dL (1.6-2.6); Phosphorous 2.1 mg/dL (2.7-4.5); Potassium 3.7 mEq/L (3.5-5.1)
[2021-06-29] MEDS: *HR* Heparin 5,000 UNIT/ML VIAL SQ SCH ×2 (05:31→17:09)
[2021-06-29] MEDS: carvediloL 6.25 MG TABLET PO SCH ×2 (09:31→17:09)
[2021-06-29] MEDS: Folic Acid 1 MG TABLET PO SCH ×2 (09:31→20:40)
[2021-06-29] MEDS: Aspirin 81 MG TAB.CHEW PO SCH (09:32)
[2021-06-29] MEDS: hydrALAZINE 25 MG TABLET PO SCH ×3 (09:32→20:38)
[2021-06-29] MEDS: Ranolazine 500 MG TAB.ER.12H PO SCH ×2 (09:32→20:39)
[2021-06-29] MEDS: Isosorbide MONOnitrate (24 HR) 60 MG TAB.ER.24H PO SCH (09:32)
[2021-06-29] MEDS: *HR* Ticagrelor 90 MG TABLET PO SCH ×2 (09:32→20:40)
[2021-06-29] MEDS: Insulin LISPRO 300 UNITS/3 ML VIAL SUBQ SCH ×3 (09:32→16:49)
[2021-06-29] MEDS: cloNIDine HCL 0.1 MG TABLET PO SCH ×3 (09:32→20:40)
[2021-06-29] MEDS: NIFEdipine XL (24 HR) 30 MG TAB.ER.24 PO SCH (20:39)
[2021-06-29] MEDS: Artificial Tears SOLN 15 ML BOTTLE BOTH EYES SCH (20:40)
[2021-06-29] MEDS: *HR* HYDROcodone/Acet 5/325 mg TABLET PO PRN (20:52)
[2021-06-30] MEDS: *HR* Heparin 5,000 UNIT/ML VIAL SQ SCH ×2 (05:35→17:41)
[2021-06-30 06:52] LABS: Basophils % 0.4 %; Eosinophils # 0.2 K/mcL (0.0-0.6); Eosinophils % 3.5 %; Hematocrit 28.3 % (37.5-50.1); Immature Granulocytes % 0.6 % (0-4); Lymphocytes % 17.7 %; Mean Corpuscular HGB Conc 31.8 g/dL (31.6-35.5); Mean Corpuscular Hemoglobin 28.4 pg (28.0-33.3); Mean Corpuscular Volume 89.3 fL (83.0-100.0); Mean Platelet Volume 9.5 fL (9.4-12.4); Monocytes # 0.5 K/mcL (0.0-1.3); Monocytes % 8.9 %; Neutrophils # 3.7 K/mcL (1.6-8.9); Platelet Count 232 K/mcL (140-400); Red Blood Count 3.17 M/mcL (4.19-5.50); Red Cell Distribution Width 12.6 % (11.5-14.5); Segmented Neutrophils % 68.9 %; White Blood Count 5.4 K/mcL (4.3-11.1)
[2021-06-30 07:13] LABS: Calcium 8.5 mg/dL (8.6-10.3); Magnesium 1.6 mg/dL (1.6-2.6); Potassium 3.9 mEq/L (3.5-5.1)
[2021-06-30] MEDS: hydrALAZINE 25 MG TABLET PO SCH ×3 (07:35→21:50)
[2021-06-30] MEDS: carvediloL 6.25 MG TABLET PO SCH ×2 (07:35→17:41)
[2021-06-30] MEDS: *HR* Ticagrelor 90 MG TABLET PO SCH ×2 (07:35→21:50)
[2021-06-30] MEDS: Ranolazine 500 MG TAB.ER.12H PO SCH ×2 (07:35→21:49)
[2021-06-30] MEDS: Folic Acid 1 MG TABLET PO SCH ×2 (07:36→21:51)
[2021-06-30] MEDS: cloNIDine HCL 0.1 MG TABLET PO SCH ×3 (07:36→21:50)
[2021-06-30] MEDS: Isosorbide MONOnitrate (24 HR) 60 MG TAB.ER.24H PO SCH (07:36)
[2021-06-30] MEDS: Insulin LISPRO 300 UNITS/3 ML VIAL SUBQ SCH ×3 (07:36→17:02)
[2021-06-30] MEDS: Aspirin 81 MG TAB.CHEW PO SCH (07:36)
[2021-06-30] MEDS: NIFEdipine XL (24 HR) 30 MG TAB.ER.24 PO SCH (21:51)
[2021-06-30] MEDS: *HR* HYDROcodone/Acet 5/325 mg TABLET PO PRN (21:55)
[2021-06-30] MEDS: Melatonin 3 MG TABLET PO PRN (21:55)
[2021-06-30] MEDS: Artificial Tears SOLN 15 ML BOTTLE BOTH EYES SCH (21:56)
[2021-07-01] MEDS: *HR* Heparin 5,000 UNIT/ML VIAL SQ SCH ×2 (06:09→18:04)
[2021-07-01] MEDS ORDERED: 0.9 % Sodium Chloride 250 ML IVC PRN (06:53)
[2021-07-01] MEDS: Insulin LISPRO 300 UNITS/3 ML VIAL SUBQ SCH ×3 (08:00→16:11)
[2021-07-01] MEDS: *HR* Ticagrelor 90 MG TABLET PO SCH ×2 (12:21→21:51)
[2021-07-01] MEDS: carvediloL 6.25 MG TABLET PO SCH ×2 (12:21→18:03)
[2021-07-01] MEDS: Aspirin 81 MG TAB.CHEW PO SCH (12:21)
[2021-07-01] MEDS: Folic Acid 1 MG TABLET PO SCH ×2 (12:22→21:54)
[2021-07-01] MEDS: Isosorbide MONOnitrate (24 HR) 60 MG TAB.ER.24H PO SCH (12:22)
[2021-07-01] MEDS: Ranolazine 500 MG TAB.ER.12H PO SCH ×2 (12:22→21:53)
[2021-07-01] MEDS: hydrALAZINE 25 MG TABLET PO SCH ×3 (12:22→21:51)
[2021-07-01] MEDS: cloNIDine HCL 0.1 MG TABLET PO SCH ×3 (12:22→21:54)
[2021-07-01 13:18] LABS: Calcium 8.4 mg/dL (8.6-10.3); Magnesium 1.6 mg/dL (1.6-2.6); Phosphorous 3.5 mg/dL (2.7-4.5); Potassium 4.2 mEq/L (3.5-5.1)
[2021-07-01] MEDS ORDERED: *HR* Heparin 10,000 UNIT/10 ML VIAL IV PRN (16:18)
[2021-07-01 19:11] LABS: Basophils % 0.5 %; Eosinophils # 0.2 K/mcL (0.0-0.6); Hematocrit 27.7 % (37.5-50.1); Hemoglobin 9.2 g/dL (12.9-16.9); Immature Granulocytes % 0.5 % (0-4); Lymphocytes # 1.1 K/mcL (0.6-4.6); Mean Corpuscular HGB Conc 33.2 g/dL (31.6-35.5); Mean Corpuscular Hemoglobin 29.3 pg (28.0-33.3); Mean Corpuscular Volume 88.2 fL (83.0-100.0); Mean Platelet Volume 9.3 fL (9.4-12.4); Monocytes # 0.6 K/mcL (0.0-1.3); Monocytes % 10.7 %; Neutrophils # 3.6 K/mcL (1.6-8.9); Platelet Count 228 K/mcL (140-400); Red Blood Count 3.14 M/mcL (4.19-5.50); Red Cell Distribution Width 12.5 % (11.5-14.5); Segmented Neutrophils % 65.3 %; White Blood Count 5.5 K/mcL (4.3-11.1)
[2021-07-01] MEDS: NIFEdipine XL (24 HR) 30 MG TAB.ER.24 PO SCH (21:53)
[2021-07-01] MEDS: Melatonin 3 MG TABLET PO PRN (21:54)
[2021-07-01] MEDS: Artificial Tears SOLN 15 ML BOTTLE BOTH EYES SCH (21:57)
[2021-07-02 01:04] LABS: Basophils % 0.3 %; Eosinophils # 0.2 K/mcL (0.0-0.6); Hematocrit 27.3 % (37.5-50.1); Hemoglobin 9.2 g/dL (12.9-16.9); Immature Granulocytes % 0.3 % (0-4); Lymphocytes # 1.3 K/mcL (0.6-4.6); Lymphocytes % 21.7 %; Mean Corpuscular HGB Conc 33.7 g/dL (31.6-35.5); Mean Corpuscular Hemoglobin 29.4 pg (28.0-33.3); Mean Corpuscular Volume 87.2 fL (83.0-100.0); Mean Platelet Volume 9.3 fL (9.4-12.4); Monocytes # 0.7 K/mcL (0.0-1.3); Monocytes % 11.7 %; Neutrophils # 3.6 K/mcL (1.6-8.9); Platelet Count 213 K/mcL (140-400); Red Blood Count 3.13 M/mcL (4.19-5.50); Red Cell Distribution Width 12.4 % (11.5-14.5); White Blood Count 5.8 K/mcL (4.3-11.1)
[2021-07-02 01:20] LABS: Calcium 8.1 mg/dL (8.6-10.3); Magnesium 1.6 mg/dL (1.6-2.6); Potassium 3.7 mEq/L (3.5-5.1)
[2021-07-02] MEDS: *HR* Heparin 5,000 UNIT/ML VIAL SQ SCH ×2 (05:55→16:50)
[2021-07-02] MEDS: Insulin LISPRO 300 UNITS/3 ML VIAL SUBQ SCH ×3 (08:00→16:51)
[2021-07-02] MEDS: Aspirin 81 MG TAB.CHEW PO SCH (09:45)
[2021-07-02] MEDS: carvediloL 6.25 MG TABLET PO SCH ×2 (09:45→16:50)
[2021-07-02] MEDS: Ranolazine 500 MG TAB.ER.12H PO SCH ×2 (09:45→20:53)
[2021-07-02] MEDS: hydrALAZINE 25 MG TABLET PO SCH ×3 (09:45→20:51)
[2021-07-02] MEDS: cloNIDine HCL 0.1 MG TABLET PO SCH ×3 (09:45→20:52)
[2021-07-02] MEDS: Isosorbide MONOnitrate (24 HR) 60 MG TAB.ER.24H PO SCH (09:46)
[2021-07-02] MEDS: *HR* Ticagrelor 90 MG TABLET PO SCH ×2 (09:46→20:57)
[2021-07-02] MEDS: Folic Acid 1 MG TABLET PO SCH ×2 (09:46→20:52)
[2021-07-02] MEDS: Artificial Tears SOLN 15 ML BOTTLE BOTH EYES SCH (20:50)
[2021-07-02] MEDS: NIFEdipine XL (24 HR) 30 MG TAB.ER.24 PO SCH (20:51)
[2021-07-02] MEDS: Melatonin 3 MG TABLET PO PRN (23:21)
[2021-07-03 02:22] LABS: Basophils % 0.5 %; Eosinophils # 0.2 K/mcL (0.0-0.6); Eosinophils % 3.3 %; Hematocrit 26.3 % (37.5-50.1); Hemoglobin 8.8 g/dL (12.9-16.9); Immature Granulocytes % 0.5 % (0-4); Lymphocytes # 1.1 K/mcL (0.6-4.6); Lymphocytes % 19.7 %; Mean Corpuscular HGB Conc 33.5 g/dL (31.6-35.5); Mean Corpuscular Hemoglobin 29.3 pg (28.0-33.3); Mean Corpuscular Volume 87.7 fL (83.0-100.0); Mean Platelet Volume 9.3 fL (9.4-12.4); Monocytes # 0.7 K/mcL (0.0-1.3); Monocytes % 11.6 %; Neutrophils # 3.7 K/mcL (1.6-8.9); Platelet Count 221 K/mcL (140-400); Red Cell Distribution Width 12.6 % (11.5-14.5); Segmented Neutrophils % 64.4 %; White Blood Count 5.7 K/mcL (4.3-11.1)
[2021-07-03 02:43] LABS: Potassium 4.1 mEq/L (3.5-5.1)
[2021-07-03 06:55] VITALS: PULSE 77; O2SAT 97
[2021-07-03] MEDS ORDERED: 0.9 % Sodium Chloride 250 ML IVC PRN (07:04)
[2021-07-03] MEDS ORDERED: *HR* Heparin 10,000 UNIT/10 ML VIAL IV PRN (07:33)
[2021-07-03] MEDS: Insulin LISPRO 300 UNITS/3 ML VIAL SUBQ SCH ×2 (08:28→11:58)
[2021-07-03] MEDS: *HR* Heparin 5,000 UNIT/ML VIAL SQ SCH (08:33)
[2021-07-03] MEDS: carvediloL 6.25 MG TABLET PO SCH ×2 (13:57→15:04)
[2021-07-03] MEDS: cloNIDine HCL 0.1 MG TABLET PO SCH ×2 (13:58→15:03)
[2021-07-03] MEDS: hydrALAZINE 25 MG TABLET PO SCH ×2 (13:58→15:04)
[2021-07-03] MEDS: Aspirin 81 MG TAB.CHEW PO SCH (15:03)
[2021-07-03] MEDS: Ranolazine 500 MG TAB.ER.12H PO SCH (15:03)
[2021-07-03] MEDS: Folic Acid 1 MG TABLET PO SCH (15:04)
[2021-07-03] MEDS: Isosorbide MONOnitrate (24 HR) 60 MG TAB.ER.24H PO SCH (15:04)
[2021-07-03] MEDS: *HR* Ticagrelor 90 MG TABLET PO SCH (15:05)
[2021-07-03 15:54] VITALS: BP 179/96; TEMP 99.3
== END 2021-07-03 15:38 | disposition home or self-care (01) | DRG 674 ==
LOC: EMEROOARM 15:15 → 2ANU 15:15 → SUATTDRO 23:35 → 2ANU 06-14 01:14 → SUATTDRO 06-16 18:56 → 2ANU 06-20 11:05
PROVIDERS: ADMIT Internal Medicine; ATTEND Internal Medicine
PROC: IRPERMA (2021-06-18 12:00)

== ENCOUNTER 2021-07-14 11:32 | Inpatient (IN) ==
[2021-07-14 14:43] LABS: Bilirubin,Urine Negative (Negative); Blood,Urine Trace (Negative); Clarity,Urine Clear (Clear); Color,Urine Light-Yellow (Yellow); Glucose,Urine (UA) >=1000 mg/dL (Normal); Ketones,Urine Negative (Negative); Leukocyte Esterase,Urine Negative (Negative); Nitrite,Urine Negative (Negative); PH,Urine 7.5 pH Units (5.0-8.0); Protein,Urine >=300 mg/dL (Neg-Trace); RBC,Urine 0-3 per hpf (0-3); Specific Gravity,Urine 1.019 (1.010-1.025); Urobilinogen,Urine Normal (Normal); WBC,Urine 0-3 per hpf (0-3)
[2021-07-14 16:08] LABS: Basophils % 0.5 %; Eosinophils # 0.1 K/mcL (0.0-0.6); Eosinophils % 1.8 %; Hematocrit 28.5 % (37.5-50.1); Hemoglobin 9.6 g/dL (12.9-16.9); Immature Granulocytes % 0.6 % (0-4); Lymphocytes % 15.8 %; Mean Corpuscular HGB Conc 33.7 g/dL (31.6-35.5); Mean Corpuscular Hemoglobin 30.2 pg (28.0-33.3); Mean Corpuscular Volume 89.6 fL (83.0-100.0); Mean Platelet Volume 9.5 fL (9.4-12.4); Monocytes # 0.4 K/mcL (0.0-1.3); Monocytes % 6.1 %; Neutrophils # 4.7 K/mcL (1.6-8.9); Platelet Count 251 K/mcL (140-400); Red Blood Count 3.18 M/mcL (4.19-5.50); Red Cell Distribution Width 12.1 % (11.5-14.5); Segmented Neutrophils % 75.2 %; White Blood Count 6.2 K/mcL (4.3-11.1)
[2021-07-14 16:33] LABS: Albumin 3.4 g/dL (3.5-5.7); Albumin/Globulin Ratio 1.7 (1.1-2.2); Bilirubin,Total 0.3 mg/dL (0.3-1.0); Calcium 8.4 mg/dL (8.6-10.3); Potassium 3.5 mEq/L (3.5-5.1); Total Protein 5.4 g/dL (6.4-8.9); Troponin I 0.03 ng/mL (< 0.04)
[2021-07-14] MEDS ORDERED: 0.9 % Sodium Chloride 1,000 ML IV ONE (17:09)
[2021-07-14] MEDS ORDERED: Insulin Human Regular 10 UNIT in 0.9 % Sodium Chloride 10 ML IV ONE ×2 (17:09→19:36)
[2021-07-14] MEDS ORDERED: Naloxone 0.4 MG/ML INJ IVP PRN (22:01)
[2021-07-14] MEDS: niCARdipine 20 MG/200 ML MLS IVC SCH (22:21)
[2021-07-15] MEDS ORDERED: D5% in Water 1,000 ML IVC PRN (00:40)
[2021-07-15] MEDS ORDERED: Dextrose Gel 15 GM/37.5 ML TUBE PO PRN ×2 (00:40)
[2021-07-15] MEDS ORDERED: *HR* Dextrose 50 % in Water (Syg) 50 ML SYRINGE IVP PRN (00:40)
[2021-07-15] MEDS: niCARdipine 20 MG/200 ML MLS IVC SCH ×6 (01:06→22:45)
[2021-07-15] MEDS ORDERED: Melatonin 3 MG TABLET PO ONE (04:58)
[2021-07-15] MEDS: *HR* Heparin 5,000 UNIT/ML VIAL SQ SCH ×3 (05:49→21:43)
[2021-07-15 06:06] LABS: Basophils # 0.1 K/mcL (0.0-0.2); Basophils % 0.7 %; Eosinophils # 0.3 K/mcL (0.0-0.6); Eosinophils % 3.4 %; Hematocrit 25.5 % (37.5-50.1); Hemoglobin 8.5 g/dL (12.9-16.9); Immature Granulocytes % 0.4 % (0-4); Lymphocytes # 1.8 K/mcL (0.6-4.6); Lymphocytes % 24.9 %; Mean Corpuscular HGB Conc 33.3 g/dL (31.6-35.5); Mean Corpuscular Hemoglobin 29.1 pg (28.0-33.3); Mean Corpuscular Volume 87.3 fL (83.0-100.0); Mean Platelet Volume 9.3 fL (9.4-12.4); Monocytes # 0.6 K/mcL (0.0-1.3); Neutrophils # 4.6 K/mcL (1.6-8.9); Platelet Count 278 K/mcL (140-400); Red Blood Count 2.92 M/mcL (4.19-5.50); Red Cell Distribution Width 12.5 % (11.5-14.5); Segmented Neutrophils % 62.6 %; White Blood Count 7.4 K/mcL (4.3-11.1)
[2021-07-15 06:29] LABS: Calcium 7.9 mg/dL (8.6-10.3); Potassium 3.2 mEq/L (3.5-5.1)
[2021-07-15] MEDS: Insulin LISPRO 300 UNITS/3 ML VIAL SUBQ SCH ×3 (08:10→17:29)
[2021-07-15 08:44] LABS: Magnesium 1.2 mg/dL (1.6-2.6)
[2021-07-15] MEDS ORDERED: *HR* Heparin 10,000 UNIT/10 ML VIAL IV PRN ×2 (08:49)
[2021-07-15] MEDS ORDERED: 0.9 % Sodium Chloride 250 ML IVC PRN (08:49)
[2021-07-15] MEDS ORDERED: 0.9 % Sodium Chloride 1,000 ML PRIME SCH (09:00)
[2021-07-15 10:53] LABS: Hepatitis B Surface Antibody < 3.10 mIU/mL
[2021-07-15 11:04] LABS: Hepatitis B Surface Antigen Nonreactive (Nonreactive)
[2021-07-15 11:23] LABS: Estimated Average Glucose 197 mg/dl; Hemoglobin A1C 8.5 %
[2021-07-15] MEDS ORDERED: Insulin DETEMIR 100 UNIT/ML X5UNITS SUBQ SCH (21:00)
[2021-07-15] MEDS ORDERED: *HR* LORazepam 2 MG/ML VIAL IVP ONE (21:03)
[2021-07-15] MEDS: hydrALAZINE 25 MG TABLET PO SCH (23:37)
[2021-07-16] MEDS ORDERED: Melatonin 3 MG TABLET PO PRN (02:10)
[2021-07-16] MEDS: niCARdipine 20 MG/200 ML MLS IVC SCH ×4 (04:51→12:50)
[2021-07-16] MEDS: *HR* Heparin 5,000 UNIT/ML VIAL SQ SCH (05:44)
[2021-07-16 08:03] LABS: Hematocrit 26.3 % (37.5-50.1); Hemoglobin 8.9 g/dL (12.9-16.9); Mean Corpuscular HGB Conc 33.8 g/dL (31.6-35.5); Mean Corpuscular Hemoglobin 29.9 pg (28.0-33.3); Mean Corpuscular Volume 88.3 fL (83.0-100.0); Mean Platelet Volume 9.2 fL (9.4-12.4); Platelet Count 277 K/mcL (140-400); Red Blood Count 2.98 M/mcL (4.19-5.50); Red Cell Distribution Width 12.8 % (11.5-14.5); White Blood Count 6.8 K/mcL (4.3-11.1)
[2021-07-16] MEDS: hydrALAZINE 25 MG TABLET PO SCH (08:28)
[2021-07-16] MEDS: Insulin LISPRO 300 UNITS/3 ML VIAL SUBQ SCH ×2 (08:29→11:41)
[2021-07-16 08:31] LABS: Calcium 7.7 mg/dL (8.6-10.3); Potassium 3.5 mEq/L (3.5-5.1)
[2021-07-16] MEDS ORDERED: Ranolazine 500 MG TAB.ER.12H PO SCH (09:00)
[2021-07-16] MEDS ORDERED: *HR* Ticagrelor 90 MG TABLET PO SCH (09:00)
[2021-07-16] MEDS ORDERED: carvediloL 6.25 MG TABLET PO SCH (09:00)
[2021-07-16 10:48] VITALS: TEMP 98; O2SAT 98
[2021-07-16 11:59] VITALS: BP 134/76; PULSE 72
[2021-07-16] MEDS ORDERED: NIFEdipine XL (24 HR) 30 MG TAB.ER.24 PO SCH (21:00)
[2021-07-16] MEDS ORDERED: cloNIDine HCL 0.1 MG TABLET PO SCH (21:11)
== END 2021-07-16 15:30 | disposition home or self-care (01) | DRG 304 ==
LOC: 2NNU 11:32 → EMEROOARM 11:32 → 2NNU 22:37 → SUATTDRO 23:30
PROVIDERS: ADMIT Student in an Organized Health Care Education/Training Program; ATTEND Student in an Organized Health Care Education/Training Program

== ENCOUNTER 2021-11-04 10:22 | Observation (INO) ==
[2021-11-04 12:23] LABS: Basophils % 0.5 %; Eosinophils # 0.3 K/mcL (0.0-0.6); Eosinophils % 3.6 %; Hematocrit 29.9 % (37.5-50.1); Hemoglobin 10.1 g/dL (12.9-16.9); Immature Granulocytes % 0.5 % (0-4); Lymphocytes # 1.1 K/mcL (0.6-4.6); Lymphocytes % 14.5 %; Mean Corpuscular HGB Conc 33.8 g/dL (31.6-35.5); Mean Corpuscular Hemoglobin 29.3 pg (28.0-33.3); Mean Corpuscular Volume 86.7 fL (83.0-100.0); Monocytes # 0.5 K/mcL (0.0-1.3); Monocytes % 6.6 %; Neutrophils # 5.6 K/mcL (1.6-8.9); Platelet Count 225 K/mcL (140-400); Red Blood Count 3.45 M/mcL (4.19-5.50); Segmented Neutrophils % 74.3 %; White Blood Count 7.6 K/mcL (4.3-11.1)
[2021-11-04 12:31] LABS: INR 0.9; Prothrombin Time 10.4 Seconds (9.4-12.1)
[2021-11-04 12:34] LABS: Activated Partial Thrombo Time 30.3 Seconds (26.0-36.0)
[2021-11-04 12:56] LABS: Calcium 8.9 mg/dL (8.6-10.3); Potassium 3.2 mEq/L (3.5-5.1); Troponin I 0.03 ng/mL (< 0.04)
[2021-11-04] MEDS ORDERED: Naloxone 0.4 MG/ML INJ IVP PRN (13:50)
[2021-11-04] MEDS ORDERED: Perflutren Lipid Microsphere 1.3 ML in 0.9 % Sodium Chloride 8.7 ML IVP PRN (13:54)
[2021-11-04] MEDS ORDERED: *HR* Dextrose 50 % in Water (Syg) 50 ML SYRINGE IVP PRN (13:56)
[2021-11-04] MEDS ORDERED: D5% in Water 1,000 ML IVC PRN (13:56)
[2021-11-04] MEDS ORDERED: Dextrose Gel 15 GM/37.5 ML TUBE PO PRN ×2 (13:56)
[2021-11-04] MEDS ORDERED: Nitroglycerin 0.4 MG TAB.SUBL SL PRN (13:59)
[2021-11-04] MEDS ORDERED: 0.9 % Sodium Chloride 250 ML IVC PRN (14:05)
[2021-11-04] MEDS ORDERED: *HR* Heparin 10,000 UNIT/10 ML VIAL IV PRN (14:05)
[2021-11-04] MEDS ORDERED: 0.9 % Sodium Chloride 1,000 ML PRIME SCH (14:15)
[2021-11-04 16:11] LABS: Hepatitis B Surface Antibody 628.69 mIU/mL
[2021-11-04 16:22] LABS: Hepatitis B Surface Antigen Nonreactive (Nonreactive)
[2021-11-04] MEDS: *HR* Heparin 5,000 UNIT/ML VIAL SQ SCH (17:46)
[2021-11-04] MEDS: Insulin LISPRO 300 UNITS/3 ML VIAL SUBQ SCH (17:46)
[2021-11-04] MEDS ORDERED: Insulin LISPRO 300 UNITS/3 ML VIAL SUBQ SCH (21:00)
[2021-11-05 02:23] LABS: Basophils % 0.5 %; Eosinophils # 0.3 K/mcL (0.0-0.6); Eosinophils % 4.1 %; Hematocrit 27.1 % (37.5-50.1); Hemoglobin 9.1 g/dL (12.9-16.9); Immature Granulocytes % 0.3 % (0-4); Lymphocytes # 1.5 K/mcL (0.6-4.6); Lymphocytes % 23.4 %; Mean Corpuscular HGB Conc 33.6 g/dL (31.6-35.5); Mean Corpuscular Hemoglobin 29.5 pg (28.0-33.3); Monocytes # 0.5 K/mcL (0.0-1.3); Monocytes % 7.7 %; Neutrophils # 4.1 K/mcL (1.6-8.9); Platelet Count 188 K/mcL (140-400); Red Blood Count 3.08 M/mcL (4.19-5.50); Red Cell Distribution Width 13.1 % (11.5-14.5); White Blood Count 6.4 K/mcL (4.3-11.1)
[2021-11-05 02:41] LABS: Calcium 8.1 mg/dL (8.6-10.3); Magnesium 1.6 mg/dL (1.6-2.6); Phosphorous 2.6 mg/dL (2.7-4.5); Potassium 3.6 mEq/L (3.5-5.1)
[2021-11-05 03:35] LABS: Estimated Average Glucose 163 mg/dl; Hemoglobin A1C 7.3 %
[2021-11-05 04:14] VITALS: TEMP 98.2
[2021-11-05] MEDS: *HR* Heparin 5,000 UNIT/ML VIAL SQ SCH (05:23)
[2021-11-05] MEDS ORDERED: Regadenoson 0.4 MG/5 ML SYRINGE IVP ONE (06:19)
[2021-11-05] MEDS: Insulin LISPRO 300 UNITS/3 ML VIAL SUBQ SCH ×2 (08:14→12:26)
[2021-11-05] MEDS ORDERED: Aspirin 81 MG TAB.CHEW PO SCH (09:00)
[2021-11-05] MEDS ORDERED: hydrOXYzine pamoate 25 MG CAPSULE PO PRN (09:40)
[2021-11-05] MEDS ORDERED: cloNIDine HCL 0.1 MG TABLET PO SCH (10:00)
[2021-11-05] MEDS ORDERED: carvediloL 6.25 MG TABLET PO SCH (10:00)
[2021-11-05] MEDS ORDERED: lisinopriL 20 MG TABLET PO SCH (10:00)
[2021-11-05] MEDS ORDERED: Ranolazine 500 MG TAB.ER.12H PO SCH (11:00)
[2021-11-05] MEDS ORDERED: *HR* Ticagrelor 90 MG TABLET PO SCH (11:00)
[2021-11-05 11:02] VITALS: BP 164/75; PULSE 78; O2SAT 98
[2021-11-05] MEDS ORDERED: hydrALAZINE 25 MG TABLET PO SCH (21:00)
[2021-11-05] MEDS ORDERED: Folic Acid 1 MG TABLET PO SCH (21:00)
[2021-11-05] MEDS ORDERED: NIFEdipine XL (24 HR) 30 MG TAB.ER.24 PO SCH (21:00)
== END 2021-11-05 14:15 | disposition home or self-care (01) ==
LOC: 2ANU 10:22 → EMEROOARM 10:22 → SUATTDRO 14:12 → 2ANU 16:35
PROVIDERS: ADMIT Student in an Organized Health Care Education/Training Program; ATTEND Internal Medicine

== ENCOUNTER 2021-12-05 05:33 | Inpatient (IN) ==
[2021-12-05 07:07] LABS: INR 0.9; Prothrombin Time 10.3 Seconds (9.4-12.1)
[2021-12-05 07:10] LABS: Activated Partial Thrombo Time 21.9 Seconds (26.0-36.0)
[2021-12-05 07:19] LABS: Albumin 3.3 g/dL (3.5-5.7); Albumin/Globulin Ratio 1.7 (1.1-2.2); Bilirubin,Direct 0.1 mg/dL (0.0-0.2); Bilirubin,Indirect 0.6 mg/dL (0.0-1.0); Bilirubin,Total 0.7 mg/dL (0.3-1.0); Calcium 7.9 mg/dL (8.6-10.3); Globulin 1.9 g/dL (2.4-3.5); Potassium 3.7 mEq/L (3.5-5.1); Total Protein 5.2 g/dL (6.4-8.9); Troponin I 0.04 ng/mL (< 0.04)
[2021-12-05 07:31] LABS: Influenza A PCR Negative (Negative); Influenza B PCR Negative (Negative); Resp. Syncytial Virus PCR Negative (Negative)
[2021-12-05] MEDS ORDERED: *HR* Labetalol 20 MG/4 ML SYRINGE IVP ONE (07:46)
[2021-12-05 07:54] LABS: Basophils % 0.2 %
[2021-12-05 08:00] LABS: Eosinophils # 0.1 K/mcL (0.0-0.6); Eosinophils % 1.3 %; Hematocrit 26.6 % (37.5-50.1); Immature Granulocytes % 0.5 % (0-4); Lymphocytes # 0.6 K/mcL (0.6-4.6); Lymphocytes % 6.2 %; Mean Corpuscular HGB Conc 33.8 g/dL (31.6-35.5); Mean Corpuscular Hemoglobin 31.3 pg (28.0-33.3); Mean Corpuscular Volume 92.4 fL (83.0-100.0); Mean Platelet Volume 9.7 fL (9.4-12.4); Monocytes # 0.9 K/mcL (0.0-1.3); Monocytes % 9.3 %; Platelet Count 155 K/mcL (140-400); Red Blood Count 2.88 M/mcL (4.19-5.50); Red Cell Distribution Width 13.8 % (11.5-14.5); Segmented Neutrophils % 82.5 %; White Blood Count 9.7 K/mcL (4.3-11.1)
[2021-12-05 08:37] LABS: SARS-CoV-2 by PCR (In House) Negative (Negative)
[2021-12-05] MEDS ORDERED: Naloxone 0.4 MG/ML INJ IVP PRN (08:40)
[2021-12-05] MEDS ORDERED: Ondansetron 4 MG/2 ML VIAL IVP PRN (08:40)
[2021-12-05] MEDS ORDERED: Melatonin 3 MG TABLET PO PRN (08:40)
[2021-12-05] MEDS ORDERED: *HR* Dextrose 50 % in Water (Syg) 50 ML SYRINGE IVP PRN (08:47)
[2021-12-05] MEDS ORDERED: Dextrose Gel 15 GM/37.5 ML TUBE PO PRN ×2 (08:47)
[2021-12-05] MEDS ORDERED: D5% in Water 1,000 ML IVC PRN (08:47)
[2021-12-05] MEDS ORDERED: lisinopriL 20 MG TABLET PO SCH (09:00)
[2021-12-05] MEDS ORDERED: NIFEdipine XL (24 HR) 60 MG TAB.ER.24 PO SCH (09:00)
[2021-12-05] MEDS: Furosemide 40 MG/4 ML VIAL IVP SCH ×2 (09:44→21:18)
[2021-12-05] MEDS: cloNIDine HCL 0.1 MG TABLET PO SCH ×3 (09:44→21:17)
[2021-12-05] MEDS: *HR* Ticagrelor 90 MG TABLET PO SCH ×2 (09:44→21:17)
[2021-12-05] MEDS: Insulin LISPRO 300 UNITS/3 ML VIAL SUBQ SCH ×2 (14:15→17:05)
[2021-12-05] MEDS: *HR* Heparin 5,000 UNIT/ML VIAL SQ SCH ×2 (14:21→21:18)
[2021-12-05] MEDS: Nitroglycerin 1 INCH/GM PACKET TP SCH (15:01)
[2021-12-05] MEDS: hydrALAZINE 25 MG TABLET PO SCH ×2 (16:17→23:54)
[2021-12-05] MEDS ORDERED: carvediloL 6.25 MG TABLET PO SCH (17:00)
[2021-12-05] MEDS ORDERED: Insulin DETEMIR 100 UNIT/ML X5UNITS SUBQ SCH (21:00)
[2021-12-06] MEDS: niCARdipine 20 MG/200 ML MLS IVC SCH ×10 (02:16→19:56)
[2021-12-06] MEDS: *HR* Heparin 5,000 UNIT/ML VIAL SQ SCH ×3 (05:27→20:46)
[2021-12-06 05:49] LABS: Basophils # 0.1 K/mcL (0.0-0.2); Basophils % 0.4 %; Eosinophils # 0.3 K/mcL (0.0-0.6); Eosinophils % 2.8 %; Hematocrit 30.8 % (37.5-50.1); Hemoglobin 10.5 g/dL (12.9-16.9); Immature Granulocytes % 0.4 % (0-4); Lymphocytes # 0.9 K/mcL (0.6-4.6); Lymphocytes % 8.4 %; Mean Corpuscular HGB Conc 34.1 g/dL (31.6-35.5); Mean Corpuscular Hemoglobin 31.8 pg (28.0-33.3); Mean Corpuscular Volume 93.3 fL (83.0-100.0); Mean Platelet Volume 9.8 fL (9.4-12.4); Monocytes % 8.5 %; Neutrophils # 8.9 K/mcL (1.6-8.9); Platelet Count 267 K/mcL (140-400); Red Cell Distribution Width 13.7 % (11.5-14.5); Segmented Neutrophils % 79.5 %; White Blood Count 11.2 K/mcL (4.3-11.1)
[2021-12-06 06:25] LABS: Albumin 3.7 g/dL (3.5-5.7); Albumin/Globulin Ratio 1.8 (1.1-2.2); Bilirubin,Total 0.8 mg/dL (0.3-1.0); Calcium 8.9 mg/dL (8.6-10.3); Globulin 2.1 g/dL (2.4-3.5); Phosphorous 3.4 mg/dL (2.7-4.5); Potassium 3.2 mEq/L (3.5-5.1); Total Protein 5.8 g/dL (6.4-8.9)
[2021-12-06] MEDS: Nitroglycerin 1 INCH/GM PACKET TP SCH ×2 (06:44→14:06)
[2021-12-06] MEDS ORDERED: 0.9 % Sodium Chloride 250 ML IVC PRN ×3 (07:45→09:26)
[2021-12-06] MEDS ORDERED: 0.9 % Sodium Chloride 1,000 ML PRIME SCH (07:45)
[2021-12-06] MEDS: Insulin LISPRO 300 UNITS/3 ML VIAL SUBQ SCH ×3 (08:12→16:46)
[2021-12-06] MEDS: *HR* Ticagrelor 90 MG TABLET PO SCH ×2 (13:15→19:54)
[2021-12-06] MEDS: Folic Acid 1 MG TABLET PO SCH ×2 (13:16→19:55)
[2021-12-06] MEDS: cloNIDine HCL 0.1 MG TABLET PO SCH ×3 (13:16→19:55)
[2021-12-06] MEDS: carvediloL 25 MG TABLET PO SCH ×2 (13:16→16:47)
[2021-12-06] MEDS: lisinopriL 20 MG TABLET PO SCH ×2 (13:17→19:54)
[2021-12-06] MEDS: Furosemide 40 MG/4 ML VIAL IVP SCH ×2 (13:17→19:53)
[2021-12-06] MEDS: hydrALAZINE 25 MG TABLET PO SCH ×2 (13:17→19:55)
[2021-12-06] MEDS: Ranolazine 500 MG TAB.ER.12H PO SCH ×2 (13:17→19:54)
[2021-12-06] MEDS: *HR* OxyCODONE/APAP 5/325 TABLET PO PRN ×2 (13:26→22:53)
[2021-12-06] MEDS ORDERED: Benzonatate 100 MG CAPSULE PO ONE (20:12)
[2021-12-06] MEDS ORDERED: Melatonin 3 MG TABLET PO SCH (21:00)
[2021-12-06] MEDS ORDERED: Insulin DETEMIR 100 UNIT/ML X5UNITS SUBQ SCH (21:00)
[2021-12-07 02:05] LABS: Hematocrit 23.5 % (37.5-50.1); Hemoglobin 7.9 g/dL (12.9-16.9); Mean Corpuscular HGB Conc 33.6 g/dL (31.6-35.5); Mean Corpuscular Hemoglobin 31.3 pg (28.0-33.3); Mean Corpuscular Volume 93.3 fL (83.0-100.0); Mean Platelet Volume 9.8 fL (9.4-12.4); Platelet Count 171 K/mcL (140-400); Red Blood Count 2.52 M/mcL (4.19-5.50); Red Cell Distribution Width 13.7 % (11.5-14.5); White Blood Count 7.7 K/mcL (4.3-11.1)
[2021-12-07 02:24] LABS: Calcium 7.8 mg/dL (8.6-10.3); Potassium 4.4 mEq/L (3.5-5.1)
[2021-12-07] MEDS: Menthol 1 EACH LOZENGE PO PRN ×2 (03:56→05:59)
[2021-12-07] MEDS: niCARdipine 20 MG/200 ML MLS IVC SCH ×2 (03:57→04:25)
[2021-12-07] MEDS: *HR* Heparin 5,000 UNIT/ML VIAL SQ SCH (06:00)
[2021-12-07] MEDS: Nitroglycerin 1 INCH/GM PACKET TP SCH (06:00)
[2021-12-07 07:39] VITALS: TEMP 98.2
[2021-12-07] MEDS: lisinopriL 20 MG TABLET PO SCH (08:28)
[2021-12-07] MEDS: Furosemide 40 MG/4 ML VIAL IVP SCH (08:28)
[2021-12-07] MEDS: Folic Acid 1 MG TABLET PO SCH (08:28)
[2021-12-07] MEDS: Ranolazine 500 MG TAB.ER.12H PO SCH (08:28)
[2021-12-07] MEDS: carvediloL 25 MG TABLET PO SCH (08:29)
[2021-12-07] MEDS: hydrALAZINE 25 MG TABLET PO SCH (08:29)
[2021-12-07] MEDS: cloNIDine HCL 0.1 MG TABLET PO SCH (08:29)
[2021-12-07] MEDS: *HR* Ticagrelor 90 MG TABLET PO SCH (08:29)
[2021-12-07] MEDS: Insulin LISPRO 300 UNITS/3 ML VIAL SUBQ SCH (08:32)
[2021-12-07 10:27] VITALS: PULSE 80
[2021-12-07 11:26] VITALS: BP 152/80; O2SAT 97
== END 2021-12-07 15:30 | disposition home or self-care (01) | DRG 280 ==
LOC: 2ANU 05:33 → EMEROOARM 05:33 → 2ANU 13:15 → 2NNU 18:04
PROVIDERS: ADMIT Hospitalist; ATTEND Hospitalist

== ENCOUNTER 2021-12-10 06:16 | Inpatient (IN) ==
[2021-12-10] MEDS ORDERED: NIFEdipine XL (24 HR) 30 MG TAB.ER.24 PO ONE (07:45)
[2021-12-10 08:19] LABS: Basophils % 0.5 %; Eosinophils # 0.2 K/mcL (0.0-0.6); Eosinophils % 3.9 %; Hematocrit 26.8 % (37.5-50.1); Hemoglobin 8.8 g/dL (12.9-16.9); Immature Granulocytes % 0.9 % (0-4); Lymphocytes # 0.8 K/mcL (0.6-4.6); Lymphocytes % 14.4 %; Mean Corpuscular HGB Conc 32.8 g/dL (31.6-35.5); Mean Corpuscular Hemoglobin 31.1 pg (28.0-33.3); Mean Corpuscular Volume 94.7 fL (83.0-100.0); Mean Platelet Volume 10.1 fL (9.4-12.4); Monocytes # 0.8 K/mcL (0.0-1.3); Monocytes % 13.4 %; Neutrophils # 3.9 K/mcL (1.6-8.9); Platelet Count 236 K/mcL (140-400); Red Blood Count 2.83 M/mcL (4.19-5.50); Red Cell Distribution Width 13.1 % (11.5-14.5); Segmented Neutrophils % 66.9 %; White Blood Count 5.8 K/mcL (4.3-11.1)
[2021-12-10 08:35] LABS: Calcium 7.9 mg/dL (8.6-10.3); Potassium 3.7 mEq/L (3.5-5.1)
[2021-12-10 08:45] LABS: Troponin I 0.15 ng/mL (< 0.04)
[2021-12-10] MEDS ORDERED: Ondansetron 4 MG/2 ML VIAL IVP PRN (09:36)
[2021-12-10] MEDS ORDERED: Naloxone 0.4 MG/ML INJ IVP PRN (09:36)
[2021-12-10] MEDS ORDERED: Melatonin 3 MG TABLET PO PRN (09:36)
[2021-12-10] MEDS ORDERED: Dextrose 4 GM Chewable Tablets PO PRN ×2 (15:00)
[2021-12-10] MEDS ORDERED: *HR* Dextrose 50 % in Water (Syg) 50 ML SYRINGE IVP PRN (15:00)
[2021-12-10] MEDS ORDERED: D5% in Water 1,000 ML IVC PRN (15:00)
[2021-12-10] MEDS: carvediloL 25 MG TABLET PO SCH (18:05)
[2021-12-10] MEDS: hydrALAZINE 25 MG TABLET PO SCH ×2 (18:05→22:38)
[2021-12-10] MEDS: cloNIDine HCL 0.1 MG TABLET PO SCH ×2 (18:06→22:39)
[2021-12-10] MEDS: Insulin LISPRO 300 UNITS/3 ML VIAL SUBQ SCH (18:06)
[2021-12-10] MEDS: Melatonin 3 MG TABLET PO SCH (20:37)
[2021-12-10] MEDS: *HR* Ticagrelor 90 MG TABLET PO SCH (20:37)
[2021-12-10] MEDS: Folic Acid 1 MG TABLET PO SCH (20:37)
[2021-12-10] MEDS: Ranolazine 500 MG TAB.ER.12H PO SCH (20:37)
[2021-12-10] MEDS: lisinopriL 20 MG TABLET PO SCH (20:38)
[2021-12-10] MEDS ORDERED: Insulin DETEMIR 100 UNIT/ML X5UNITS SUBQ SCH (21:00)
[2021-12-10] MEDS: Acetaminophen 325 MG TABLET PO PRN (22:39)
[2021-12-11 05:11] LABS: Basophils % 0.5 %; Eosinophils # 0.2 K/mcL (0.0-0.6); Eosinophils % 3.1 %; Hematocrit 26.8 % (37.5-50.1); Immature Granulocytes % 1.4 % (0-4); Lymphocytes # 1.1 K/mcL (0.6-4.6); Lymphocytes % 13.8 %; Mean Corpuscular HGB Conc 33.6 g/dL (31.6-35.5); Mean Corpuscular Volume 92.4 fL (83.0-100.0); Mean Platelet Volume 9.5 fL (9.4-12.4); Monocytes # 0.8 K/mcL (0.0-1.3); Monocytes % 10.3 %; Neutrophils # 5.5 K/mcL (1.6-8.9); Platelet Count 269 K/mcL (140-400); Segmented Neutrophils % 70.9 %; White Blood Count 7.7 K/mcL (4.3-11.1)
[2021-12-11 05:24] LABS: Calcium 8.4 mg/dL (8.6-10.3); Potassium 3.5 mEq/L (3.5-5.1)
[2021-12-11] MEDS ORDERED: *HR* Heparin 10,000 UNIT/10 ML VIAL IV PRN (08:24)
[2021-12-11] MEDS ORDERED: 0.9 % Sodium Chloride 250 ML IVC PRN (08:24)
[2021-12-11] MEDS: Insulin LISPRO 300 UNITS/3 ML VIAL SUBQ SCH ×3 (08:29→16:18)
[2021-12-11] MEDS ORDERED: 0.9 % Sodium Chloride 1,000 ML PRIME SCH (08:30)
[2021-12-11] MEDS: Folic Acid 1 MG TABLET PO SCH ×2 (08:54→21:54)
[2021-12-11] MEDS: lisinopriL 20 MG TABLET PO SCH ×2 (11:04→21:53)
[2021-12-11] MEDS: Ranolazine 500 MG TAB.ER.12H PO SCH ×2 (11:05→21:55)
[2021-12-11] MEDS: carvediloL 25 MG TABLET PO SCH ×2 (11:05→16:18)
[2021-12-11] MEDS: NIFEdipine XL (24 HR) 60 MG TAB.ER.24 PO SCH (11:05)
[2021-12-11] MEDS: cloNIDine HCL 0.1 MG TABLET PO SCH ×3 (11:05→21:53)
[2021-12-11] MEDS: hydrALAZINE 25 MG TABLET PO SCH ×3 (11:05→21:53)
[2021-12-11] MEDS: *HR* Ticagrelor 90 MG TABLET PO SCH ×2 (11:05→21:55)
[2021-12-11] MEDS ORDERED: Chloraseptic Spray 177 ML BOTTLE MM PRN (11:37)
[2021-12-11] MEDS: Benzonatate 100 MG CAPSULE PO PRN ×2 (12:05→21:54)
[2021-12-11] MEDS ORDERED: Perflutren Lipid Microsphere 1.3 ML in 0.9 % Sodium Chloride 8.7 ML IVP PRN (12:30)
[2021-12-11 16:14] LABS: Estimated Average Glucose 137 mg/dl; Hemoglobin A1C 6.4 %
[2021-12-11] MEDS: Melatonin 3 MG TABLET PO SCH (21:53)
[2021-12-11] MEDS: Acetaminophen 325 MG TABLET PO PRN (21:54)
[2021-12-12] MEDS: carvediloL 25 MG TABLET PO SCH ×2 (07:52→17:55)
[2021-12-12] MEDS: Insulin LISPRO 300 UNITS/3 ML VIAL SUBQ SCH ×3 (07:53→17:15)
[2021-12-12 08:14] LABS: Calcium 7.9 mg/dL (8.6-10.3); Potassium 3.9 mEq/L (3.5-5.1)
[2021-12-12] MEDS: *HR* Ticagrelor 90 MG TABLET PO SCH ×2 (09:30→20:01)
[2021-12-12] MEDS: cloNIDine HCL 0.1 MG TABLET PO SCH ×3 (09:31→20:00)
[2021-12-12] MEDS: hydrALAZINE 25 MG TABLET PO SCH ×3 (09:31→19:56)
[2021-12-12] MEDS: NIFEdipine XL (24 HR) 60 MG TAB.ER.24 PO SCH (09:31)
[2021-12-12] MEDS: Ranolazine 500 MG TAB.ER.12H PO SCH ×2 (09:31→20:00)
[2021-12-12] MEDS: Folic Acid 1 MG TABLET PO SCH ×2 (09:32→20:01)
[2021-12-12] MEDS: lisinopriL 20 MG TABLET PO SCH ×2 (09:32→20:01)
[2021-12-12] MEDS: Acetaminophen 325 MG TABLET PO PRN ×2 (13:13→19:59)
[2021-12-12] MEDS: Melatonin 3 MG TABLET PO SCH (19:56)
[2021-12-12] MEDS: Benzonatate 100 MG CAPSULE PO PRN (20:01)
[2021-12-13 05:32] LABS: Basophils # 0.1 K/mcL (0.0-0.2); Basophils % 0.8 %; Eosinophils # 0.2 K/mcL (0.0-0.6); Eosinophils % 3.8 %; Hematocrit 25.9 % (37.5-50.1); Hemoglobin 8.9 g/dL (12.9-16.9); Immature Granulocytes % 1.6 % (0-4); Lymphocytes # 1.2 K/mcL (0.6-4.6); Lymphocytes % 18.6 %; Mean Corpuscular HGB Conc 34.4 g/dL (31.6-35.5); Mean Corpuscular Hemoglobin 32.2 pg (28.0-33.3); Mean Corpuscular Volume 93.8 fL (83.0-100.0); Mean Platelet Volume 9.5 fL (9.4-12.4); Monocytes # 0.7 K/mcL (0.0-1.3); Monocytes % 11.4 %; Platelet Count 320 K/mcL (140-400); Red Blood Count 2.76 M/mcL (4.19-5.50); Segmented Neutrophils % 63.8 %; White Blood Count 6.2 K/mcL (4.3-11.1)
[2021-12-13 05:50] LABS: Calcium 8.4 mg/dL (8.6-10.3); Potassium 4.1 mEq/L (3.5-5.1)
[2021-12-13] MEDS ORDERED: *HR* Heparin 10,000 UNIT/10 ML VIAL IV PRN (08:04)
[2021-12-13] MEDS ORDERED: 0.9 % Sodium Chloride 250 ML IVC PRN (08:04)
[2021-12-13] MEDS ORDERED: 0.9 % Sodium Chloride 1,000 ML PRIME SCH (08:15)
[2021-12-13] MEDS: Insulin LISPRO 300 UNITS/3 ML VIAL SUBQ SCH ×3 (08:22→15:48)
[2021-12-13] MEDS: cloNIDine HCL 0.1 MG TABLET PO SCH ×3 (08:31→20:03)
[2021-12-13] MEDS: *HR* Ticagrelor 90 MG TABLET PO SCH ×2 (08:32→20:08)
[2021-12-13] MEDS: Ranolazine 500 MG TAB.ER.12H PO SCH ×2 (08:32→20:04)
[2021-12-13] MEDS: lisinopriL 20 MG TABLET PO SCH ×2 (08:32→20:06)
[2021-12-13] MEDS: carvediloL 25 MG TABLET PO SCH ×2 (08:32→15:51)
[2021-12-13] MEDS: NIFEdipine XL (24 HR) 60 MG TAB.ER.24 PO SCH (08:32)
[2021-12-13] MEDS: hydrALAZINE 25 MG TABLET PO SCH ×3 (08:32→20:06)
[2021-12-13] MEDS: Folic Acid 1 MG TABLET PO SCH ×2 (08:33→20:05)
[2021-12-13] MEDS: Thiamine (B-1) 100 MG TABLET PO SCH (15:47)
[2021-12-13] MEDS: ARIPiprazole 2 MG TABLET PO SCH (15:47)
[2021-12-13] MEDS: Melatonin 3 MG TABLET PO SCH (20:04)
[2021-12-14] MEDS: carvediloL 25 MG TABLET PO SCH (07:43)
[2021-12-14] MEDS: ARIPiprazole 2 MG TABLET PO SCH (07:44)
[2021-12-14] MEDS: Folic Acid 1 MG TABLET PO SCH (07:44)
[2021-12-14] MEDS: hydrALAZINE 25 MG TABLET PO SCH (07:44)
[2021-12-14] MEDS: *HR* Ticagrelor 90 MG TABLET PO SCH (07:44)
[2021-12-14] MEDS: Insulin LISPRO 300 UNITS/3 ML VIAL SUBQ SCH ×2 (07:44→11:34)
[2021-12-14] MEDS: cloNIDine HCL 0.1 MG TABLET PO SCH (07:44)
[2021-12-14] MEDS: Ranolazine 500 MG TAB.ER.12H PO SCH (07:45)
[2021-12-14] MEDS: Thiamine (B-1) 100 MG TABLET PO SCH (07:45)
[2021-12-14] MEDS: lisinopriL 20 MG TABLET PO SCH (07:45)
[2021-12-14] MEDS: NIFEdipine XL (24 HR) 60 MG TAB.ER.24 PO SCH (07:45)
[2021-12-14] MEDS ORDERED: Cyanocobalamin (B-12) 1,000 MCG TABLET PO SCH (09:00)
[2021-12-14 11:17] VITALS: BP 158/65; PULSE 65; TEMP 98; O2SAT 97
== END 2021-12-14 13:29 | disposition home health service (06) | DRG 280 ==
LOC: 2ANU 06:16 → EMEROOARM 06:16 → SUATTDRO 09:36 → 2ANU 11:30
PROVIDERS: ADMIT Hospitalist; ATTEND General Practice